=== PATIENT | female | born 1965 | race Hispanic/Latino ===

== ENCOUNTER 2018-02-07 14:52 | Emergency (ER) | payer SELFPAY ==
--- NOTE | 2018-02-07 17:08 | RAD REPORT ---
EXAM DESCRIPTION: RAD - C Spine Ap/Lat - 02/07/2018 4:54 pm CLINICAL HISTORY: Slip and fall, neck pain COMPARISON: None. FINDINGS: Cervical bodies are normal in height and alignment. No fracture or acute bony process seen . No disc space narrowing. Minimal spurring seen anterior inferior margin of C5. No facet joint align ment abnormality. Right lateral tilt of the neck may be muscle spasm or positioning artifact. There is no prevertebral soft tissue thickening or other suspicious soft tissue finding. IMPRESSION: Negative cervical spine examination for acute or significant finding.
--- NOTE | 2018-02-07 17:08 | RAD REPORT ---
EXAM DESCRIPTION: RAD - Lumbar Spine 3 Views - 02/07/2018 4:56 pm CLINICAL HISTORY: Slip and fall, back pain COMPARISON: None. FINDINGS: A three-view lumbar spine examination was performed. Lumbar bodies are normal in height an d alignment. No fracture or acute bony process seen. L4-5 disc space narrowing present. Prominent for age L3-4 and L4-5 facet degenerative change. L5-S1 facet degenerative changes less prominent. No par s defects identified. IMPRESSION: No compression fracture or acute lumbar finding identifiable. L4-5 degenerative disc disease with prominent lower lumbar facet degenerative change.
--- NOTE | 2018-02-07 17:19 | EDPHYS ---
Physician Documentation [facility] Name: Mary Maharaj Age: 52 yrs Sex: Female : 1965 Arrival Date: 02/07/2018 Time: 14:55 Bed 15 Private MD: ED Physician Tanvi Avery HPI: 02/07 16:52 This 52 yrs old Female presents to ER via Ambulatory with complaints of Fall jr8 Injury - BACK,KNEES,SHOULDER. 16:52 Details of fall: The patient fell from an upright position. Onset: The symptoms/episode jr8 began/occurred acutely, today. Associated injuries: The patient sustained neck injury, injury to the low back. Severity of symptoms: At their worst the symptoms were mild, in the emergency department the symptoms are unchanged. The patient has not experienced similar symptoms in the past. The patient has not recently seen a physician. While at work tripped and fell down stairs. Denies hitting head. Complains of neck pain and low back pain. Historical: - Allergies: 15:00 No Known Allergies; sv - PSHx: 15:00 shoulder surg; ; sv - Immunization history:: Adult Immunizations up to date. - Ebola Screening: : No symptoms or risks identified at this time. ROS: 16:52 Eyes: Negative for injury, pain, redness, and discharge, ENT: Negative for injury, jr8 pain, and discharge, Cardiovascular: Negative for chest pain, palpitations, and edema, Respiratory: Negative for shortness of breath, cough, wheezing, and pleuritic chest pain, Abdomen/GI: Negative for abdominal pain, nausea, vomiting, diarrhea, and constipation, MS/Extremity: Negative for injury and deformity, Skin: Negative for injury, rash, and discoloration, Neuro: Negative for headache, weakness, numbness, tingling, and seizure. 16:52 Neck: Positive for pain with movement, pain at rest, tenderness, bony tenderness. 16:52 Back: Positive for pain at rest, pain with movement, of the lumbar area, left low back and right low back. Exam: 16:52 Head/Face: Normocephalic, atraumatic. Eyes: Pupils equal round and reactive to light, jr8 extra-ocular motions intact. Lids and lashes normal. Conjunctiva and sclera are non-icteric and not injected. Cornea within normal limits. Periorbital areas with no swelling, redness, or edema. ENT: Nares patent. No nasal discharge, no septal abnormalities noted. Tympanic membranes are normal and external auditory canals are clear. Oropharynx with no redness, swelling, or masses, exudates, or evidence of obstruction, uvula midline. Mucous membranes moist. Cardiovascular: Regular rate and rhythm with a normal S1 and S2. No gallops, murmurs, or rubs. Normal PMI, no JVD. No pulse deficits. Respiratory: Lungs have equal breath sounds bilaterally, clear to auscultation and percussion. No rales, rhonchi or wheezes noted. No increased work of breathing, no retractions or nasal flaring. Abdomen/GI: Soft, non-tender, with normal bowel sounds. No distension or tympany. No guarding or rebound. No evidence of tenderness throughout. Skin: Warm, dry with normal turgor. Normal color with no rashes, no lesions, and no evidence of cellulitis. MS/ Extremity: Pulses equal, no cyanosis. Neurovascular intact. Full, normal range of motion. Neuro: Awake and alert, GCS 15, oriented to person, place, time, and situation. Cranial nerves II-XII grossly intact. Motor strength 5/5 in all extremities. Sensory grossly intact. Cerebellar exam normal. Normal gait. 16:52 Neck: External neck: tenderness, that is mild, of the left mid cervical area, right mid cervical area, left trapezius, lower cervical area and right trapezius, C-spine: vertebral tenderness, that is mild, appreciated at C5 and C6, Thyroid: appears normal, Trachea: is midline with no obvious abnormalities, ROM/movement: pain, that is mild, with any movement. 16:52 Back: pain, that is mild, of the lumbar area and low back area, ROM is painful, with rotation to the left, with flexion, normal spinal alignment noted, CVA tenderness, is absent, vertebral tenderness, is not appreciated. Vital Signs: 15:00 BP 138 / 63; Pulse 57; Resp 18; Temp 97.6; Pulse Ox 99% ; Weight 71.67 kg; Height 5 ft. sv 1 in. (154.94 cm); Pain 8/10; 15:00 Body Mass Index 29.85 (71.67 kg, 154.94 cm) sv MDM: 15:53 Patient medically screened. jr8 17:17 Data reviewed: vital signs, nurses notes, radiologic studies, plain films, and as a jr8 result, I will discharge patient. Data interpreted: Pulse oximetry: on room air is 99 %. Interpretation: normal. Counseling: I had a detailed discussion with the patient and/or guardian regarding: the historical points, exam findings, and any diagnostic results supporting the discharge/admit diagnosis, radiology results, the need for outpatient follow up, a family practitioner, to return to the emergency department if symptoms worsen or persist or if there are any questions or concerns that arise at home. 02/07 16:28 Order name: XRAY C Spine Ap/lat; Complete Time: 17:17 jr8 02/07 16:28 Order name: XRAY Lumbar Spine (3 Views); Complete Time: 17:17 jr8 Administered Medications: No medications were administered Disposition: 17:23 Co-signature as Attending Physician, Tanvi Avery MD. ma2 Disposition: 02/07/18 17:19 Discharged to Home. Impression: Low back pain, Sprain of ligaments of cervical spine. - Condition is Stable. - Discharge Instructions: Back Pain, Adult, Musculoskeletal Pain, Cervical Sprain, Heat Therapy. - Prescriptions for Ibuprofen 800 mg Oral Tablet - take 1 tablet by ORAL route every 12 hours As needed take with food; 20 tablet. Zanaflex 4 mg Oral Tablet - take 1 tablet by ORAL route every 8 hours As needed; 20 tablet. - Medication Reconciliation Form, Thank You Letter, Antibiotic Education, Prescription Opioid Use form. - Follow up: Private Physician; When: 1 week; Reason: Recheck today's complaints, Continuance of care, Re-evaluation by your physician. - Problem is new. - Symptoms have improved. Signatures: Dispatcher [employer] EDNaomy Arredondo RN RN aj1 Helena Mack RN RN sv Roszak, Josh, PA PA jr8 Tanvi Avery MD MD ma2 Corrections: (The following items were deleted from the chart) 18:00 17:19 02/07/2018 17:19 Discharged to Home. Impression: Low back pain; Sprain of aj1 ligaments of cervical spine. Condition is Stable. Forms are Medication Reconciliation Form, Thank You Letter, Antibiotic Education, Prescription Opioid Use. Follow up: Private Physician; When: 1 week; Reason: Recheck today's complaints, Continuance of care, Re-evaluation by your physician. Problem is new. Symptoms have improved. jr8
--- NOTE | 2018-02-07 17:19 | ER ---
Nurse's Notes [facility] Name: Mary Maharaj Age: 52 yrs Sex: Female : 1965 Arrival Date: 02/07/2018 Time: 14:55 Bed 15 Private MD: Diagnosis: Low back pain;Sprain of ligaments of cervical spine Presentation: 02/07 14:58 Presenting complaint: Patient states: slipped and fell on a slick floor down 5 steps, sv c/o head pain, hebert knee pain, low back pain, hebert shoulder/neck pain started last night. Denies LOC. Care prior to arrival: None. 14:58 Acuity: GRACIELA 4 sv 14:58 Method Of Arrival: Ambulatory sv 14:59 Transition of care: patient was not received from another setting of care. Onset of sv symptoms was February 06, 2018. 15:02 Note APAP taken last night. sv 17:59 Risk Assessment: Do you want to hurt yourself or someone else? Patient reports no aj1 desire to harm self or others. Initial Sepsis Screen: Does the patient meet any 2 criteria? No. Patient's initial sepsis screen is negative. Does the patient have a suspected source of infection? No. Patient's initial sepsis screen is negative. Triage Assessment: 15:00 General: Appears in no apparent distress. uncomfortable, Behavior is calm, cooperative, sv appropriate for age. Pain: Pain currently is 8 out of 10 on a pain scale. Neuro: Level of Consciousness is awake, alert, obeys commands, Oriented to person, place, time, situation, Moves all extremities. Full function Gait is steady. Respiratory: Respiratory effort is even, unlabored, Respiratory pattern is regular, symmetrical. Trauma Activation: Not Applicable Physician: ED Physician; Name: ; Notified At: ; Arrived At: Physician: General Surgeon; Name: ; Notified At: ; Arrived At: Physician: Radiology; Name: ; Notified At: ; Arrived At: Physician: Respiratory; Name: ; Notified At: ; Arrived At: Physician: Lab; Name: ; Notified At: ; Arrived At: Historical: - Allergies: 15:00 No Known Allergies; sv - PSHx: 15:00 shoulder surg; ; sv - Immunization history:: Adult Immunizations up to date. - Ebola Screening: : No symptoms or risks identified at this time. Screenin:37 Abuse screen: Denies threats or abuse. Denies injuries from another. Nutritional aj1 screening: No deficits noted. Tuberculosis screening: No symptoms or risk factors identified. 17:59 Fall Risk None identified. aj1 Assessment: 16:37 General: Appears in no apparent distress. uncomfortable, Behavior is calm, cooperative, aj1 appropriate for age. Pain: Complains of pain in scalp, left trapezius, right trapezius, left scapular area, right scapular area, thoracic area, right knee, left knee and neck Pain currently is 7 out of 10 on a pain scale. Neuro: Level of Consciousness is awake, alert, obeys commands. Cardiovascular: Patient's skin is warm and dry. Respiratory: Airway is patent Respiratory effort is even, unlabored, Respiratory pattern is regular, symmetrical. GI: No signs and/or symptoms were reported involving the gastrointestinal system. : No signs and/or symptoms were reported regarding the genitourinary system. EENT: No signs and/or symptoms were reported regarding the EENT system. Derm: No signs and/or symptoms reported regarding the dermatologic system. Skin is pink, warm \T\ dry. normal. Musculoskeletal: Range of motion: intact in all extremities. 17:58 Reassessment: Patient appears in no apparent distress at this time. No changes from aj1 previously documented assessment. Patient and/or family updated on plan of care and expected duration. Pain level reassessed. Patient is alert, oriented x 3, equal unlabored respirations, skin warm/dry/pink. Vital Signs: 15:00 BP 138 / 63; Pulse 57; Resp 18; Temp 97.6; Pulse Ox 99% ; Weight 71.67 kg; Height 5 ft. sv 1 in. (154.94 cm); Pain 8/10; 15:00 Body Mass Index 29.85 (71.67 kg, 154.94 cm) sv ED Course: 14:55 Patient arrived in ED. sb2 14:59 Triage completed. sv 15:00 Arm band placed on. sv 15:01 Patient placed in waiting room, Patient notified of wait time. sv 15:52 Tristen Swenson PA is PHCP. jr8 15:52 Tanvi Avery MD is Attending Physician. jr8 16:05 Naomy Sumner RN is Primary Nurse. aj1 16:37 Patient has correct armband on for positive identification. aj1 16:37 No provider procedures requiring assistance completed. aj1 16:54 XRAY C Spine Ap/lat In Process Unspecified. EDMS 16:54 XRAY Lumbar Spine (3 Views) In Process Unspecified. EDMS 17:58 Patient did not have IV access during this emergency room visit. aj1 Administered Medications: No medications were administered Outcome: 17:19 Discharge ordered by . sean 17:59 Discharged to home ambulatory. aj1 17:59 Condition: good 17:59 Discharge instructions given to patient, Instructed on discharge instructions, follow up and referral plans. no driving heavy equipment, Demonstrated understanding of instructions, follow-up care, medications, Prescriptions given X 2. 18:00 Patient left the ED. aj1 Signatures: Dispatcher [employer] Naomy Orneals, RN RN aj1 Helena Mack RN RN sv Roszak, Josh, PA PA jr8 Ciara Lozada2
[2018-02-07 18:45] VITALS: BP 138/63; TEMP 97.6; O2SAT 99
== END 2018-02-07 18:00 | disposition home or self-care (01) ==
LOC: ER 14:52
DX: M54.5 Low back pain (principal); S13.4XXA Sprain of ligaments of cervical spine, initial encounter; W10.9XXA Fall (on) (from) unspecified stairs and steps, initial encounter; Y99.0 Civilian activity done for income or pay; M51.36 Other intervertebral disc degeneration, lumbar region
CPT/HCPCS: 72040; 72100; 99283

== ENCOUNTER 2021-01-23 08:14 | Emergency (ER) | payer SELFPAY ==
--- OUTSIDE RECORDS SUMMARY | 2021-01-23 08:17 | XMS REPORT | Continuity of Care Document ---
:1965 Author Organization [facility] t Address [address] [place] [address] [address]. [address] [place] [address] Care Team Providers Name Role Phone PCP, DOES NOT HAVE A Primary Care Physician Unavailable Shaggy Lai Attending Clinician Shaggy DETNON Attending Clinician Unavailable Unknown Attending Clinician Unavailable Smith LEIGH Attending Clinician SMITH Attending Clinician Unavailable Shaggy DENTON Admitting Clinician Unavailable Kanwal PLATA Admitting Clinician Unavailable Payers Payer Name Policy Type Policy Number Effective Date Expiration Date S ource Problems Condition Condition Condition Status Onset Resolution Last Treating Co mments Source Name Details Category Date Date Treatment Clinician Date No known No known Disease Unive rs active active ity of problems problems [facility] Allergies, Adverse Reactions, Alerts Allergy Allergy Status Severity Reaction(s) Onset Inactive Treating Comm ents Source Name Type Date Date Clinician NO KNOWN Drug Active Univers ALLERGIE Class ity of S [facility] Social History Social Habit Start Date Stop Date Quantity Comments Source Exposure to Not sure [facility] SARS-CoV-2 (event) Medica l Branch Alcohol intake 2019-07-27 2019-07-27 0 /d [facility] 00:00:00 00:00:00 [facility] Sex Assigned At [birth year] [facility] 00:00:00 00:00:00 [facility] Smoking Status Start Date Stop Date Source Never smoker [facility] Medications Ordered Filled Start Stop Current Ordering Indication Dosage Frequency Signature Comments Components Source Medication Medication Date Date Medication? Clinician (SIG) Name Name ondansetron 2020-02- No 4mg 4 mg, Slow Univers (ZOFRAN 0-27 10-27 IV Push, ity of (PF)) 18:30: 18:21 ONCE, 1 [place] injection 4 00 :00 dose, On Medi richie mg Fri Branch 12/06/20 at 1330, ERIC ketorolac 2020-02- No 30mg 30 mg, Unive rs (TORADOL) 012-06 Slow IV ity of injection 18:30: 18:21 Push, [place] 30 mg 00 :00 ONCE, 1 Medical dose, On Branch Fri12/06/20 at 1330, Routine
grocery team member approving Restricted medication : ISHAAN DENTON NaCl 0.9% 2020-02- No 1000mL at 999 Uni vers (NS) bolus 012-06 mL/hr, ity of infusion 18:30: 19:57 1,000 mL, Nathan as 1,000 mL 00 :00 IV Medical Infusion, Branch ONCE, 1 dose, On Fri12/06/20 at 1330, ERIC benzonatate 2020-02- No 100mg 100 mg, U nivers (TESSALON 12-06 Oral, ity of PERLES) 18:15: 18:21 ONCE, 1 [place] capsule 100 00 :00 dose, On Medi richie mg Fri Branch 12/06/20 at 1315, Routine albuterol 2020-02- No 6{puff} 6 Puff, U nivers (VENTOLIN) 12-06 Inhalation it y of inhaler 6 18:15: 18:21 [place] 1 [place] Puff [place] :[place] dose, On Medical Wed Branch 12/06/20 at 1315, ERIC meclizine 2020-02- No 25mg 25 mg, Unive rs (TRAVEL-EAS 012-06 Oral, ity of E 18:15: 18:21 ONCE, 1 [place] (MECLIZINE) 00 :00 dose, On Medi richie ) tablet 25 Wed Branch mg 12/06/20 at 1315, ERIC ondansetron 2020-02 Yes [id number] 4mg Take 1 Univers 4 mg tablet 0 tablet by ity of 00:00: mouth [place] 00 every 8 Medical (eight) Branch hours as needed for Nausea and Vomiting (N/V). benzonatate 2020-02 Yes [id number] 100mg Take 1 Univers 100 mg 0-27 capsule by ity of capsule 00:00: mouth 3 [place] 00 (three) Medical times Branch daily as needed for Cough. dexamethaso 2019- No 10mg 10 mg, IV Univers ne 07-26 Push, ity of (DECADRON 08:45: 07:56 ONCE, 1 [place] PHOSPHATE[place] 00 :00 dose, Tue Medi richie injection 07/27/19 at Bran ch 10 mg 0345, STAT iohexol 2019- No 80mL 80 mL, Univers (OMNIPAQUE 07-26 Intravenou it y of 350 06:45: 06:43 s, ONCE, 1 [place] BULK-100 00 :00 dose, Tue Medica l mL) 07/27/19 at Branch injection 0145, 80 mL Routine ibuprofen Yes 800mg Take 800 Uni vers (MOTRIN) 5-18 mg by ity of 800 mg 22:03: mouth [place] tablet 15 every 6 Medical (six) Branch hours as needed. ibuprofen Yes 800mg Take 800 Uni vers (MOTRIN) 5-18 mg by ity of 800 mg 22:03: mouth [place] tablet 15 every 6 Medical (six) Branch hours as needed. ibuprofen 0 Yes 800mg Take 800 Uni vers (MOTRIN) 5-18 mg by ity of 800 mg 17:03: mouth [place] tablet 15 every 6 Medical (six) Branch hours as needed. diclofenac Yes 75mg Take 1 Unive rs (VOLTAREN) 5-18 tablet by ity of 75 mg EC 00:00: mouth 2 [place] tablet 00 (two) Medical times Branch daily with meals. diclofenac 0 Yes 75mg Take 1 Unive rs (VOLTAREN) 5-18 tablet by ity of 75 mg EC 00:00: mouth 2 [place] tablet 00 (two) Medical times Branch daily with meals. diclofenac 2016-0 Yes 75mg Take 1 Unive rs (VOLTAREN) 5-18 tablet by ity of 75 mg EC 00:00: mouth 2 [place] tablet 00 (two) Medical times Branch daily with meals. Vital Signs Vital Name Observation Time Observation Value Comments Source Systolic blood 2020-12-06 19:00:00 131 mm[Hg] Univer sity of pressure [place] [facility] Diastolic blood 2020-12-06 19:00:00 72 mm[Hg] Unive rsity of pressure [facility] Heart rate 2020-12-06 19:00:00 51 /min Universi ty of [facility] Respiratory rate 2020-12-06 19:00:00 18 /min Univ ersity of [facility] Oxygen saturation in 2020-12-06 19:00:00 98 /min University of Arterial blood by [facility] Pulse oximetry Branch Body temperature 2020-12-06 16:20:00 35.67 Zayra Univ ersity of [facility] Body weight 2020-12-06 16:20:00 78.019 kg Universi ty of [facility] BMI 2020-12-06 16:20:00 31.46 kg/m2 Universi ty of [facility] Systolic blood 2019-07-27 07:58:00 135 mm[Hg] Univer sity of pressure [facility] Diastolic blood 2019-07-27 07:58:00 74 mm[Hg] Unive rsity of pressure [facility] Heart rate 2019-07-27 07:58:00 50 /min Universi ty of [facility] Respiratory rate 2019-07-27 07:58:00 20 /min Univ ersity of [facility] Oxygen saturation in 2019-07-27 07:58:00 98 /min University of Arterial blood by [facility] Pulse oximetry Branch Body temperature 2019-07-27 02:43:00 37 Zayra [facility] ersity of [facility] Body weight 2019-07-27 02:43:00 74.798 kg Universi ty of [facility] BMI 2019-07-27 02:43:00 30.16 kg/m2 Universi ty [facility] [place] [facility] Procedures Procedure Date / Time Performing Clinician Source Performed URINALYSIS 2020-12-06 19:05:00 Ishaan Denton Universi ty [facility] [place] [facility] XR CHEST 2 VW 2020-12-06 18:04:00 Ishaan Denton Universi ty [facility] [place] [facility] LIPASE 2020-12-06 17:03:00 Ishaan Denton Universi ty [facility] [place] [facility] TROPONIN I 2020-12-06 17:03:00 Ishaan Denton Universi ty [facility] [place] [facility] COMP. METABOLIC PANEL 2020-12-06 17:03:00 [id number] CBC WITH DIFF 2020-12-06 17:03:00 Ishaan Denton [facility] N-TERMINAL PRO-BNP 2020-12-06 17:03:00 Ishaan Denton [facility] COVID-19 (ID NOW RAPID 2020-12-06 16:56:00 Ishaan Denton U [facility] TESTING) [facility] CONSENT/REFUSAL FOR 2020-12-06 16:21:12 Doctor Unassigned, No Un [facility] DIAGNOSIS AND TREATMENT Name Medical [place] POCT RAPID STREP SCREEN 2019-07-27 07:52:[address] [facility] FOR GROUP A Medical Branch COMP. METABOLIC PANEL 2019-07-27 04:54:[address] [facility] ([id number]) [facility] CBC WITH DIFFERENTIAL 2019-07-27 04:54:00 Romulo Plata [facility] Encounters Start End Encounter Admission Attending Care Care Encounter Source Date/Time Date/Time Type Type Clinicians Facility Department ID 2020-12-06 2020-12-06 Emergency Ibikunle, TRAUMA [id number] Univers 11:20:00 15:04:00 Ishaan [facility] [id number] [place] [id number] [facility] 014 Branch 2020-12-06 2020-12-06 Emergency X IBIKUNLE, [facility] ERT [id number] Univers 11:20:00 15:04:[facility] [place] [facility] 2019-07-29 2019-07-29 Telephone Unknown, UNIVERSIT [id number] Univers 00:00:00 00:00:00 Attending Y [id number] ity of NATIONAL [id number] Nathan as BANK [id number] [facility] BLDG. 144 Branch 2019-07-26 2019-07-27 Emergency Unknown, Attending TRAUMA [id number] Univers 21:50:51 03:04:00 Stephie Mtz LEFT HAND [id number] ity of 4.2.7.2.686 Rickey duncan [id number] [address] 2019-07-26 2019-07-27 Emergency X SMITH [facility] ERT [id number] Univers 21:50:51 03:04:00 [facility] [place] [facility] Results Test Description Test Time Test Comments Results Result Comments Source TROPONIN I 2020-12-06 17:51:29 Test Item Value Reference Range Interpretation Comme nts TROPONIN I (test code = 0.001 ng/mL See_Comment [Au tomated message] The [id number]) system which ge nerated this result tra nsmitted reference range : <=0.034. The reference r chris was not used to int erpret this result as normal/abnormal . OSCAR (test code = OSCAR) Reference (Normal) Range (defined by the 99th percentile reference limit): <= 0.034 ng/mL Note: Cardiac troponin begins to rise 3-4 hours after the onset of ischemia. Repeat in 4-6 hours if the sample was drawn within 3-4 hours of the onset of the symptom and found normal. Diagnosis of myocardial injury is made with acute changes in cTn concentrations with at least one serial sample above the 99th percentile upper reference limit (URL), taken together with the patient's clinical presentation. Biotin has been reported to cause a negative bias, interpret results relative to patient's use of biotin. Lab Interpretation Normal (test code = 50972-4) [id number] 17:51:29 Test Item Value Reference Range Interpretation Comments NT-proBNP (test code 61 pg/mL See_Comment [Autom ated = 5069337442) message] The system which generated this result transmitted reference range : <=125. The reference range was not used to interpret this result as normal/abnormal . OSCAR (test code = OSCAR) Biotin has been reported to cause a negative bias, interpret results relative to patient's use of biotin. Lab Interpretation Normal (test code = 06775-7) [facility] ([id number][facility]2020-12-06 17:36:10 Test Item Value Reference Range Interpretation Comments NA (test code = 137 mmol/L 135-145 3912166351) K (test code = 4.2 mmol/L 3.5-5.0 8216348394) CL (test code = 104 mmol/L 98-108 8057804419) CO2 TOTAL (test code 25 mmol/L 23-31 = 1014546437) AGAP (test code = 2-16 0916515020) BUN (test code = 20 mg/dL 7-23 0842601928) GLUCOSE (test code = 104 mg/dL 70-110 1082205366) CREATININE (test code 0.58 mg/dL 0.50-1.04 = 1301172913) TOTAL BILI (test code 0.6 mg/dL 0.1-1.1 = 8361157322) CALCIUM (test code = 9.4 mg/dL 8.6-10.6 9309501929) T PROTEIN (test code 7.8 g/dL 6.3-8.2 = 7242569505) ALBUMIN (test code = 4.5 g/dL 3.5-5.0 2042581067) ALK PHOS (test code = 106 U/L 34-122 9499429471) ALTv (test code = 20 U/L 5-35 1742-6) AST(SGOT) (test code 28 U/L 13-40 = 9500764040) eGFR (test code = mL/min/1.73m2 2949020580) OSCAR (test code = OSCAR) Association of Glomerular Filtration Rate (GFR) and Staging of Kidney Disease* + + +- +| GFR (mL/min/1.73 m2) ?| With Kidney Damage ?| ?Without Kidney Damage+ ------+ ----+ ------+| ?>90 ?| ?Stage one ?| ? Normal ?+ -+ + -+| ?60-89 ?| ?Stage two ?| ? Decreased GFR ? + + +- +| ?30-59 ?| ?Stage three ?| ? Stage three ? + + +- +| ?15-29 ?| ?Stage four ? | ? Stage four ?+ -+ + -+| ?<15 (or dialysis) ? ?| ?Stage five ? | ? Stage five ?+ -+ + -+ *Each stage assumes the associated GFR level has been in effect for at least three months. ?Stages 1 to 5, with or without kidney disease, indicate chronic kidney disease. Notes: Determination of stages one and two (with eGFR >59mL/min/1.73 m2) requires estimation of kidney damage for at least three months as defined by structural or functional abnormalities of the kidney, manifested by either:Pathological abnormalities or Markers of kidney damage (including abnormalities in the composition of the blood or urine or abnormalities in imaging tests). [facility] 17:31:29 Test Item Value Reference Range Interpretation Comments LIPASE (test code = 2534248181) 51 U/L 0-220 Lab Interpretation (test code = Normal 46426-1) [facility] WITH [id number] 17:20:05 Test Item Value Reference Range Interpretation Comments WBC (test code = See_Comment [Automated 2983-2) message] The sy stem which generated this result transmitted reference range : 4.30 - 11.10 10*3/?L. The reference range was not used to interpret this result as normal/abnormal . RBC (test code = See_Comment [Automated 901-8) message] The sy stem which generated this result transmitted reference range : 3.93 - 5.25 10*6/?L. The reference range was not used to interpret this result as normal/abnormal . HGB (test code = 13.8 g/dL 11.6-15.0 718-7) HCT (test code = 42.2 % 35.7-45.2 4544-3) MCV (test code = 94.2 fL 80.6-95.5 787-2) MCH (test code = 30.8 pg 25.9-32.8 785-6) MCHC (test code = 32.7 g/dL 31.6-35.1 786-4) RDW-SD (test code = 43.8 fL 39.0-49.9 37149-7) RDW-CV (test code = 12.8 % 12.0-15.5 788-0) PLT (test code = See_Comment [Automated 617-3) message] The sy stem which generated this result transmitted reference range : 166 - 358 10*3/ ?L. The reference r chris was not used to interpret this result as normal/abnormal . MPV (test code = 10.6 fL 9.5-12.9 88967-0) NRBC/100 WBC (test See_Comment [Automat ed code = 4980078058) message] The system which generated this result transmitted reference range : 0.0 - 10.0 /100 WBCs. The refer ence range was not u sed to interpret th is result as normal/abnormal . NRBC x10^3 (test code <0.01 See_Comment [Auto mated = 2959630113) message] The s ystem which generated this result transmitted reference range : 10*3/?L. The reference range was not used to interpret this result as normal/abnormal . GRAN MAT (NEUT) % 76.7 % (test code = 770-8) IMM GRAN % (test code 0.30 % = 7805704842) LYMPH % (test code = 17.2 % 736-9) MONO % (test code = 2.6 % 5905-5) EOS % (test code = 2.8 % 713-8) BASO % (test code = 0.4 % 706-2) GRAN MAT x10^3(ANC) 6.96 10*3/uL 1.88-7.09 (test code = 2425974110) IMM GRAN x10^3 (test 0.03 10*3/uL 0.00-0.06 code = 2191414886) LYMPH x10^3 (test code 1.56 10*3/uL 1.32-3.29 = 731-0) MONO x10^3 (test code 0.24 10*3/uL 0.33-0.92 L = 742-7) EOS x10^3 (test code = 0.25 10*3/uL 0.03-0.39 711-2) BASO x10^3 (test code 0.04 10*3/uL 0.01-0.07 = 704-7) Lab Interpretation Abnormal (test code = 61365-9) [facility] RAPID STREP SCREEN FOR GROUP [id number] 07:52:00 Test Item Value Reference Range Interpretation Comments POCT GP A STREP (test code = negative Negative - Negative 25167-8) Lab Interpretation (test code = Normal 93607-0) [facility] WITH [id number] 05:43:00 Test Item Value Reference Range Interpretation Comments WBC (test code = See_Comment H [Automated 1090-2) message] The sy stem which generated this result transmitted reference range : 4.30 - 11.10 10*3/?L. The reference range was not used to interpret this result as normal/abnormal . RBC (test code = See_Comment [Automated 789-8) message] The sy stem which generated this result transmitted reference range : 3.93 - 5.25 10*6/?L. The reference range was not used to interpret this result as normal/abnormal . HGB (test code = 12.5 g/dL 11.6-15 718-7) HCT (test code = 37.5 % 35.7-45.2 4544-3) MCV (test code = 94.5 fL 80.6-95.5 787-2) MCH (test code = 31.5 pg 25.9-32.8 785-6) MCHC (test code = 33.3 g/dL 31.6-35.1 786-4) RDW-SD (test code = 44.9 fL 39-49.9 30472-4) RDW-CV (test code = 12.9 % 12-15.5 788-0) PLT (test code = See_Comment [Automated 777-3) message] The sy stem which generated this result transmitted reference range : 166 - 358 10*3/ ?L. The reference r chris was not used to interpret this result as normal/abnormal . MPV (test code = 10.8 fL 9.5-12.9 03121-5) NRBC/100 WBC (test See_Comment [Automat ed code = 8663309495) message] The system which generated this result transmitted reference range : 0.0 - 10.0 /100 WBCs. The refer ence range was not u sed to interpret th is result as normal/abnormal . NRBC x10^3 (test code <0.01 See_Comment [Auto mated = 5419672652) message] The s ystem which generated this result transmitted reference range : 10*3/?L. The reference range was not used to interpret this result as normal/abnormal . GRAN MAT (NEUT) % 35.7 % (test code = 770-8) IMM GRAN % (test code 0.90 % = 2222638477) LYMPH % (test code = 41.4 % 736-9) MONO % (test code = 4.8 % 5905-5) EOS % (test code = 16.2 % 713-8) BASO % (test code = 1.0 % 706-2) GRAN MAT x10^3(ANC) 4.13 10*3/uL 1.88-7.09 (test code = 0385786141) IMM GRAN x10^3 (test 0.10 10*3/uL 0-0.06 H code = 2521678087) LYMPH x10^3 (test code 4.77 10*3/uL 1.32-3.29 H = 731-0) MONO x10^3 (test code 0.55 10*3/uL 0.33-0.92 = 742-7) EOS x10^3 (test code = 1.87 10*3/uL 0.03-0.39 H 711-2) BASO x10^3 (test code 0.11 10*3/uL 0.01-0.07 H = 704-7) Lab Interpretation Abnormal (test code = 56796-0) [facility]. METABOLIC PANEL ([id number])2019-07-27 05:29:00 Test Item Value Reference Range Interpretation Comments NA (test code = 138 mmol/L 135-145 1010314186) K (test code = 4.2 mmol/L 3.5-5 0083597051) CL (test code = 106 mmol/L 98-108 5689523698) CO2 TOTAL (test code = 26 mmol/L 23-31 5615723113) AGAP (test code = 2-16 4513497034) BUN (test code = 24 mg/dL 7-23 H 4391533316) GLUCOSE (test code = 104 mg/dL 70-110 3679980388) CREATININE (test code = 0.82 mg/dL 0.5-1.04 5810164712) TOTAL BILI (test code = 0.1 mg/dL 0.1-1.6 6272395095) CALCIUM (test code = 9.4 mg/dL 8.6-10.6 6004305011) T PROTEIN (test code = 7.2 g/dL 6.3-8.2 3335311656) ALBUMIN (test code = 4.2 g/dL 3.5-5 3363790865) ALK PHOS (test code = 86 U/L 34-122 5267957106) ALTv (test code = 27 U/L 5-35 1742-6) AST(SGOT) (test code = 27 U/L 13-40 8684208382) eGFR Calculation mL/min/1.73m2 (Non-) (test code = 7359577434) eGFR Calculation mL/min/1.73m2 () (test code = 4775617233) OSCAR (test code = OSCAR) Association of Glomerular Filtration Rate (GFR) and Staging of Kidney Disease* + --+ --+ ------+| GFR (mL/min/1.73 m2) ?| With Kidney Damage ?| ?Without Kidney Damage+ --------+ --------+ +| ?>90 ?| ?Stage one ?| ? Normal ?+ ---+ ---+ -------+| ?60-89 ?| ?Stage two ?| ? Decreased GFR ? + --+ --+ ------+| ?30-59 ?| ?Stage three ?| ? Stage three ? + --+ --+ ------+| ?15-29 ?| ?Stage four ? | ? Stage four ?+ ---+ ---+ -------+| ?<15 (or dialysis) ? ?| ?Stage five ? | ? Stage five ?+ ---+ ---+ -------+ *Each stage assumes the associated GFR level has been in effect for at least three months. ?Stages 1 to 5, with or without kidney disease, indicate chronic kidney disease. Notes: Determination of stages one and two (with eGFR >59mL/min/1.73 m2) requires estimation of kidney damage for at least three months as defined by structural or functional abnormalities of the kidney, manifested by either:Pathological abnormalities or Markers of kidney damage (including abnormalities in the composition of the blood or urine or abnormalities in imaging tests). Lab Interpretation Abnormal (test code = 23934-2) [facility]"
[2021-01-23] MEDS ORDERED: ACETAMINOPHEN 500 MG TAB ONE (09:11)
[2021-01-23] MEDS ORDERED: LEVALBUTEROL 1.25 MG/3 ML NEB ONE (09:26)
--- NOTE | 2021-01-23 10:09 | RAD REPORT ---
EXAM DESCRIPTION: RAD - Chest Single View - 01/23/2021 9:57 am CLINICAL HISTORY: fever, cough COMPARISON: July 2016 TECHNIQUE: AP portable chest image was obtained 01/23/2021 9:57 am . FINDINGS: Lungs are clear. Interstitial pattern matches comparison. Heart and vasculature are normal . No measurable pleural effusion and no pneumothorax. No acute bony abnormality seen. No acute aortic findings suspected. IMPRESSION: No acute cardiopulmonary process.
[2021-01-23 10:16] LABS: SARS-COV-2 RT PCR POSITIVE (NEGATIVE)
[2021-01-23] MEDS ORDERED: LIDOCAINE 1% MPF 5 ML VIAL ONE (10:50)
--- NOTE | 2021-01-23 10:58 | RAD REPORT ---
EXAM DESCRIPTION: CT - Head Brain Wo Cont - 01/23/2021 10:46 am CLINICAL HISTORY: HEADACHE COMPARISON: Head Brain Wo Cont dated 12/17/2016 TECHNIQUE: Axial 5 mm thick images of the head were obtained without IV contrast. All CT scans are performed using dose optimization technique as appropriate and may include automated exposure control or mA/KV adjustment according to patient size. FINDINGS: No intracranial hemorrhage, mass, edema or shift of mid-line structures. No acute infarcti on changes seen. No abnormal extra-axial fluid collections. Ventricles are normal. Mastoid air cells and visualized portions of the paranasal sinuses are clear. No acute bony findings. No identifiable changes from prior examination. IMPRESSION: Negative non-contrast CT head examination.
[2021-01-23] MEDS ORDERED: NA CHLORIDE 0.9% 1,000 ML ONE (11:47)
[2021-01-23 12:56] LABS: Appearance CLEAR (CLEAR); Body Fluid Source CSF; Body Fluid WBC 0 /mm^3; Color of fluid Colorless (COLORLESS)
[2021-01-23 12:57] LABS: Appearance CLEAR (CLEAR); Body Fluid Source CSF; Color of fluid Colorless (COLORLESS); Fluid Total Volume 4 ml
[2021-01-23 12:58] LABS: Body Fluid WBC 1 /mm^3
[2021-01-23] MEDS ORDERED: CASIRIVIMAB/IMDEVIMAB 10 ML VIAL ONE (13:38)
[2021-01-23] MEDS ORDERED: NA CHLORIDE 0.9% 250 ML ONE (14:07)
--- NOTE | 2021-01-23 16:46 | EDPHYS ---
Physician Documentation [facility] Name: Mary Maharaj Age: 55 yrs Sex: Female : 1965 Arrival Date: 01/23/2021 Time: 08:18 Bed 4 Private MD: ED Physician Jamison Ordonez HPI: 01/23 08:45 This 55 yrs old Female presents to ER via Ambulatory with complaints of Fever. [facility] 08:45 The patient reports fever, not measured (subjective). Onset: The symptoms/episode jmm began/occurred gradually, 1 day(s) ago. Modifying factors:. Associated signs and symptoms: Pertinent positives: cough. The patient has not experienced similar symptoms in the past. 5-year-old female with no known chronic medical conditions presents emerged part with complaints of fever beginning approximately a day ago but states that she has had headache for over a week that is different character to previous headaches states she has neck pain as well.. Historical: - Allergies: 08:31 No Known Allergies; [facility] - Home Meds: 08:31 amoxicillin 500 mg Oral cap 1 cap every 12 hours [Active]; [facility] - Immunization history:: Adult Immunizations up to date, Client reports receiving the 2nd dose of the Covid vaccine. - Social history:: Smoking status: Patient denies any tobacco usage or history of. ROS: 08:45 Constitutional: Positive for body aches, fever. jmm 08:45 Respiratory: Positive for cough. 08:45 All other systems are negative. 08:45 Neuro: Positive for headache. [facility] Exam: 08:45 Head/Face: atraumatic. Eyes: EOMI, no conjunctival erythema appreciated jmm 08:45 Chest/axilla: Normal chest wall appearance and motion. Cardiovascular: Regular rate and rhythm. No edema appreciated Respiratory: Normal respirations, no respiratory distress appreciated Abdomen/GI: Non distended, soft Back: Normal ROM Skin: General appearance color normal 08:45 Constitutional: The patient appears in no acute distress, alert, awake. 08:45 Neck: ROM/movement: pain. 08:45 Musculoskeletal/extremity: ROM: intact in all extremities. 08:45 Skin: Appearance: Color: normal in color. 08:45 Neuro: Orientation: is normal, Mentation: is normal, Memory: is normal. 08:45 Psych: Behavior/mood is pleasant, cooperative. Vital Signs: 08:29 BP 124 / 64; Pulse 84; Resp 17; Temp 99.6(T); Pulse Ox 98% ; Weight 68.04 kg; Height 5 6 ft. (152.40 cm); Pain 7/10; 11:00 BP 117 / 71; Pulse 63; Resp 17; Pulse Ox 98% on R/A; ll3 12:30 BP 119 / 64; Pulse 53; Resp 15; Pulse Ox 100% on R/A; ll3 13:45 BP 129 / 69; Pulse 56; Resp 15; Pulse Ox 100% on R/A; ll3 14:30 BP 131 / 68; Pulse 53; Resp 15; Pulse Ox 100% on R/A; ll3 15:50 BP 115 / 52; Pulse 53; Resp 15; Pulse Ox 100% on R/A; ll3 16:38 BP 160 / 54; Pulse 77; Resp 15; Pulse Ox 94% ; jl7 16:59 BP 126 / 64; Pulse 70; Resp 16; Pulse Ox 95% ; vg1 08:29 Body Mass Index 29.29 (68.04 kg, 152.40 cm) [facility] Procedures: 17:13 Lumbar Puncture: Patient placed in left lateral decubitus position. Prepped with haley Betadine. Draped using sterile technique. clear fluid. Puncture site dressed with band aid, Patient tolerated well. MDM: 09:[address] [facility] 16:45 Data reviewed: vital signs, nurses notes. Counseling: I had a detailed discussion with haley the patient and/or guardian regarding: the historical points, exam findings, and any diagnostic results supporting the discharge/admit diagnosis, lab results, radiology results, the need for outpatient follow up, to return to the emergency department if symptoms worsen or persist or if there are any questions or concerns that arise at home. 01/23 08:44 Order name: COVID-19/FLU A+B (Document "Date of Onset" if Symptomatic); Complete Time: bd 10:24 01/23 09:20 Order name: Strep; Complete Time: 10:08 [facility] 01/23 10:04 Order name: Throat Culture [facility] 01/23 10:40 Order name: Csf Culture [facility] 01/23 09:20 Order name: Chest Single View XRAY; Complete Time: 10:11 [facility] 01/23 10:38 Order name: CT Head Brain wo Cont; Complete Time: 11:01 [facility] 01/23 10:40 Order name: Fluid Cell Count,Body; Complete Time: 13:02 [facility] 01/23 10:40 Order name: Spinal Fluid Profile; Complete Time: 16:46 [facility] 01/23 10:40 Order name: Lumbar Puncture Setup; Complete Time: 10:56 [facility] 01/23 10:40 Order name: LP Consents; Complete Time: 10:56 [facility] 01/23 10:40 Order name: LP Setup; Complete Time: 10:56 [facility] 01/23 10:40 Order name: Saline Lock; Complete Time: 10:56 [facility] 01/23 10:43 Order name: Gown patient; Complete Time: 10:47 [facility] Administered Medications: 09:18 Drug: Tylenol 1000 mg Route: PO; ss 10:30 Follow up: Response: No adverse reaction; Pain is unchanged, physician notified jl7 09:33 Drug: Xopenex (levalbuterol) (3) 1.25 mg Route: Inhalation; ss 11:30 Drug: Lidocaine (1 %) 20 ml {Note: administed by Christopher Hendrix} Volume: 20 ml; Route: mk Infiltration; 15:41 Follow up: Response: No adverse reaction jl7 11:49 Drug: NS 0.9% 1000 ml Route: IV; Rate: 1 bolus; Site: right antecubital; mk 14:21 Follow up: Response: No adverse reaction; IV Intake: 1000ml ll3 14:21 Drug: Casirivimab-Imdevimab Dose Pack 120 mg/mL-120 mg/mL (EUA) 1 application Route: ll3 IV; Rate: calculated rate; Site: right antecubital; 15:21 Follow up: IV Status: Completed infusion; IV Intake: 260ml jl7 Disposition: 17:35 Co-signature as Attending Physician, Jamison Ordonez MD I agree with the assessment and rn plan of care. Attestation: The patient's history, exam findings, diagnostics, and a summary of any interventions or procedures was reviewed in detail with Christopher LANCASTER. Disposition Summary: 01/23/21 16:46 Discharge Ordered Location: Home jm Condition: Stable jmm Diagnosis - Coronavirus infection, unspecified jmm - Headache jmm Followup: jmm - With: Private Physician - When: 2 - 3 days - Reason: Recheck today's complaints, Continuance of care, Re-evaluation by your physician Discharge Instructions: - Discharge Summary Sheet juan luis - General Headache Without Cause jmm - COVID-19 juan luis Forms: - Medication Reconciliation Form jm - Thank You Letter juan luism - Antibiotic Education juan luism - Prescription Opioid Use juan luis Signatures: Dispatcher [employer] EDChristopher Dunn PA PA [facility] Jaimson Ordonez MD MD rn Smirch, Shelby RN RN ss Nuris Loza RN RN ll3 Nelda Monroe RN RN jh6 Selma Garcia, RN RN Marichuy Levy RN jl7
--- NOTE | 2021-01-23 16:46 | ER ---
Nurse's Notes [facility] Name: Mary Maharaj Age: 55 yrs Sex: Female : 1965 Arrival Date: 01/23/2021 Time: 08:18 Bed 4 Private MD: Diagnosis: Coronavirus infection, unspecified;Headache Presentation: 01/23 08:29 Chief complaint: Patient states: fls started yesterday,. fever last night that she took jh6 Tylenol \T\ 0200. Coronavirus screen: Vaccine status: Patient reports receiving the 2nd dose of the covid vaccine. chills, congestion, fatigue, fever, headache, muscle pain, runny nose. Ebola Screen: Patient denies travel to an Ebola-affected area in the 21 days before illness onset. Initial Sepsis Screen: Does the patient meet any 2 criteria? No. Patient's initial sepsis screen is negative. Does the patient have a suspected source of infection? No. Patient's initial sepsis screen is negative. Risk Assessment: Do you want to hurt yourself or someone else? Patient reports no desire to harm self or others. Onset of symptoms was January 22, 2021. 08:29 Method Of Arrival: Ambulatory [facility] 08:29 Acuity: GRACIELA 4 6 Triage Assessment: 08:32 General: Appears uncomfortable, ill, Behavior is calm, cooperative. Pain: Pain [facility] currently is 6 out of 10 on a pain scale. Quality of pain is described as aching, Pain began 1 day ago. Is continuous, Noted to be. Historical: - Allergies: 08:31 No Known Allergies; 6 - Home Meds: 08:31 amoxicillin 500 mg Oral cap 1 cap every 12 hours [Active]; 6 - Immunization history:: Adult Immunizations up to date, Client reports receiving the 2nd dose of the Covid vaccine. - Social history:: Smoking status: Patient denies any tobacco usage or history of. Screenin:38 Abuse screen: Denies threats or abuse. Denies injuries from another. Nutritional jl7 screening: No deficits noted. Tuberculosis screening: No symptoms or risk factors identified. Fall Risk IV access (20 points). Total Briggs Fall Scale indicates No Risk (0-24 pts). Assessment: 10:45 Reassessment: Patient appears in no apparent distress at this time. No changes from ll3 previously documented assessment. Patient and/or family updated on plan of care and expected duration. Pain level reassessed. Patient is alert, oriented x 3, equal unlabored respirations, skin warm/dry/pink. 11:45 Reassessment: Patient appears in no apparent distress at this time. No changes from ll3 previously documented assessment. Patient and/or family updated on plan of care and expected duration. Pain level reassessed. Patient is alert, oriented x 3, equal unlabored respirations, skin warm/dry/pink. 13:24 Reassessment: Patient appears in no apparent distress at this time. No changes from ll3 previously documented assessment. Patient and/or family updated on plan of care and expected duration. Pain level reassessed. Patient is alert, oriented x 3, equal unlabored respirations, skin warm/dry/pink. 14:30 Reassessment: Patient appears in no apparent distress at this time. No changes from ll3 previously documented assessment. Patient and/or family updated on plan of care and expected duration. Pain level reassessed. Patient is alert, oriented x 3, equal unlabored respirations, skin warm/dry/pink. 15:50 Reassessment: Patient appears in no apparent distress at this time. No changes from ll3 previously documented assessment. Patient and/or family updated on plan of care and expected duration. Pain level reassessed. Patient is alert, oriented x 3, equal unlabored respirations, skin warm/dry/pink. 16:59 Reassessment: Patient appears in no apparent distress at this time. Patient is alert, vg1 oriented x 3, equal unlabored respirations, skin warm/dry/pink. Patient denies pain at this time. Vital Signs: 08:29 BP 124 / 64; Pulse 84; Resp 17; Temp 99.6(T); Pulse Ox 98% ; Weight 68.04 kg; Height 5 jh6 ft. (152.40 cm); Pain 7/10; 11:00 BP 117 / 71; Pulse 63; Resp 17; Pulse Ox 98% on R/A; ll3 12:30 BP 119 / 64; Pulse 53; Resp 15; Pulse Ox 100% on R/A; ll3 13:45 BP 129 / 69; Pulse 56; Resp 15; Pulse Ox 100% on R/A; ll3 14:30 BP 131 / 68; Pulse 53; Resp 15; Pulse Ox 100% on R/A; ll3 15:50 BP 115 / 52; Pulse 53; Resp 15; Pulse Ox 100% on R/A; ll3 16:38 BP 160 / 54; Pulse 77; Resp 15; Pulse Ox 94% ; jl7 16:59 BP 126 / 64; Pulse 70; Resp 16; Pulse Ox 95% ; vg1 08:29 Body Mass Index 29.29 (68.04 kg, 152.40 cm) [facility] ED Course: 08:18 Patient arrived in ED. mr 08:31 Triage completed. 6 08:33 Arm band placed on left wrist. 6 08:52 COVID swab sent to lab. [facility] 09:08 Christopher Uriostegui PA is PHCP. [facility] 09:08 Jamison Ordonez MD is Attending Physician. [facility] 09:17 Sharona Skaggs, RN is Primary Nurse. ss 09:33 Strep Sent. ss 09:57 Chest Single View XRAY In Process Unspecified. EDMS 10:46 CT Head Brain wo Cont In Process Unspecified. EDMS 11:36 Primary Nurse role handed off by Sharona Skaggs, RN 3 11:36 Nuris Loza, NOBLE is Primary Nurse. 3 16:38 Patient has correct armband on for positive identification. Placed in gown. Bed in low jl7 position. Call light in reach. Side rails up X 1. Pulse ox on. NIBP on. 17:00 No provider procedures requiring assistance completed. IV discontinued, intact, vg1 bleeding controlled, No redness/swelling at site. Pressure dressing applied. Administered Medications: 09:18 Drug: Tylenol 1000 mg Route: PO; ss 10:30 Follow up: Response: No adverse reaction; Pain is unchanged, physician notified [facility] 09:33 Drug: Xopenex (levalbuterol) (3) 1.25 mg Route: Inhalation; ss 11:30 Drug: Lidocaine (1 %) 20 ml {Note: administed by Christopher LANCASTER .} Volume: 20 ml; Route: mk Infiltration; 15:41 Follow up: Response: No adverse reaction 7 11:49 Drug: NS 0.9% 1000 ml Route: IV; Rate: 1 bolus; Site: right antecubital; 14:21 Follow up: Response: No adverse reaction; IV Intake: 1000ml ll3 14:21 Drug: Casirivimab-Imdevimab Dose Pack 120 mg/mL-120 mg/mL (EUA) 1 application Route: ll3 IV; Rate: calculated rate; Site: right antecubital; 15:21 Follow up: IV Status: Completed infusion; IV Intake: 260ml jl7 Intake: 14:21 IV: 1000ml; Total: 1000ml. ll3 15:21 IV: 260ml; Total: 1260ml. jl7 Outcome: 16:46 Discharge ordered by . haley 17:00 Discharged to home ambulatory. vg1 17:00 Condition: good 17:00 Discharge instructions given to patient, Instructed on discharge instructions, follow up and referral plans. Demonstrated understanding of instructions, follow-up care. 17:00 Patient left the ED. vg1 Signatures: Dispatcher [employer] EDMS Christopher Uriostegui PA PA jmm Misa Camacho mr GilesSharona, RN RN ss Marichuy Maier RN RN jl7 Katherine Martin RN RN vg1 Nuris Loza RN RN ll3 Nelda Monroe, RN RN jh6 Selma Garcia, RN RN mk
[2021-01-23 17:05] VITALS: TEMP 99.6
[2021-01-23 17:15] VITALS: BP 126/64; O2SAT 95
[2021-01-25 07:28] LABS: CSF Glucose 57
== END 2021-01-23 17:00 | disposition home or self-care (01) ==
LOC: ER 08:14
PROC: 009U3ZX Drainage of Spinal Canal, Percutaneous Approach, Diagnostic (ICD-10-PCS; principal; 2021-01-23)
DX: U07.1 COVID-19 (principal)
CPT/HCPCS: 0240U; 36415; 62270; 70450; 71045; 82945; 84157; 87070; 87081; 89050; 96365; 99284; J7030; J7050; M0243

== ENCOUNTER 2021-10-01 21:11 | Emergency (ER) | payer SELFPAY ==
--- OUTSIDE RECORDS SUMMARY | 2021-10-01 21:14 | XMS REPORT | Continuity of Care Document ---
:1965 Author Organization [facility] Address [address] [place] [address] [address] [place] [address] Care Team Providers Name Role Phone PCP, PATIENT DOES NOT HAVE A Primary Care Physician UnavailIshaan Morgan Attending Clinician ISHAAN DENTON Attending Clinician Unavailable Unknown, Attending Attending Clinician Unavailable Rip Gambino Attending Clinician RIP MOORE Attending Clinician Unavailable ISHAAN DENTON Admitting Clinician Unavailable ROMULO PLATA Admitting Clinician Unavailable Payers Payer Name Policy Type Policy Number Effective Date Expiration Date S ource Problems Condition Condition Condition Status Onset Resolution Last Treating Co mments Source Name Details Category Date Date Treatment Clinician Date No known No known Disease Unive rs active active ity of problems problems [facility] Allergies, Adverse Reactions, Alerts Allergy Allergy Status Severity Reaction(s) Onset Inactive Treating Comm ents Source Name Type Date Date Clinician NO KNOWN Drug Active Univers ALLERGIE Class ity of S [facility] Social History Social Habit Start Date Stop Date Quantity Comments Source Exposure to Not sure [facility] SARS-CoV-2 (event) Medica l Branch Alcohol intake 2019-07-27 2019-07-27 0 /d [facility] 00:00:00 00:00:00 [facility] Sex Ass[birth year] At [birth year] [facility] 00:00:00 00:00:00 Medical [place] Smoking Status Start Date Stop Date Source Never smoker [facility] Medications Ordered Filled Start Stop Current Ordering Indication Dosage Frequency Signature Comments Components Source Medication Medication Date Date Medication? Clinician (SIG) Name Name ondansetron 2020-02- No 4mg 4 mg, Slow Univers (ZOFRAN 012-06 IV Push, ity of (PF)) 18:30: 18:21 ONCE, 1 [place] injection 4 00 :00 dose, On Medi richie mg Wed Branch 12/06/20 at 1330, ERIC ketorolac 2020-02- No 30mg 30 mg, Unive rs (TORADOL) 012-06 Slow IV ity of injection 18:30: 18:21 Push, [place] 30 mg 00 :00 ONCE, 1 Medical dose, On Branch 12/06/20 at 1330, Routine
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 Restricted medication : ISHAAN DENTON NaCl 0.9% 2020-02 No 1000mL at 999 Uni vers (NS) bolus 0- mL/hr, ity of infusion 18:30: 19:57 1,000 mL, Nathan as 1,000 mL 00 :00 IV Medical Infusion, Branch ONCE, 1 dose, On Fri12/06/20 at 1330, ERIC benzonatate 2020-02- No 100mg 100 mg, U nivers (TESSALON 012-06 Oral, ity of PERLES) 18:15: 18:21 ONCE, 1 [place] capsule 100 00 :00 dose, On Medi richie mg [facility] Branch 12/06/20 at 1315, Routine albuterol 2020-02- [...] 12/06/20 at 1315, ERIC ondansetron 2020-02 Yes [id number] 4mg Take 1 Univers 4 mg tablet 0-27 tablet by ity of 00:00: mouth [place] 00 every 8 Medical (eight) Branch hours as needed for Nausea and Vomiting (N/V). benzonatate 2020-02 Yes [id number] 100mg Take 1 Univers 100 mg 0-27 capsule by ity of capsule 00:00: mouth 3 [place] 00 (three) Medical times Branch daily as needed for Cough. dexamethaso 2019-2019- No 10mg 10 mg, IV Univers ne 07-26 Push, ity of (DECADRON 08:45: 07:56 ONCE, 1 [place] PHOS[place]ATE[place] 00 :00 dose, Tue Medi richie injection 07/27/19 at Bran ch 10 mg 0345, STAT iohexol 2019-2019- No 80mL 80 mL, Univers (OMNIPAQUE 07-26 Intravenou it y of 350 06:45: 06:43 s, ONCE, 1 [place] BULK-100 00 :00 dose, Tue Medica l mL) 07/27/19 at Branch injection 0145, 80 mL Routine ibuprofen 2015-0 Yes 800mg Take 800 Uni vers (MOTRIN) 5-18 mg by ity of 800 mg 22:03: mouth [place] tablet 15 every 6 Medical (six) Branch hours as needed. ibuprofen 2016-0 Yes 800mg Take 800 Uni vers (MOTRIN) 5-18 mg by ity of 800 mg 22:03: mouth [place] tablet 15 every 6 Medical (six) Branch hours as needed. ibuprofen 2016-0 Yes 800mg Take 800 Uni vers (MOTRIN) 5-18 mg by ity of 800 mg 17:03: mouth [place] tablet 15 every 6 Medical (six) Branch hours as needed. diclofenac 2016-0 Yes 75mg Take 1 Unive [...] 19:00:00 131 mm[Hg] Univer sity of pressure [facility] Branch Diastolic blood 2020-12-06 19:00:00 72 mm[Hg] Unive rsity of pressure [facility] Heart rate 2020-12-06 19:00:00 51 /min Universi ty of [facility] Respiratory rate 2020-12-06 19:00:00 18 /min Univ ersity of [facility] Oxygen saturation in 2020-12-06 19:00:00 98 /min University of Arterial blood by [facility] Pulse oximetry Branch Body temperature 2020-12-06 16:20:[address] [facility] ersity of [facility] Body weight 2020-12-06 16:20:00 78.019 kg Universi ty of [facility] BMI 2020-12-06 16:20:00 31.46 kg/m2 Universi ty of [facility] Systolic blood 2019-07-27 07:58:00 135 mm[Hg] Univer sity of pressure [facility] Diastolic blood 2019-07-27 07:58:00 74 mm[Hg] Unive rsity of pressure [facility] Heart rate 2019-07-27 07:58:00 50 /min Universi ty of [facility] Branch Respiratory rate 2019-07-27 07:58:00 20 /min Univ [facility] Oxygen saturation in 2019-07-27 07:58:00 98 /min University of Arterial blood by [facility] Pulse oximetry Branch Body temperature 2019-07-27 02:43:[address] [facility] ersity of [facility] Body weight 2019-07-27 02:43:00 74.798 kg Universi ty of [place] [facility] [place] BMI 2019-07-27 02:43:00 30.16 kg/m2 Universi ty of [facility] Branch Procedures Procedure Date / Time Performing Clinician Source Performed URINALYSIS 2020-12-06 19:05:00 Ishaan Denton Universi ty of [facility] XR CHEST 2 VW 2020-12-06 18:04:00 Ishaan Denton Universi ty of [facility] LIPASE 2020-12-06 17:03:00 Ishaan Denton Universi ty [facility] TROPONIN I 2020-12-06 17:03:00 Ishaan Denton [facility] COMP. METABOLIC PANEL 2020-12-06 17:03:00 Ishaan Denton Un [facility] ([id number]) Medical [place] CBC WITH DIFF 2020-12-06 17:03:00 Ishaan Denton [facility] N-TERMINAL PRO-BNP 2020-12-06 17:03:00 Ishaan Denton [facility] COVID-19 (ID NOW RAPID 2020-12-06 16:56:00 Ishaan Denton U [facility] TESTING) [facility] CONSENT/REFUSAL FOR 2020-12-06 16:21:12 Doctor Unassigned, No Un [facility] DIAGNOSIS AND TREATMENT Name [facility] POCT RAPID STREP SCREEN 2019-07-27 07:52:00 Romulo Plata [facility] FOR GROUP A Medical [place] COMP. METABOLIC PANEL 2019-07-27 04:54:00 Romulo Plata [facility] ([id number]) [facility] CBC WITH DIFFERENTIAL 2019-07-27 04:54:[address] [facility] Encounters Start End Encounter Admission Attending Care Care Encounter Source Date/Time Date/Time Type Type Clinicians Facility Department ID 2020-12-06 2020-12-06 Emergency [place]le, TRAUMA [id number] Univers 11:20:00 15:04:00 Ishaan [facility] [id number] [id number] [address] Branch 2020-12-06 2020-12-06 Emergency X IBIKUNLE, [facility] ERT [id number] Univers 11:20:00 15:04:00 General acute hospital 2019-07-29 2019-07-29 Telephone Unknown, UNIVERSIT [id number] Univers 00:00:00 00:00:00 Attending Y [id number] ity of NATIONAL 4.2.7.2.686 Nathan as BANK [phone] [facility] BLDG. 144 Branch 2019-07-26 2019-07-27 Emergency Unknown, Attending TRAUMA [id number] Univers 21:50:51 03:04:00 Rip Moore HERSHEY [id number] [place] [id number] [facility] 014 Branch 2019-07-26 2019-07-27 Emergency X OSCAR [email or web address] ERT [id number] Univers 21:50:51 03:04:00 [facility] ity [facility] Results Test Description Test Time Test Comments Results Result Comments Source TROPONIN I 2020-12-06 17:51:29 Test Item Value Reference Range Interpretation Comme nts TROPONIN I (test code = 0.001 ng/mL See_Comment [Au tomated message] The 0885530475) system which ge nerated this result tra [...] biotin. Lab Interpretation Normal (test code = 79794-4) [id number] 17:51:29 Test Item Value Reference Range Interpretation Comments NT-proBNP (test code 61 pg/mL See_Comment [Autom ated = 9605042072) message] The system which generated this result transmitted reference range : <=125. The reference range was not used to interpret this result as normal/abnormal . OSCAR (test code = OSCAR) Biotin has been reported to cause a negative bias, interpret results relative to patient's use of biotin. Lab Interpretation Normal (test code = 27299-6) [facility]. METABOLIC PANEL ([id number])2020-12-06 17:36:10 Test Item Value Reference Range Interpretation Comments NA (test code = 137 mmol/L 135-145 5648796561) K (test code = 4.2 mmol/L 3.5-5.0 0117345407) CL (test code = 104 mmol/L 98-108 2184061808) CO2 TOTAL (test code 25 mmol/L 23-31 = 4790380309) AGAP (test code = 2-16 8880935480) BUN (test code = 20 mg/dL 7-23 0279300664) GLUCOSE (test code = 104 mg/dL 70-110 5161315139) CREATININE (test code 0.58 mg/dL 0.50-1.04 = 3352221950) TOTAL BILI (test code 0.6 mg/dL 0.1-1.1 = 9754281736) CALCIUM (test code = 9.4 mg/dL 8.6-10.6 5960657590) T PROTEIN (test code 7.8 g/dL 6.3-8.2 = 7269227218) ALBUMIN (test code = 4.5 g/dL 3.5-5.0 9764060628) ALK PHOS (test code = 106 U/L 34-122 9595780137) ALTv (test code = 20 U/L 5-35 1742-6) AST(SGOT) (test code 28 U/L 13-40 = 3247095602) eGFR (test code = mL/min/1.73m2 6168618586) OSCAR (test code = OSCAR) Association of [...] or urine or abnormalities in imaging tests). [facility] 17:31:29 Test Item Value Reference Range Interpretation Comments LIPASE (test code = 4422558561) 51 U/L 0-220 Lab Interpretation (test code = Normal 26847-0) [facility] WITH [id number] 17:20:05 Test Item Value Reference Range Interpretation Comments WBC (test code = See_Comment [Automated 2481-2) message] The sy stem which generated this result transmitted reference range : 4.30 - 11.10 10*3/?L. The reference range was not used to interpret this result as normal/abnormal . RBC (test code = See_Comment [Automated 310-8) message] The sy stem which generated this [...] RDW-SD (test code = 43.8 fL 39.0-49.9 41662-4) RDW-CV (test code = 12.8 % 12.0-15.5 788-0) PLT (test code = See_Comment [Automated 777-3) message] The sy stem which generated this result transmitted reference range : 166 - 358 10*3/ ?L. The reference r chris was not used to interpret this result as normal/abnormal . MPV (test code = 10.6 fL 9.5-12.9 79434-5) NRBC/100 WBC (test See_Comment [Automat ed code = 9917284342) message] The system which generated this result transmitted reference range : 0.0 - 10.0 /100 WBCs. The refer ence range was not u sed to interpret th is result as normal/abnormal . NRBC x10^3 (test code <0.01 See_Comment [Auto mated = 6521482137) message] The s ystem which generated this result transmitted reference range : 10*3/?L. The reference range was not used to interpret this result as normal/abnormal . GRAN MAT (NEUT) % 76.7 % (test code = 770-8) IMM GRAN % (test code 0.30 % = 8425912034) LYMPH % (test code = 17.2 % 736-9) MONO % (test code = 2.6 % 5905-5) EOS % (test code = 2.8 % 713-8) BASO % (test code = 0.4 % 706-2) GRAN MAT x10^3(ANC) 6.96 10*3/uL 1.88-7.09 (test code = 9586191656) IMM GRAN x10^3 (test 0.03 10*3/uL 0.00-0.06 code = 0325403992) LYMPH x10^3 (test code 1.56 10*3/uL 1.32-3.29 = 731-0) MONO x10^3 (test code 0.24 10*3/uL 0.33-0.92 L = 742-7) EOS x10^3 (test code = 0.25 10*3/uL 0.03-0.39 711-2) BASO x10^3 (test code 0.04 10*3/uL 0.01-0.07 = 704-7) Lab Interpretation Abnormal (test code = 73877-4) [facility] RAPID STREP SCREEN FOR GROUP [id number] 07:52:00 Test Item Value Reference Range Interpretation Comments POCT GP A STREP (test code = negative Negative - Negative 60966-1) Lab Interpretation (test code = Normal 40354-3) [facility] WITH [id number] 05:43:00 Test Item Value Reference Range Interpretation Comments WBC (test code = See_Comment H [Automated 1890-2) message] The sy stem which generated this [...] RDW-SD (test code = 44.9 fL 39-49.9 56409-8) RDW-CV (test code = 12.9 % 12-15.5 788-0) PLT (test code = See_Comment [Automated 777-3) message] The sy stem which generated this result transmitted reference range : 166 - 358 10*3/ ?L. The reference r chris was not used to interpret this result as normal/abnormal . MPV (test code = 10.8 fL 9.5-12.9 06935-3) NRBC/100 WBC (test See_Comment [Automat ed code = 7971018321) message] The system which generated this result transmitted reference range : 0.0 - 10.0 /100 WBCs. The refer ence range was not u sed to interpret th is result as normal/abnormal . NRBC x10^3 (test code <0.01 See_Comment [Auto mated = 7154678758) message] The s ystem which generated this result transmitted reference range : 10*3/?L. The reference range was not used to interpret this result as normal/abnormal . GRAN MAT (NEUT) % 35.7 % (test code = 770-8) IMM GRAN % (test code 0.90 % = 8702710306) LYMPH % (test code = 41.4 % 736-9) MONO % (test code = 4.8 % 5905-5) EOS % (test code = 16.2 % 713-8) BASO % (test code = 1.0 % 706-2) GRAN MAT x10^3(ANC) 4.13 10*3/uL 1.88-7.09 (test code = 9401841356) IMM GRAN x10^3 (test 0.10 10*3/uL 0-0.06 H code = 3539612454) LYMPH x10^3 (test code 4.77 10*3/uL 1.32-3.29 H = 731-0) MONO x10^3 (test code 0.55 10*3/uL 0.33-0.92 = 742-7) EOS x10^3 (test code = 1.87 10*3/uL 0.03-0.39 H 711-2) BASO x10^3 (test code 0.11 10*3/uL 0.01-0.07 H = 704-7) Lab Interpretation Abnormal (test code = 07780-0) [facility] ([id number])2019-07-27 05:29:00 Test Item Value Reference Range Interpretation Comments NA (test code = 138 mmol/L 135-145 2625743211) K (test code = 4.2 mmol/L 3.5-5 6886200260) CL (test code = 106 mmol/L 98-108 2301465207) CO2 TOTAL (test code = 26 mmol/L 23-31 7357362747) AGAP (test code = 2-16 9379079013) BUN (test code = 24 mg/dL 7-23 H 6487057497) GLUCOSE (test code = 104 mg/dL 70-110 9430101124) CREATININE (test code = 0.82 mg/dL 0.5-1.04 1671176738) TOTAL BILI (test code = 0.1 mg/dL 0.1-1.5 0145637938) CALCIUM (test code = 9.4 mg/dL 8.6-10.6 7878940204) T PROTEIN (test code = 7.2 g/dL 6.3-8.2 9669514915) ALBUMIN (test code = 4.2 g/dL 3.5-5 0785975717) ALK PHOS (test code = 86 U/L 34-122 2746996117) ALTv (test code = 27 U/L 5-35 1742-6) AST(SGOT) (test code = 27 U/L 13-40 9018134189) eGFR Calculation mL/min/1.73m2 (Non-) (test code = 0573123514) eGFR Calculation mL/min/1.73m2 () (test code = 3285564345) OSCAR (test code = OSCAR) Association of [...] tests). Lab Interpretation Abnormal (test code = 83788-3) [facility]"
[2021-10-01 23:52] LABS: Hematocrit 40.5 % (36.0-45.0); Lymphocytes % 43.7 % (15.3-44.8); MCV 91.6 fL (80-100); MPV 8.5 fL (7.6-11.3); RBC Red Blood Cell Count 4.42 M/uL (3.86-4.86)
[2021-10-02 00:08] LABS: BUN Blood Urea Nitrogen 22 mg/dL (7-18); Bicarbonate 25 mmol/L (21-32); Glomerular Filtration Rate 105 ml/min (=/>90); Glucose Level 105 mg/dL (74-106); Magnesium 2.2 mg/dL (1.8-2.4); NT PRO-BNP 43 pg/mL (<125); Sodium Level 139 mmol/L (136-145)
[2021-10-02 00:26] LABS: Troponin High Sensitivity < 3.0 pg/mL (<58.9)
--- NOTE | 2021-10-02 02:05 | ER ---
Nurse's Notes [facility] Name: Mary Maharaj Age: 56 yrs Sex: Female : 1965 Arrival Date: 10/01/2021 Time: 21:17 Bed 18 Private MD: Diagnosis: Streptococcal pharyngitis;Pneumonia due to other specified infectious organisms Presentation: 10/01 21:52 Chief complaint: Patient states: Pt reports felling fatigue, generalized weakness, dry kb3 cough that is worse at night, and feeling like she is not breathing well x3 weeks. PCP gave her 7 days of prednisone, albuterol inhaler and Tessalon perrles with no relief. Coronavirus screen: Vaccine status: Patient reports receiving the 2nd dose of the covid vaccine. Client denies travel out of the [place] in the last 14 days. Ebola Screen: Patient negative for fever greater than or equal to 101.5 degrees Fahrenheit, and additional compatible Ebola Virus Disease symptoms Patient denies exposure to infectious person. Patient denies travel to an Ebola-affected area in the 21 days before illness onset. No symptoms or risks identified at this time. Initial Sepsis Screen: Does the patient meet any 2 criteria? No. Patient's initial sepsis screen is negative. Does the patient have a suspected source of infection? No. Patient's initial sepsis screen is negative. Risk Assessment: Do you want to hurt yourself or someone else? Patient reports no desire to harm self or others. Onset of symptoms was September 10, 2021. 21:52 Method Of Arrival: Ambulatory 3 21:52 Acuity: GRACIELA 3 kb3 Triage Assessment: 22:01 General: Appears in no apparent distress. Behavior is calm, cooperative. Pain: Denies kb3 pain. Respiratory: Reports shortness of breath cough that is pain with cough Onset: The symptoms/episode began/occurred 3 weeks ago, the patient has moderate shortness of breath. Historical: - Allergies: 22: No Known Allergies; kb3 - Home Meds: 22:01 None [Active]; kb3 - PMHx: 22:01 None; kb3 - Immunization history:: Adult Immunizations up to date, Client reports receiving the 2nd dose of the Covid vaccine, Last tetanus immunization: up to date. - Social history:: Smoking status: Patient reports the use of cigarette tobacco products, smokes one-half pack cigarettes per day. Screenin/23 00:51 Abuse screen: Denies threats or abuse. Nutritional screening: No deficits noted. ll3 Tuberculosis screening: No symptoms or risk factors identified. Fall Risk No fall in past 12 months (0 pts). No secondary diagnosis (0 pts). IV access (20 points). Ambulatory Aid- None/Bed Rest/Nurse Assist (0 pts). Gait- Normal/Bed Rest/Wheelchair (0 pts) Mental Status- Oriented to own ability (0 pts). Total Briggs Fall Scale indicates No Risk (0-24 pts). Assessment: 00:48 General: Appears in no apparent distress. uncomfortable, Behavior is calm, cooperative. ll3 Pain: Complains of pain in left aspect of posterior pharynx and right aspect of posterior pharynx. Cardiovascular: Rhythm is sinus bradycardia. Respiratory: Reports shortness of breath Airway is patent Respiratory effort is even, unlabored, Respiratory pattern is regular, symmetrical, Respiratory: Reports cough that is since 3 weeks. EENT: Reports pain when swallowing. Derm: Skin is pink, warm \T\ dry. 01:52 Reassessment: No changes from previously documented assessment. Patient and/or family ll3 updated on plan of care and expected duration. Pain level reassessed. Patient is alert, oriented x 3, equal unlabored respirations, skin warm/dry/pink. Vital Signs: 10/01 21:52 BP 144 / 71; Pulse 49; Resp 20; Temp 96.7; Pulse Ox 97% ; Weight 78.02 kg; Height 5 ft. kb3 3 in. (160.02 cm); Pain 0/10; 10/02 00:48 BP 144 / 79; Pulse 49; Resp 18; Pulse Ox 99% on R/A; ll3 01:52 BP 124 / 58; Pulse 49; Resp 17; Pulse Ox 97% on R/A; ll3 10/01 21:52 Body Mass Index 30.47 (78.02 kg, 160.02 cm) kb3 ED Course: 10/01 21:17 Patient arrived in ED. jj6 22:00 Triage completed. kb3 22:01 Arm band placed on right wrist. kb3 22:26 Adebayo Moncada PA is PHCP. cp 22:26 Adebayo Garcia MD is Attending Physician. cp 23:35 Chest Pa And Lat (2 Views) XRAY In Process Unspecified. EDMS 23:40 Inserted saline lock: 20 gauge in left antecubital area, using aseptic technique. Blood lp1 collected. 23:42 Jovita Turcios, RN is Primary Nurse. lp1 10/02 00:32 Strep Sent. ll3 00:51 Patient has correct armband on for positive identification. Bed in low position. Call ll3 light in reach. Side rails up X 1. Client placed on continuous cardiac and pulse oximetry monitoring. NIBP monitoring applied. 00:51 No provider procedures requiring assistance completed. ll3 02:38 IV discontinued, intact, bleeding controlled, No redness/swelling at site. Pressure ll3 dressing applied. Administered Medications: 02:15 Drug: Rocephin (cefTRIAXone) 1 grams Route: IV; Rate: calculated rate; Site: left ll3 antecubital; 02:39 Follow up: Response: No adverse reaction; IV Status: Completed infusion; IV Intake: 75rtav2 02:15 Drug: Zithromax (azithromycin) 500 mg Route: PO; ll3 02:39 Follow up: Response: No adverse reaction ll3 02:19 Drug: Albuterol 2.5 mg Route: Inhalation; ll3 02:39 Follow up: Response: No adverse reaction ll3 Medication: 02:38 VIS not applicable for this client. ll3 Intake: 02:39 IV: 10ml; Total: 10ml. ll3 Outcome: 02:05 Discharge ordered by MD. cp 02:38 Discharged to home ambulatory, with significant other. ll3 02:38 Condition: stable 02:38 Discharge instructions given to patient, significant other, Instructed on discharge instructions, follow up and referral plans. medication usage, Demonstrated understanding of instructions, follow-up care, medications, Prescriptions given X 5 02:39 Patient left the ED. ll3 Signatures: Dispatcher [employer] EDMS Jovita Turcios, RN RN lp1 Adebayo Moncada PA PA cp Nelda Moctezuma Lynsea, RN RN ll3 Mary Jennings, RN RN kb3 Corrections: (The following items were deleted from the chart) 10/01 22:01 22:01 Home Meds: amoxicillin 500 mg Oral cap 1 cap every 12 hours; kb3 kb3
--- NOTE | 2021-10-02 02:06 | EDPHYS ---
Physician Documentation [facility] Name: Mary Maharaj Age: 56 yrs Sex: Female : 1965 Arrival Date: 10/01/2021 Time: 21:17 Bed 18 Private MD: PONCHO Physician Adebayo Garcia HPI: 10/01 23:20 This 56 yrs old Female presents to ER via Ambulatory with complaints of cp Breathing Difficulty, Difficulty Swallowing. 23:20 The patient presents with sore throat. The patient describes throat pain as constant. cp Associated signs and symptoms: Pertinent positives: cough, shortness of breath Pertinent negatives diarrhea, dysphagia, fever, vomiting. Patient reports cough times 3 weeks. Prescribed oral steroids, inhaler and tessalon perles w/o relief. Historical: - Allergies: 22:01 No Known Allergies; kb3 - Home Meds: 22:01 None [Active]; kb3 - PMHx: 22:01 None; kb3 - Immunization history:: Adult Immunizations up to date, Client reports receiving the 2nd dose of the Covid vaccine, Last tetanus immunization: up to date. - Social history:: Smoking status: Patient reports the use of cigarette tobacco products, smokes one-half pack cigarettes per day. ROS: 23:25 Constitutional: Positive for fatigue, Negative for fever, poor PO intake. cp 23:25 Eyes: Negative for injury, pain, redness, and discharge. cp 23:25 ENT: Positive for sore throat, Negative for drainage from ear(s), ear pain, difficulty swallowing, difficulty handling secretions. 23:25 Cardiovascular: Negative for chest pain, edema, palpitations. 23:25 Respiratory: Positive for cough, shortness of breath, Negative for wheezing. 23:25 Abdomen/GI: Negative for abdominal pain, nausea, vomiting, and diarrhea. 23:25 Neuro: Negative for altered mental status, headache, weakness. 23:25 All other systems are negative. Exam: 23:30 Constitutional: The patient appears in no acute distress, alert, awake, cp non-diaphoretic, non-toxic, well developed, well nourished. 23:30 Head/Face: Normocephalic, atraumatic. cp 23:30 Eyes: Periorbital structures: appear normal, Conjunctiva: normal, no exudate, no injection, Sclera: no appreciated abnormality, Lids and lashes: appear normal, bilaterally. 23:30 ENT: External ear(s): are unremarkable, Nose: is normal, Mouth: Lips: moist, Oral mucosa: pink and intact, moist, Posterior pharynx: Airway: no evidence of obstruction, patent, Uvula: midline, erythema, that is mild, exudate, is not appreciated. 23:30 Neck: ROM/movement: is normal, is supple, without pain, no range of motions limitations, no meningismus. 23:30 Chest/axilla: Inspection: normal, Palpation: is normal, no crepitus, no tenderness. 23:30 Cardiovascular: Rate: bradycardic, Rhythm: regular, Edema: is not appreciated, JVD: is not appreciated. 23:30 Respiratory: the patient does not display signs of respiratory distress, Respirations: normal, no use of accessory muscles, no retractions, labored breathing, is not present, Breath sounds: decreased breath sounds, are not appreciated, stridor, is not appreciated, + upper airway congestion. wheezing: is not appreciated. 23:30 Abdomen/GI: Exam negative for discomfort, distension, guarding, Inspection: abdomen appears normal. 23:30 Back: pain, is absent, ROM is normal. 23:30 Neuro: Orientation: to person, place \\T\\ time. Mentation: is normal, Motor: moves all fours, strength is normal. 10/02 00:32 ECG was reviewed by the Attending Physician. cp Vital Signs: 10/01 21:52 BP 144 / 71; Pulse 49; Resp 20; Temp 96.7; Pulse Ox 97% ; Weight 78.02 kg; Height 5 ft. kb3 3 in. (160.02 cm); Pain 0/10; 10/02 00:48 BP 144 / 79; Pulse 49; Resp 18; Pulse Ox 99% on R/A; ll3 01:52 BP 124 / 58; Pulse 49; Resp 17; Pulse Ox 97% on R/A; ll3 10/01 21:52 Body Mass Index 30.47 (78.02 kg, 160.02 cm) kb3 MDM: 10/01 23:20 Patient medically screened. cp 10/02 00:00 Differential diagnosis: bronchitis, group A strep tonsillitis, influenza, cp mononucleosis, peritonsillar abscess pharyngitis, tonsillitis, upper respiratory infection, uvulitis. 02:05 Data reviewed: vital signs, nurses notes, lab test result(s), EKG, radiologic studies, cp plain films. 02:05 Test interpretation: by ED physician or midlevel provider: ECG, plain radiologic cp studies. Counseling: I had a detailed discussion with the patient and/or guardian regarding: the historical points, exam findings, and any diagnostic results supporting the discharge/admit diagnosis, lab results, radiology results, to return to the emergency department if symptoms worsen or persist or if there are any questions or concerns that arise at home. 10/01 22:15 Order name: COVID-19 SARS RT PCR (Document "Date of Onset" if Symptomatic); Complete kb Time: 00:10/01 23:16 Order name: Basic Metabolic Panel; Complete Time: 00:33 cp 10/02 01:28 Interpretation: Normal except: CL 109; BUN 22. cp 10/01 23:16 Order name: CBC with Diff; Complete Time: 00:08 cp 10/02 01:27 Interpretation: Normal except: FELI% 37.6; EOSINOPHIL % 13.9; EOSA 1.3. cp 10/01 23:16 Order name: Magnesium; Complete Time: 00: cp 10/01 23:16 Order name: NT PRO-BNP; Complete Time: 00: cp 10/01 23:16 Order name: PT-INR; Complete Time: 01:27 cp 10/01 22:15 Order name: Chest Pa And Lat (2 Views) XRAY kb 10/01 23:16 Order name: Troponin HS; Complete Time: 00:33 cp 10/02 00:01 Order name: [place] Screen Profile; Complete Time: 00:33 cp 10/02 00:01 Order name: Strep; Complete Time: 01:27 cp 10/02 01:27 Interpretation: Abnormal: GP A STREP SC GROUP A STREP SCREEN-- POSITIVE. 10/02 00:34 Order name: LAB Add On cp 10/02 00:59 Order name: D-Dimer; Complete Time: 01:27 EDMS 10/02 01:27 Interpretation: D-DIMER 346; Reviewed. 10/01 23:16 Order name: EKG; Complete Time: 23:17 cp 10/01 23:16 Order name: Cardiac monitoring; Complete Time: 00:32 cp 10/01 23:16 Order name: EKG - Nurse/Tech; Complete Time: 00:20 cp 10/01 23:16 Order name: IV Saline Lock; Complete Time: 00:20 cp 10/01 23:16 Order name: Labs collected and sent; Complete Time: 00:20 cp 10/01 23:16 Order name: O2 Per Protocol; Complete Time: 00:20 cp 10/01 23:16 Order name: O2 Sat Monitoring; Complete Time: 00:20 cp EC:32 Rate is 47 beats/min. Rhythm is regular. OK interval is normal. QRS interval is normal. cp QT interval is normal. T waves are Inverted in lead aVR. Interpreted by me. Reviewed by me. Administered Medications: 02:15 Drug: Rocephin (cefTRIAXone) 1 grams Route: IV; Rate: calculated rate; Site: left ll3 antecubital; 02:39 Follow up: Response: No adverse reaction; IV Status: Completed infusion; IV Intake: [id number] 02:15 Drug: Zithromax (azithromycin) 500 mg Route: PO; ll3 02:39 Follow up: Response: No adverse reaction ll3 02:19 Drug: Albuterol 2.5 mg Route: Inhalation; ll3 02:39 Follow up: Response: No adverse reaction ll3 Disposition Summary: 10/02/21 02:05 Discharge Ordered Location: Home cp Problem: new cp Symptoms: have improved cp Condition: Stable cp Diagnosis - Streptococcal pharyngitis cp - Pneumonia due to other specified infectious organisms cp Followup: cp - With: Private Physician - When: 2 - 3 days - Reason: Recheck today's complaints Discharge Instructions: - Discharge Summary Sheet cp - Community-Acquired Pneumonia, Adult cp - Strep Throat, Adult cp - How to Use a Nebulizer, Adult cp Forms: - Medication Reconciliation Form cp - Thank You Letter cp - Antibiotic Education cp - Prescription Opioid Use cp Prescriptions: - NEBULIZER - inhale 1 ampule by INHALATION route every 6 hours please add 2 sets of adult cp masks and tubing; 1 Device; Refills: 0, Product Selection Permitted - Bromfed DM 2-30-10 mg/5 mL Oral syrup - take 10 milliliter by ORAL route every 6 hours; 180 milliliter; Refills: 0, cp Product Selection Permitted - Augmentin 875-125 mg Oral Tablet - take 1 tablet by ORAL route every 12 hours for 10 days; 20 tablet; Refills: 0, cp Product Selection Permitted - Zithromax Z-Conrad 250 mg Oral Tablet - take 1 tablet by ORAL route as directed for 5 days Day 1 - take two (2) tablets cp one time. Day 2, 3, 4 , 5 take one (1) tablet once daily.; 6 tablet; Refills: 0, Product Selection Permitted - Albuterol Sulfate 2.5 mg /3 mL (0.083 %) Inhalation Solution for Nebulization - inhale 1 unit by NEBULIZATION route every 8 hours As needed; 1 box; Refills: 0, cp Product Selection Permitted Signatures: Dispatcher [employer] EDMS Adebayo Moncada PA PA cp Loubet, Lynsea RN RN ll3 Mary Jennings RN RN kb3 Corrections: (The following items were deleted from the chart) 10/01 22:01 22:01 Home Meds: amoxicillin 500 mg Oral cap 1 cap every 12 hours; kb3 kb3 10/02 00:59 00:34 D-DIMER+COAG.LAB.BRZ ordered. EDMS EDMS 01:28 00:08 Normal except: FELI% 37.6; EOSINOPHIL % 13.9. cp cp
[2021-10-02] MEDS ORDERED: CEFTRIAXONE 1000 MG/VIAL ONE (02:15)
[2021-10-02] MEDS ORDERED: AZITHROMYCIN 250 MG TAB ONE (02:15)
[2021-10-02] MEDS ORDERED: ALBUTEROL 2.5 MG/3 ML NEB SOL ONE (02:25)
[2021-10-02 05:29] VITALS: TEMP 96.7
[2021-10-02 05:34] VITALS: BP 124/58; O2SAT 97
--- NOTE | 2021-10-02 12:22 | RAD REPORT ---
EXAM DESCRIPTION: RAD - Chest Pa And Lat (2 Views) - 10/01/2021 11:33 pm CLINICAL HISTORY: 56 years Female Cough COMPARISON: None TECHNIQUE: 2 view study of the chest was performed. FINDINGS: Cardiac silhouette is enlarged. Central vessels are not increased. Peribronchial thickenin g hilar regions bilaterally. Mild infrahilar airspace opacities bilaterally. No effusions bilaterally. No pneumothorax. IMPRESSION: Enlarged heart with no evidence for congestive heart failure. Atelectatic change versus infiltrate infrahilar regions bilaterally. Electronically signed by: Gina Ayers MD 10/01/2021 11:48 PM CDT Due to temporary technical issues with the PACS/Fluency reporting system, reports are being signed by the in house radiologists without review as a courtesy to insure prompt reporting. The interpreting radiologist is fully responsible for the content of the report.
--- NOTE | 2021-10-02 13:49 | EKG ---
Test Date: 2021-10-02 Test Time: 00:23:08 Product/Industry Consultant: VALERIE MEASUREMENT RESULTS: Intervals: Rate: 47 [place]: 156 QRSD: 80 QT: 440 QTc: 389 [place]: P: [place]: 156 QRS: 41 T: 54 INTERPRETIVE STATEMENTS: Sinus bradycardia Nonspecific T wave abnormality Abnormal ECG Compared to ECG 07/26/2016 06:38:32 T-wave abnormality now present Sinus arrhythmia no longer present Electronically Signed On 10-02-21 13:47:56 CDT by Tunde Herrera
== END 2021-10-02 02:39 | disposition home or self-care (01) ==
LOC: ER 21:11
DX: J02.0 Streptococcal pharyngitis (principal); J16.8 Pneumonia due to other specified infectious organisms; Z20.822 Contact with and (suspected) exposure to COVID-19
CPT/HCPCS: 36415; 71046; 80048; 83735; 83880; 84484; 85025; 85379; 85610; 86308; 87081; 93005; 96365; 99285; U0003

== ENCOUNTER 2022-03-20 19:54 | Emergency (ER) | payer SELFPAY ==
[2022-03-20] MEDS ORDERED: ALBUTEROL 2.5 MG/3 ML NEB SOL ONE (20:26)
[2022-03-20] MEDS ORDERED: METHYLPREDNISOLONE 125 MG INJ ONE (20:26)
[2022-03-20] MEDS ORDERED: IPRATROPIUM BROM 0.5MG/2.5ML ONE (20:26)
--- NOTE | 2022-03-20 20:42 | RAD REPORT ---
EXAM DESCRIPTION: RAD - Chest Pa And Lat (2 Views) - 03/20/2022 8:34 pm CLINICAL HISTORY: Cough Chest pain. COMPARISON: Chest Pa And Lat (2 Views) dated 10/01/2021; Chest Single View dated 01/23/2021; Chest Si ngle View dated 07/25/2016; Chest Single View dated 07/02/2016 FINDINGS: The interstitial lung markings are mildly prominent, which may represent a viral infection . The heart is normal in size. No displaced fractures. Small hiatal hernia.
--- OUTSIDE RECORDS SUMMARY | 2022-03-20 21:10 | XMS REPORT | Continuity of Care Document ---
:1965 Author Organization [facility] t Address [address] [place] [address] Care Team Providers Name Role Phone PCP, [...] Quantity Comments Source Exposure to Not sure [facility] SARS-CoV-2 (event) Medica l Branch Alcohol intake 2019-07-27 2019-07-27 0 /d [facility] 00:00:00 00:00:00 [facility] Sex Assigned At [birth year] [facility] 00:00:00 00:00:00 Medical Branch Smoking Status Start Date Stop Date Source Never smoker [facility] Medications Ordered Filled Start Stop Current Ordering Indication Dosage Frequency Signature Comments Components Source Medication Medication Date Date Medication? Clinician (SIG) Name Name Dose 2-0 No Unknown 4-05 00:00: 00 Dose 2022-0 No Unknown 4-05 00:00: 00 Dose 2022-0 No Unknown 4-05 00:00: 00 Dose 2022-0 No Unknown 4-05 00:00: 00 Dose 2022-0 No Unknown 4-05 00:00: 00 Dose 2022-0 No Unknown 4-05 00:00: 00 Dose 2022-0 No Unknown 4-05 00:00: 00 Dose 2022-0 No Unknown 4-05 00:00: 00 Dose 2022-0 No Unknown 4-05 00:00: 00 Dose 2022-0 No Unknown 4-05 00:00: 00 ProAir HFA 2-0 No 12mcg/a 90 2-10 ctuatio mcg/actuati 00:00: n on aerosol 00 inhaler Advair 2-0 No 1mcg/do Diskus 250 2-10 se mcg-50 00:00: mcg/dose 00 powder for inhalation benzonatate 2-0 No 1mg 150 mg 2-10 capsule 00:00: 00 benzonatate 2-0 No 1mg 100 mg 2-10 capsule 00:00: 00 Bromfed DM 2-0 No 10mg/5 2 mg-30 2-10 mL mg-10 mg/5 00:00: mL oral 00 syrup ProAir HFA 2-0 No 12mcg/a 90 2-10 ctuatio mcg/actuati 00:00: n on aerosol 00 inhaler Advair 2-0 No 1mcg/do Diskus 250 2-10 se mcg-50 00:00: mcg/dose 00 powder for inhalation benzonatate 2-0 No 1mg 150 mg 2-10 capsule 00:00: 00 benzonatate 2-0 No 1mg 100 mg 2-10 capsule 00:00: 00 Bromfed DM 2022-0 No 10mg/5 2 mg-30 2-10 mL mg-10 mg/5 00:00: mL oral 00 syrup meclizine 1-1 No 1mg 12.5 mg 1-17 tablet 00:00: 00 amoxicillin 1-1 No 1mg 875 mg 1-17 tablet 00:00: 00 meclizine 2020-02 No 1mg 12.5 mg 1-17 tablet 00:00: 00 amoxicillin 2020-02 No 1mg 875 mg -17 tablet 00:00: 00 meclizine 2020-02 No 1mg 12.5 mg 02 tablet 00:00: 00 Zyrtec 10 2020-02 No 1mg mg tablet 02-11 00:00: 00 Zofran 4 mg 2020-02 No 1mg tablet 02-11 00:00: 00 meclizine 2020-02 No 1mg 12.5 mg 02 tablet 00:00: 00 Zyrtec 10 2020-02 No 1mg mg tablet 02-11 00:00: 00 Zofran 4 mg 2020-02 No 1mg tablet 02-11 00:00: 00 ondansetron 2020-02 No 4mg 4 mg, Slow Univers (ZOFRAN 012-06 IV Push, ity of (PF)) 18:30: 18:21 ONCE, 1 [place] injection 4 00 :00 dose, On Medi richie mg Fri12/06/20 at 1330, ERIC ketorolac 2020-02 No 30mg 30 mg, Unive rs (TORADOL) 012-06 Slow IV ity of injection 18:30: 18:21 Push, [place] 30 mg 00 :00 ONCE, 1 Medical dose, On Branch Fri12/06/20 at 1330, 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 Restricted medication : ISHAAN DENTON F NaCl 0.9% 2020-02 No 1000mL at 999 Uni vers (NS) bolus 012-06 mL/hr, ity of infusion 18:30: 19:57 1,000 mL, Nathan as 1,000 mL 00 :00 IV Medical Infusion, Branch ONCE, 1 dose, On Fri12/06/20 at 1330, ERIC benzonatate 2020-02 No 100mg 100 mg, U nivers (TESSALON 012-06 Oral, ity of PERLES) 18:15: 18:21 ONCE, 1 [place] capsule 100 00 :00 dose, On Medi richie mg Fri12/06/20 at 1315, Routine albuterol 2021-1 2021- No 6{puff} 6 Puff, U nivers (VENTOLIN) 0-27 10-27 Inhalation it y of inhaler 6 18:15: 18:21 [place] P[place] :[place] dose, On Medical Wed Branch 12/06/20 at 1315, [facility] meclizine 2020-02- No 25mg 25 mg, Unive rs (TRAVEL-EAS 0-27 10-27 Oral, ity of E 18:15: 18:21 ONCE, 1 [place] (MECLIZINE) 00 :00 dose, On Medi richie ) tablet 25 Wed Branch mg 12/06/20 at 1315, [facility] ondansetron 2020-02 Yes [id number] 4mg Take 1 Univers 4 mg tablet 0-27 tablet by ity of 00:00: mouth [place] 00 every 8 Medical (eight) Branch hours as needed for Nausea and Vomiting (N/V). benzonatate 2020-02 Yes [id number] 100mg Take 1 [facility] 100 mg 0-27 capsule by ity of capsule 00:00: mouth 3 [place] 00 (three) Medical times Branch daily as needed for Cough. Ciprodex 2020-02 No 4% 0.3 %-0.1 % 0-23 ear 00:00: drops,suspe 00 nsion Bromfed DM 2020-02 No 10mg/5 2 mg-30 0-23 mL mg-10 mg/5 00:00: mL oral 00 syrup Ciprodex 2020-02 No 4% 0.3 %-0.1 % 0-23 ear 00:00: drops,suspe 00 nsion Bromfed DM 2020-02 No 10mg/5 2 mg-30 0-23 mL mg-10 mg/5 00:00: mL oral 00 syrup ProAir HFA 2020-02 No 12mcg/a 90 0-01 ctuatio mcg/actuati 00:00: n on aerosol 00 inhaler Advair 2020-02 No 1mcg/do Diskus 250 0-01 se mcg-50 00:00: mcg/dose 00 powder for inhalation Singulair 2020-02 No 1mg 10 mg 0-01 tablet 00:00: 00 ProAir HFA 2020-02 No 12mcg/a 90 0-01 ctuatio mcg/actuati 00:00: n on aerosol 00 inhaler Advair 2020-1 No 1mcg/do Diskus 250 0-01 se mcg-50 00:00: mcg/dose 00 powder for inhalation Singulair 2020-1 No 1mg 10 mg 0-01 tablet 00:00: 00 amoxicillin 1-0 No 1mg 875 5-19 mg-potassiu 00:00: m 00 clavulanate 125 mg tablet prednisone 1-0 No mg 20 mg 5-19 tablet 00:00: 00 amoxicillin 2021-0 No 1mg 875 5-19 mg-potassiu 00:00: m 00 clavulanate 125 mg tablet prednisone 1-0 No mg 20 mg 5-19 tablet 00:00: 00 ProAir HFA 2020-0 No 12mcg/a 90 5-08 ctuatio mcg/actuati 00:00: n on aerosol 00 inhaler Advair 2020-0 No 1mcg/do Diskus 250 5-08 se mcg-50 00:00: mcg/dose 00 powder for inhalation Singulair 2020-0 No 1mg 10 mg 5-08 tablet 00:00: 00 ProAir HFA 1-0 No 12mcg/a 90 5-08 ctuatio mcg/actuati 00:00: n on aerosol 00 inhaler Advair 2020-0 No 1mcg/do Diskus 250 5-08 se mcg-50 00:00: mcg/dose 00 powder for inhalation Singulair 1-0 No 1mg 10 mg 5-08 tablet 00:00: 00 ProAir HFA 1-0 No 12mcg/a 90 2-10 ctuatio mcg/actuati 00:00: n on aerosol 00 inhaler ProAir HFA 2020-0 No 12mcg/a 90 2-10 ctuatio mcg/actuati 00:00: n on aerosol 00 inhaler Advair 2020-0 No 1mcg/do Diskus 250 2-10 se mcg-50 00:00: mcg/dose 00 powder for inhalation Singulair 1-0 No 1mg 10 mg 2-10 tablet 00:00: 00 Advair 1-0 No 1mcg/do Diskus 250 2-10 se mcg-50 00:00: mcg/dose 00 powder for inhalation Singulair 2020-0 No 1mg 10 mg 2-10 tablet 00:00: 00 Advair 2019- No 1mcg/do Diskus 250 2-29 se mcg-50 00:00: mcg/dose 00 powder for inhalation prednisone 2019-1 No 1mg 50 mg 2-29 tablet 00:00: 00 Advair 2019- No 1mcg/do Diskus 250 2-29 se mcg-50 00:00: mcg/dose 00 powder for inhalation prednisone 2019- No 1mg 50 mg 2-29 tablet 00:00: 00 ProAir HFA 2019- No 12mcg/a 90 1-19 ctuatio mcg/actuati 00:00: n on aerosol 00 inhaler Advair 2019- No 1mcg/do Diskus 250 1-19 se mcg-50 00:00: mcg/dose 00 powder for inhalation loratadine 2019- No 1mg 10 mg 1-19 tablet 00:00: 00 ProAir HFA 2019-1 No 12mcg/a 90 1-19 ctuatio mcg/actuati 00:00: n on aerosol 00 inhaler Advair 2019-02 No 1mcg/do Diskus 250 1-19 se mcg-50 00:00: mcg/dose 00 powder for inhalation loratadine 2019-1 No 1mg 10 mg 1-19 tablet 00:00: 00 ProAir HFA 2020-0 No 12mcg/a 90 9-25 ctuatio mcg/actuati 00:00: n on aerosol 00 inhaler loratadine 2019-0 No 1mg 10 mg 9-25 tablet 00:00: 00 ProAir HFA 2020-0 No 12mcg/a 90 9-25 ctuatio mcg/actuati 00:00: n on aerosol 00 inhaler loratadine 2020-0 No 1mg 10 mg 9-25 tablet 00:00: 00 ProAir HFA 2020-0 No 12mcg/a 90 8-12 ctuatio mcg/actuati 00:00: n on aerosol 00 inhaler loratadine 2020-0 No 1mg 10 mg 8-12 tablet 00:00: 00 ProAir HFA 2020-0 No 12mcg/a 90 8-12 ctuatio mcg/actuati 00:00: n on aerosol 00 inhaler loratadine 2019-0 No 1mg 10 mg 8-12 tablet 00:00: 00 azithromyci 2020-0 No mg n 250 mg 7-28 tablet 00:00: 00 prednisone 2020-0 No mg 20 mg 7-28 tablet 00:00: 00 benzonatate 2020-0 No 1mg 200 mg 7-28 capsule 00:00: 00 Bromfed DM 2020-0 No 5mg/5 2 mg-30 7-28 mL mg-10 mg/5 00:00: mL oral 00 syrup azithromyci 2020-0 No mg n 250 mg 7-28 tablet 00:00: 00 prednisone 2020-0 No mg 20 mg 7-28 tablet 00:00: 00 benzonatate 2020-0 No 1mg 200 mg 7-28 capsule 00:00: 00 Bromfed DM 2020-0 No 5mg/5 2 mg-30 7-28 mL mg-10 mg/5 00:00: mL oral 00 syrup ProAir HFA 2020-0 No 12mcg/a 90 7-10 ctuatio mcg/actuati 00:00: n on aerosol 00 inhaler ProAir HFA 2020-0 No 12mcg/a 90 7-10 ctuatio mcg/actuati 00:00: n on aerosol 00 inhaler dexamethaso 2019-0 2019- No 10mg 10 mg, IV [facility] [...] blood 2020-12-06 19:00:00 131 mm[Hg] Univer sity [facility] Diastolic blood 2020-12-06 19:00:00 72 mm[Hg] Unive rsity [facility] Heart rate 2020-12-06 19:00:00 51 /min [facility] Respiratory rate 2020-12-06 19:00:00 18 /min [facility] Oxygen saturation in 2020-12-06 19:00:00 98 /min [facility] Arterial blood by [facility] Pulse oximetry Branch Body temperature 2020-12-06 16:20:00 35.67 Zayra [facility] Body weight 2020-12-06 16:20:00 78.019 kg [facility] BMI 2020-12-06 16:20:00 31.46 kg/m2 [facility] Systolic blood 2019-07-27 07:58:00 135 mm[Hg] Univer sity [facility] Diastolic blood 2019-07-27 07:58:00 74 mm[Hg] Unive rsity [facility] Heart rate 2019-07-27 07:58:00 50 /min [facility] Respiratory rate 2019-07-27 07:58:00 20 /min [facility] Oxygen saturation in 2019-07-27 07:58:00 98 /min [facility] Arterial blood by [facility] Pulse oximetry Branch Body temperature 2019-07-27 02:43:00 37 Zayra [facility] Body weight 2019-07-27 02:43:00 74.798 kg [facility] BMI 2019-07-27 02:43:00 30.16 kg/m2 [facility] BP Systolic 2021-09-04 17:24:00 120 mm[Hg] BP Diastolic 2021-09-04 17:24:00 77 mm[Hg] Weight Measured 2021-09-04 17:24:00 180.80 pounds Height Measured 2021-09-04 17:24:00 61.00 inches Body Temperature 2021-09-04 17:24:00 98.30 degrees Heart Rate 2021-09-04 17:24:00 55.00 /min Respiratory Rate 2021-09-04 17:24:00 18.00 /min BP Systolic 2020-12-27 08:25:00 BP Diastolic 2020-12-27 08:25:00 Weight Measured 2020-12-27 08:25:00 172.20 pounds Height Measured 2020-12-27 08:25:00 61.00 inches Body Temperature 2020-12-27 08:25:00 98.20 degrees Heart Rate 2020-12-27 08:25:00 58.00 /min Respiratory Rate 2020-12-27 08:25:00 BP Systolic 2020-12-12 08:55:00 122 mm[Hg] BP Diastolic 2020-12-12 08:55:00 78 mm[Hg] Weight Measured 2020-12-12 08:55:00 169.20 pounds Height Measured 2020-12-12 08:55:00 61.00 inches Body Temperature 2020-12-12 08:55:00 98.20 degrees Heart Rate 2020-12-12 08:55:00 62.00 /min Respiratory Rate 2020-12-12 08:55:00 17.00 /min Respiratory Rate 2020-12-02 10:17:00 17.00 /min BP Systolic 2020-12-02 10:17:00 136 mm[Hg] BP Diastolic 2020-12-02 10:17:00 80 mm[Hg] Weight Measured 2020-12-02 10:17:00 171.60 pounds Height Measured 2020-12-02 10:17:00 61.00 inches Body Temperature 2020-12-02 10:17:00 98.40 degrees Heart Rate 2020-12-02 10:17:00 59.00 /min BP Systolic 2020-11-10 10:53:00 107 mm[Hg] BP Diastolic 2020-11-10 10:53:00 68 mm[Hg] Weight Measured 2020-11-10 10:53:00 173.80 pounds Height Measured 2020-11-10 10:53:00 61.00 inches Body Temperature 2020-11-10 10:53:00 98.10 degrees Heart Rate 2020-11-10 10:53:00 50.00 /min Respiratory Rate 2020-11-10 10:53:00 20.00 /min BP Systolic 2020-03-22 10:12:00 133 mm[Hg] BP Diastolic 2020-03-22 10:12:00 81 mm[Hg] Weight Measured 2020-03-22 10:12:00 178.20 pounds Height Measured 2020-03-22 10:12:00 61.00 inches Body Temperature 2020-03-22 10:12:00 98.00 degrees Heart Rate 2020-03-22 10:12:00 55.00 /min Respiratory Rate 2020-03-22 10:12:00 17.00 /min BP Systolic 2019-12-30 10:31:00 125 mm[Hg] BP Diastolic 2019-12-30 10:31:00 65 mm[Hg] Weight Measured 2019-12-30 10:31:00 175.60 pounds Height Measured 2019-12-30 10:31:00 61.00 inches Body Temperature 2019-12-30 10:31:00 98.50 degrees Heart Rate 2019-12-30 10:31:00 57.00 /min Respiratory Rate 2019-12-30 10:31:00 BP Systolic 2019-08-20 10:42:00 134 mm[Hg] BP Diastolic 2019-08-20 10:42:00 74 mm[Hg] Weight Measured 2019-08-20 10:42:00 177.80 pounds Height Measured 2019-08-20 10:42:00 61.00 inches Body Temperature 2019-08-20 10:42:00 Heart Rate 2019-08-20 10:42:00 98.00 /min Respiratory Rate 2019-08-20 10:42:00 16.00 /min Procedures Procedure Date / Time Performing Clinician Source Performed URINALYSIS 2020-12-06 19:05:00 [facility] XR CHEST 2 VW 2020-12-06 18:04:00 [facility] LIPASE 2020-12-06 17:03:00 [facility] TROPONIN I 2020-12-06 17:03:00 [facility] COMP. METABOLIC PANEL 2020-12-06 17:03:00 [facility] ([id number]) [facility] CBC WITH DIFF 2020-12-06 17:03:00 [facility] N-TERMINAL PRO-BNP 2020-12-06 17:03:00 Ishaan Denton [facility] COVID-19 (ID NOW RAPID 2020-12-06 16:56:00 Ishaan Denton [facility] TESTING) [facility] CONSENT/REFUSAL FOR 2020-12-06 16:21:12 Doctor [facility] DIAG[facility]IS AND TREATMENT Name Medical Branch POCT RAPID STREP SCREEN 2019-07-27 07:52:00 Romulo Plata [facility] FOR GROUP A Medical Branch COMP. METABOLIC PANEL 2019-07-27 04:54:00 Romulo Plata [facility] ([id number]) [facility] CBC WITH DIFFERENTIAL 2019-07-27 04:54:00 Romulo Plata [facility] Plan of Care Planned Activity Planned Date Details Comments Source Goal Plan of Care Note [code = 72026-7] Goal Plan of Care Note [code = 53427-8] Goal Plan of Care Note [code = 20958-9] Goal Plan of Care Note [code = 50745-7] Goal Plan of Care Note [code = 17790-3] Goal Plan of Care Note [code = 73530-4] Goal Plan of Care Note [code = 03717-8] Goal Plan of Care Note [code = 19226-1] Goal Plan of Care Note [code = 35256-2] Goal Plan of Care Note [code = 74843-6] Goal Plan of Care Note [code = 75552-3] Goal Plan of Care Note [code = 95846-6] Goal Plan of Care Note [code = 40660-8] Goal Plan of Care Note [code = 48007-8] Goal Plan of Care Note [code = 69319-3] Goal Plan of Care Note [code = 55049-7] Goal Plan of Care Note [code = 42094-3] Goal Plan of Care Note [code = 59429-2] Goal Plan of Care Note [code = 33904-7] Goal Plan of Care Note [code = 66796-0] Goal Plan of Care Note [code = 00741-9] Goal Plan of Care Note [code = 14582-4] Goal Plan of Care Note [code = 77610-6] Goal Plan of Care Note [code = 00885-1] Goal Plan of Care Note [code = 29893-2] Goal Plan of Care Note [code = 98925-4] Goal Plan of Care Note [code = 69100-5] Goal Plan of Care Note [code = 38364-6] Goal Plan of Care Note [code = 30039-0] Goal Plan of Care Note [code = 33433-9] Goal Plan of Care Note [code = 75110-6] Goal Plan of Care Note [code = 95217-6] Goal Plan of Care Note [code = 14542-7] Goal Plan of Care Note [code = 52865-1] Goal Plan of Care Note [code = 93813-7] Goal Plan of Care Note [code = 50174-2] Goal Plan of Care Note [code = 58405-4] Goal Plan of Care Note [code = 20614-1] Goal Plan of Care Note [code = 55501-1] Goal Plan of Care Note [code = 86364-7] Goal Plan of Care Note [code = 73206-7] Goal Plan of Care Note [code = 08509-6] Goal Plan of Care Note [code = 50988-7] Goal Plan of Care Note [code = 52402-5] Goal Plan of Care Note [code = 77624-7] Goal Plan of Care Note [code = 87394-7] Goal Plan of Care Note [code = 11753-0] Goal Plan of Care Note [code = 87070-0] Goal Plan of Care Note [code = 16753-0] Goal Plan of Care Note [code = 63667-7] Goal Plan of Care Note [code = 57668-6] Goal Plan of Care Note [code = 70086-6] Encounters Start End Encounter Admission Attending Care Care Encounter Source Date/Time Date/Time Type Type Clinicians Facility Department ID 2022-01-07 2022-01-07 Outpatient [facility] [id number] [place] 11:24:30 11:24:30 1128 F Sher 2021-09-20 2021-09-20 Outpatient [id number] 00:00:00 00:00:00 Visit [id number] 2021-09-04 2021-09-04 Outpatient [id number] 00:00:00 00:00:00 Visit [id number] 2020-12-06 2020-12-06 Emergency Ibikunle, TRAUMA [id number] [facility] 11:20:00 15:04:00 [facility] [id number] ity [id number] Rickey duncan [id number] [address] 2020-12-06 2020-12-06 Emergency X IBIKUNLE, SCMB ERT [id number] Univers 11:20:00 15:04:00 ISHAAN ity of [facility] 2019-07-29 2019-07-29 Telephone Unknown, UNIVERSIT [id number] Univers 00:00:00 00:00:00 Attending Y [id number] ity of NATIONAL 4.2.7.2.686 Nathan as BANK [phone] [facility] BLDG. 144 Branch 2019-07-26 2019-07-27 Emergency Unknown, Attending TRAUMA 1.2.8 [id number] Univers 21:50:51 03:04:00 Rip Moore [place] [id number] [place]y [place] [id number] [facility] 014 Branch 2019-07-26 2019-07-27 Emergency X [facility] ERT [id number] Univers 21:50:51 03:04:00 [facility] Results Test Description Test Time Test Comments Results Result Comments Source CBC W/AUTO DIFF 2020-12-13 00:00:00 Test Item Value Reference Range Interpretation Comme nts WBC (test code = 1001) 9.4 K/UL RBC (test code = 1002) 4.50 M/UL HEMOGLOBIN (test code = 1003) 13.8 G/DL HEMATOCRIT (test code = 1004) 40.5 % MCV (test code = 1005) 90.0 fL MCH (test code = 1006) 30.7 PG MCHC (test code = 1007) 34.1 G/DL RDW (test code = 1038) 12.4 % NEUTROPHILS (test code = 1008) 67.5 % LYMPHOCYTES (test code = 1010) 23.9 % MONOCYTES (test code = 1011) 3.2 % EOSINOPHILS (test code = 1012) 4.3 % BASOPHILS (test code = 1013) 0.7 % IMMATURE GRANULOCYTES (test code = 1036) 0.4 % NUCLEATED RBCS (test code = 1065) 0.0 /100WBC'S PLATELET COUNT (test code = 1015) 328 K/UL ABSOLUTE NEUTROPHILS (test code = 1066) 6.36 K/UL ABSOLUTE LYMPHOCYTES (test code = 1067) 2.26 K/UL ABSOLUTE MONOCYTES (test code = 1068) 0.30 K/UL ABSOLUTE EOSINOPHILS (test code = 1040) 0.41 K/UL ABSOLUTE BASOPHILS (test code = 1069) 0.07 K/UL ABS IMMATURE GRANULOCYTES (test code = 1020) 0.04 K/UL ABS NUCLEATED RBCS (test code = 49089) 0.00 K/UL CBC W/AUTO [id number] 00:00:00 Test Item Value Reference Range Interpretation Comments WBC (test code = 1001) 9.4 K/UL RBC (test code = 1002) 4.50 M/UL HEMOGLOBIN (test code = 1003) 13.8 G/DL HEMATOCRIT (test code = 1004) 40.5 % MCV (test code = 1005) 90.0 fL MCH (test code = 1006) 30.7 PG MCHC (test code = 1007) 34.1 G/DL RDW (test code = 1038) 12.4 % NEUTROPHILS (test code = 1008) 67.5 % LYMPHOCYTES (test code = 1010) 23.9 % MONOCYTES (test code = 1011) 3.2 % EOSINOPHILS (test code = 1012) 4.3 % BASOPHILS (test code = 1013) 0.7 % IMMATURE GRANULOCYTES (test 0.4 % code = 1036) NUCLEATED RBCS (test code = 0.0 /100WBC'S 1065) PLATELET COUNT (test code = 328 K/UL 1015) ABSOLUTE NEUTROPHILS (test code 6.36 K/UL = 1066) ABSOLUTE LYMPHOCYTES (test code 2.26 K/UL = 1067) ABSOLUTE MONOCYTES (test code = 0.30 K/UL 1068) ABSOLUTE EOSINOPHILS (test code 0.41 K/UL = 1040) ABSOLUTE BASOPHILS (test code = 0.07 K/UL 1069) ABS IMMATURE GRANULOCYTES (test 0.04 K/UL code = 1020) ABS NUCLEATED RBCS (test code = 0.00 K/UL 67511) CBC W/AUTO [id number] 00:00:00 Test Item Value Reference Range Interpretation Comments WBC (test code = 1001) 9.4 K/UL RBC (test code = 1002) 4.50 M/UL HEMOGLOBIN (test code = 1003) 13.8 G/DL HEMATOCRIT (test code = 1004) 40.5 % MCV (test code = 1005) 90.0 fL MCH (test code = 1006) 30.7 PG MCHC (test code = 1007) 34.1 G/DL RDW (test code = 1038) 12.4 % NEUTROPHILS (test code = 1008) 67.5 % LYMPHOCYTES (test code = 1010) 23.9 % MONOCYTES (test code = 1011) 3.2 % EOSINOPHILS (test code = 1012) 4.3 % BASOPHILS (test code = 1013) 0.7 % IMMATURE GRANULOCYTES (test 0.4 % code = 1036) NUCLEATED RBCS (test code = 0.0 /100WBC'S 1065) PLATELET COUNT (test code = 328 K/UL 1015) ABSOLUTE NEUTROPHILS (test code 6.36 K/UL = 1066) ABSOLUTE LYMPHOCYTES (test code 2.26 K/UL = 1067) ABSOLUTE MONOCYTES (test code = 0.30 K/UL 1068) ABSOLUTE EOSINOPHILS (test code 0.41 K/UL = 1040) ABSOLUTE BASOPHILS (test code = 0.07 K/UL 1069) ABS IMMATURE GRANULOCYTES (test 0.04 K/UL code = 1020) ABS NUCLEATED RBCS (test code = 0.00 K/UL 23610) COMPREHENSIVE METABOLIC [id number] 00:00:00 Test Item Value Reference Range Interpretation Comments GLUCOSE (test code = 2217) 121 MG/DL BUN (test code = 2208) 24 MG/DL CREATININE (test code = 2214) 0.62 MG/DL eGFR AMER. (test code 116 ML/MIN/1.73 = 56567) eGFR NON- AMER. (test 100 ML/MIN/1.73 code = 94251) CALC BUN/CREAT (test code = 39 RATIO 2235) SODIUM (test code = 2231) 142 MEQ/L POTASSIUM (test code = 2228) 4.3 MEQ/L CHLORIDE (test code = 2215) 104 MEQ/L CARBON DIOXIDE (test code = 26 MEQ/L 2206) CALCIUM (test code = 2209) 10.0 MG/DL PROTEIN, TOTAL (test code = 7.8 G/DL 2228) ALBUMIN (test code = 2201) 4.6 G/DL CALC GLOBULIN (test code = 3.2 G/DL 2240) CALC A/G RATIO (test code = 1.4 RATIO 2234) BILIRUBIN, TOTAL (test code = 0.5 MG/DL 220) ALKALINE PHOSPHATASE (test 117 U/L code = 2204) AST (test code = 2218) 19 U/L ALT (test code = 2219) 18 U/L COMPREHENSIVE METABOLIC [id number] 00:00:00 Test Item Value Reference Range Interpretation Comments GLUCOSE (test code = 2217) 121 MG/DL BUN (test code = 2208) 24 MG/DL CREATININE (test code = 2214) 0.62 MG/DL eGFR AMER. (test code 116 ML/MIN/1.73 = 74273) eGFR NON- AMER. (test 100 ML/MIN/1.73 code = 97676) CALC BUN/CREAT (test code = 39 RATIO 2235) SODIUM (test code = 2231) 142 MEQ/L POTASSIUM (test code = 2228) 4.3 MEQ/L CHLORIDE (test code = 2215) 104 MEQ/L CARBON DIOXIDE (test code = 26 MEQ/L 2205) CALCIUM (test code = 2209) 10.0 MG/DL PROTEIN, TOTAL (test code = 7.8 G/DL 2228) ALBUMIN (test code = 2201) 4.6 G/DL CALC GLOBULIN (test code = 3.2 G/DL 2239) CALC A/G RATIO (test code = 1.4 RATIO 2233) BILIRUBIN, TOTAL (test code = 0.5 MG/DL 2206) ALKALINE PHOSPHATASE (test 117 U/L code = 2204) AST (test code = 2218) 19 U/L ALT (test code = 2219) 18 U/L [id number] 00:00:00 Test Item Value Reference Range Interpretation Comments TSH, THIRD GENERATION (test code 1.160 UIU/ML = 2821) [id number] 00:00:00 Test Item Value Reference Range Interpretation Comments TSH, THIRD GENERATION (test code 1.160 UIU/ML = 2821) [id number] 00:00:00 Test Item Value Reference Range Interpretation Comments TSH, THIRD GENERATION (test code 1.160 UIU/ML = 2821) CBC W/AUTO [id number] 00:00:00 Test Item Value Reference Range Interpretation Comments WBC (test code = 1001) 9.4 K/UL RBC (test code = 1002) 4.50 M/UL HEMOGLOBIN (test code = 1003) 13.8 G/DL HEMATOCRIT (test code = 1004) 40.5 % MCV (test code = 1005) 90.0 fL MCH (test code = 1006) 30.7 PG MCHC (test code = 1007) 34.1 G/DL RDW (test code = 1038) 12.4 % NEUTROPHILS (test code = 1008) 67.5 % LYMPHOCYTES (test code = 1010) 23.9 % MONOCYTES (test code = 1011) 3.2 % EOSINOPHILS (test code = 1012) 4.3 % BASOPHILS (test code = 1013) 0.7 % IMMATURE GRANULOCYTES (test 0.4 % code = 1036) NUCLEATED RBCS (test code = 0.0 /100WBC'S 1065) PLATELET COUNT (test code = 328 K/UL 1015) ABSOLUTE NEUTROPHILS (test code 6.36 K/UL = 1066) ABSOLUTE LYMPHOCYTES (test code 2.26 K/UL = 1067) ABSOLUTE MONOCYTES (test code = 0.30 K/UL 1068) ABSOLUTE EOSINOPHILS (test code 0.41 K/UL = 1040) ABSOLUTE BASOPHILS (test code = 0.07 K/UL 1069) ABS IMMATURE GRANULOCYTES (test 0.04 K/UL code = 1020) ABS NUCLEATED RBCS (test code = 0.00 K/UL 58133) CBC W/AUTO [id number] 00:00:00 Test Item Value Reference Range Interpretation Comments WBC (test code = 1001) 9.4 K/UL RBC (test code = 1002) 4.50 M/UL HEMOGLOBIN (test code = 1003) 13.8 G/DL HEMATOCRIT (test code = 1004) 40.5 % MCV (test code = 1005) 90.0 fL MCH (test code = 1006) 30.7 PG MCHC (test code = 1007) 34.1 G/DL RDW (test code = 1038) 12.4 % NEUTROPHILS (test code = 1008) 67.5 % LYMPHOCYTES (test code = 1010) 23.9 % MONOCYTES (test code = 1011) 3.2 % EOSINOPHILS (test code = 1012) 4.3 % BASOPHILS (test code = 1013) 0.7 % IMMATURE GRANULOCYTES (test 0.4 % code = 1036) NUCLEATED RBCS (test code = 0.0 /100WBC'S 1065) PLATELET COUNT (test code = 328 K/UL 1015) ABSOLUTE NEUTROPHILS (test code 6.36 K/UL = 1066) ABSOLUTE LYMPHOCYTES (test code 2.26 K/UL = 1067) ABSOLUTE MONOCYTES (test code = 0.30 K/UL 1068) ABSOLUTE EOSINOPHILS (test code 0.41 K/UL = 1040) ABSOLUTE BASOPHILS (test code = 0.07 K/UL 1069) ABS IMMATURE GRANULOCYTES (test 0.04 K/UL code = 1020) ABS NUCLEATED RBCS (test code = 0.00 K/UL 85340) CBC W/AUTO [id number] 00:00:00 Test Item Value Reference Range Interpretation Comments WBC (test code = 1001) 9.4 K/UL RBC (test code = 1002) 4.50 M/UL HEMOGLOBIN (test code = 1003) 13.8 G/DL HEMATOCRIT (test code = 1004) 40.5 % MCV (test code = 1005) 90.0 fL MCH (test code = 1006) 30.7 PG MCHC (test code = 1007) 34.1 G/DL RDW (test code = 1038) 12.4 % NEUTROPHILS (test code = 1008) 67.5 % LYMPHOCYTES (test code = 1010) 23.9 % MONOCYTES (test code = 1011) 3.2 % EOSINOPHILS (test code = 1012) 4.3 % BASOPHILS (test code = 1013) 0.7 % IMMATURE GRANULOCYTES (test 0.4 % code = 1036) NUCLEATED RBCS (test code = 0.0 /100WBC'S 1065) PLATELET COUNT (test code = 328 K/UL 1015) ABSOLUTE NEUTROPHILS (test code 6.36 K/UL = 1066) ABSOLUTE LYMPHOCYTES (test code 2.26 K/UL = 1067) ABSOLUTE MONOCYTES (test code = 0.30 K/UL 1068) ABSOLUTE EOSINOPHILS (test code 0.41 K/UL = 1040) ABSOLUTE BASOPHILS (test code = 0.07 K/UL 1069) ABS IMMATURE GRANULOCYTES (test 0.04 K/UL code = 1020) ABS NUCLEATED RBCS (test code = 0.00 K/UL 17262) COMPREHENSIVE METABOLIC [id number] 00:00:00 Test Item Value Reference Range Interpretation Comments GLUCOSE (test code = 2217) 121 MG/DL BUN (test code = 2208) 24 MG/DL CREATININE (test code = 2214) 0.62 MG/DL eGFR AMER. (test code 116 ML/MIN/1.73 = 95452) eGFR NON- AMER. (test 100 ML/MIN/1.73 code = 84956) CALC BUN/CREAT (test code = 39 RATIO 2235) SODIUM (test code = 2231) 142 MEQ/L POTASSIUM (test code = 2228) 4.3 MEQ/L CHLORIDE (test code = 2215) 104 MEQ/L CARBON DIOXIDE (test code = 26 MEQ/L 2206) CALCIUM (test code = 2209) 10.0 MG/DL PROTEIN, TOTAL (test code = 7.8 G/DL 2228) ALBUMIN (test code = 2201) 4.6 G/DL CALC GLOBULIN (test code = 3.2 G/DL 2240) CALC A/G RATIO (test code = 1.4 RATIO 2234) BILIRUBIN, TOTAL (test code = 0.5 MG/DL 2206) ALKALINE PHOSPHATASE (test 117 U/L code = 2204) AST (test code = 2218) 19 U/L ALT (test code = 2219) 18 U/L COMPREHENSIVE METABOLIC [id number] 00:00:00 Test Item Value Reference Range Interpretation Comments GLUCOSE (test code = 2217) 121 MG/DL BUN (test code = 2208) 24 MG/DL CREATININE (test code = 2214) 0.62 MG/DL eGFR AMER. (test code 116 ML/MIN/1.73 = 78851) eGFR NON- AMER. (test 100 ML/MIN/1.73 code = 68246) CALC BUN/CREAT (test code = 39 RATIO 2235) SODIUM (test code = 2231) 142 MEQ/L POTASSIUM (test code = 2228) 4.3 MEQ/L CHLORIDE (test code = 2215) 104 MEQ/L CARBON DIOXIDE (test code = 26 MEQ/L 2205) CALCIUM (test code = 2209) 10.0 MG/DL PROTEIN, TOTAL (test code = 7.8 G/DL 2228) ALBUMIN (test code = 2201) 4.6 G/DL CALC GLOBULIN (test code = 3.2 G/DL 2240) CALC A/G RATIO (test code = 1.4 RATIO 2234) BILIRUBIN, TOTAL (test code = 0.5 MG/DL 2206) ALKALINE PHOSPHATASE (test 117 U/L code = 2204) AST (test code = 2218) 19 U/L ALT (test code = 2219) 18 U/L [id number] 00:00:00 Test Item Value Reference Range Interpretation Comments TSH, THIRD GENERATION (test code 1.160 UIU/ML = 2821) [id number] 00:00:00 Test Item Value Reference Range Interpretation Comments TSH, THIRD GENERATION (test code 1.160 UIU/ML = 2821) [id number] 00:00:00 Test Item Value Reference Range Interpretation Comments TSH, THIRD GENERATION (test code 1.160 UIU/ML = 2821) TROPONIN [id number] 17:51:29 Test Item Value Reference Interpretation Comments Range TROPONIN I (test 0.001 ng/mL See_Comment [Automated code = [id number]) message] The system which generated this result transmitted reference range : <=0.034. The reference range was not used to interpret this result as normal/abnormal . OSCAR (test code = Reference (Normal) OSCAR) Range (defined by the 99th percentile reference [...] biotin. Lab Interpretation Normal (test code = 87261-6) [id number] 17:51:29 Test Item Value Reference Range Interpretation Comments NT-proBNP (test code 61 pg/mL See_Comment [Autom ated = 0363947910) message] The system which generated this result transmitted reference range : <=125. The reference range was not used to interpret this result as normal/abnormal . OSCAR (test code = OSCAR) Biotin has been reported to cause a negative bias, interpret results relative to patient's use of biotin. Lab Interpretation Normal (test code = 01206-8) [facility] (73914[facility]2020-12-06 17:36:10 Test Item Value Reference Range Interpretation Comments NA (test code = 137 mmol/L 135-145 1952671653) K (test code = 4.2 mmol/L 3.5-5.0 7785796614) CL (test code = 104 mmol/L 98-108 0596215635) CO2 TOTAL (test code 25 mmol/L 23-31 = 3877770980) AGAP (test code = 2-16 8425230139) BUN (test code = 20 mg/dL 7-23 4637057985) GLUCOSE (test code = 104 mg/dL 70-110 1812600265) CREATININE (test code 0.58 mg/dL 0.50-1.04 = 7036482560) TOTAL BILI (test code 0.6 mg/dL 0.1-1.1 = 3734460608) CALCIUM (test code = 9.4 mg/dL 8.6-10.6 6732764825) T PROTEIN (test code 7.8 g/dL 6.3-8.2 = 5810076694) ALBUMIN (test code = 4.5 g/dL 3.5-5.0 0771802843) ALK PHOS (test code = 106 U/L 34-122 1460457972) ALTv (test code = 20 U/L 5-35 1742-6) AST(SGOT) (test code 28 U/L 13-40 = 7984378600) eGFR (test code = mL/min/1.73m2 3841964992) OSCAR (test code = OSCAR) Association of [...] or urine or abnormalities in imaging tests). [id number] 17:31:29 Test Item Value Reference Range Interpretation Comments LIPASE (test code = 0471286780) 51 U/L 0-220 Lab Interpretation (test code = Normal 93551-2) [facility] WITH [id number] 17:20:05 Test Item Value Reference Range Interpretation Comments WBC (test code = See_Comment [Automated 7190-2) message] The sy stem which generated this result transmitted reference range : 4.30 - 11.10 10*3/?L. The reference range was not used to interpret this result as normal/abnormal . RBC (test code = See_Comment [Automated 379-8) message] The sy stem which generated this [...] RDW-SD (test code = 43.8 fL 39.0-49.9 01086-2) RDW-CV (test code = 12.8 % 12.0-15.5 788-0) PLT (test code = See_Comment [Automated 827-3) message] The sy stem which generated this result transmitted reference range : 166 - 358 10*3/ ?L. The reference r chris was not used to interpret this result as normal/abnormal . MPV (test code = 10.6 fL 9.5-12.9 96151-5) NRBC/100 WBC (test See_Comment [Automat ed code = 2243916893) message] The system which generated this result transmitted reference range : 0.0 - 10.0 /100 WBCs. The refer ence range was not u sed to interpret th is result as normal/abnormal . NRBC x10^3 (test code <0.01 See_Comment [Auto mated = 6445117030) message] The s ystem which generated this result transmitted reference range : 10*3/?L. The reference range was not used to interpret this result as normal/abnormal . GRAN MAT (NEUT) % 76.7 % (test code = 770-8) IMM GRAN % (test code 0.30 % = 2087612324) LYMPH % (test code = 17.2 % 736-9) MONO % (test code = 2.6 % 5905-5) EOS % (test code = 2.8 % 713-8) BASO % (test code = 0.4 % 706-2) GRAN MAT x10^3(ANC) 6.96 10*3/uL 1.88-7.09 (test code = 0600748320) IMM GRAN x10^3 (test 0.03 10*3/uL 0.00-0.06 code = 8861792866) LYMPH x10^3 (test code 1.56 10*3/uL 1.32-3.29 = 731-0) MONO x10^3 (test code 0.24 10*3/uL 0.33-0.92 L = 742-7) EOS x10^3 (test code = 0.25 10*3/uL 0.03-0.39 711-2) BASO x10^3 (test code 0.04 10*3/uL 0.01-0.07 = 704-7) Lab Interpretation Abnormal (test code = 25645-4) [facility] (HIGH RISK) 2020-02-09 00:00:00 Test Item Value Reference Range Interpretation Comments SARS-CoV-2 INTERPRETATION (test NEGATIVE code = 97917) SOURCE (test code = 74222) NOT SPECIFIED SARS-CoV-2 (COVID-19) by RT-PCR (HIGH RISK)2020-02-09 00:00:00 Test Item Value Reference Range Interpretation Comments SARS-CoV-2 INTERPRETATION (test NEGATIVE code = 29556) SOURCE (test code = 66110) NOT SPECIFIED SARS-CoV-2 (COVID-19) by RT-PCR (HIGH RISK)2020-02-09 00:00:00 Test Item Value Reference Range Interpretation Comments SARS-CoV-2 INTERPRETATION (test NEGATIVE code = 93044) SOURCE (test code = 55162) NOT SPECIFIED SARS-CoV-2 (COVID-19) by RT-PCR (HIGH RISK)2020-02-09 00:00:00 Test Item Value Reference Range Interpretation Comments SARS-CoV-2 INTERPRETATION (test NEGATIVE code = 65626) SOURCE (test code = 11975) NOT SPECIFIED SARS-CoV-2 (COVID-19) by RT-PCR (HIGH RISK)2019-09-24 00:00:00 Test Item Value Reference Range Interpretation Comments SARS-CoV-2 INTERPRETATION (test NEGATIVE code = 06262) SOURCE (test code = 22928) NOT SPECIFIED SARS-CoV-2 (COVID-19) by RT-PCR (HIGH RISK)2019-09-24 00:00:00 Test Item Value Reference Range Interpretation Comments SARS-CoV-2 INTERPRETATION (test NEGATIVE code = 28849) SOURCE (test code = 62872) NOT SPECIFIED SARS-CoV-2 (COVID-19) by RT-PCR (HIGH RISK)2019-09-24 00:00:00 Test Item Value Reference Range Interpretation Comments SARS-CoV-2 INTERPRETATION (test NEGATIVE code = 91344) SOURCE (test code = 61231) NOT SPECIFIED SARS-CoV-2 (COVID-19) by RT-PCR (HIGH RISK)2019-09-24 00:00:00 Test Item Value Reference Range Interpretation Comments SARS-CoV-2 INTERPRETATION (test NEGATIVE code = 81203) SOURCE (test code = 14811) NOT SPECIFIED SARS-CoV-2 (COVID-19) by RT-PCR (HIGH RISK)2019-09-08 00:00:00 Test Item Value Reference Range Interpretation Comments SARS-CoV-2 INTERPRETATION (test NEGATIVE code = 88003) SOURCE (test code = 48537) NOT SPECIFIED SARS-CoV-2 (COVID-19) by RT-PCR (HIGH RISK)2019-09-08 00:00:00 Test Item Value Reference Range Interpretation Comments SARS-CoV-2 INTERPRETATION (test NEGATIVE code = 81906) SOURCE (test code = 26355) NOT SPECIFIED SARS-CoV-2 (COVID-19) by RT-PCR (HIGH RISK)2019-09-08 00:00:00 Test Item Value Reference Range Interpretation Comments SARS-CoV-2 INTERPRETATION (test NEGATIVE code = 21449) SOURCE (test code = 00750) NOT SPECIFIED SARS-CoV-2 (COVID-19) by RT-PCR (HIGH RISK)2019-09-08 00:00:00 Test Item Value Reference Range Interpretation Comments SARS-CoV-2 INTERPRETATION (test NEGATIVE code = 21960) SOURCE (test code = 95822) NOT SPECIFIED CBC W/AUTO [id number] 00:00:00 Test Item Value Reference Range Interpretation Comments WBC (test code = 1001) 8.2 K/UL RBC (test code = 1002) 4.31 M/UL HEMOGLOBIN (test code = 1003) 13.5 G/DL HEMATOCRIT (test code = 1004) 38.8 % MCV (test code = 1005) 90.0 fL MCH (test code = 1006) 31.3 PG MCHC (test code = 1007) 34.8 G/DL RDW (test code = 1038) 12.4 % NEUTROPHILS (test code = 1008) 48.6 % LYMPHOCYTES (test code = 1010) 33.4 % MONOCYTES (test code = 1011) 3.2 % EOSINOPHILS (test code = 1012) 13.8 % BASOPHILS (test code = 1013) 1.0 % PLATELET COUNT (test code = 1015) 275 K/UL CBC W/AUTO [id number] 00:00:00 Test Item Value Reference Range Interpretation Comments WBC (test code = 1001) 8.2 K/UL RBC (test code = 1002) 4.31 M/UL HEMOGLOBIN (test code = 1003) 13.5 G/DL HEMATOCRIT (test code = 1004) 38.8 % MCV (test code = 1005) 90.0 fL MCH (test code = 1006) 31.3 PG MCHC (test code = 1007) 34.8 G/DL RDW (test code = 1038) 12.4 % NEUTROPHILS (test code = 1008) 48.6 % LYMPHOCYTES (test code = 1010) 33.4 % MONOCYTES (test code = 1011) 3.2 % EOSINOPHILS (test code = 1012) 13.8 % BASOPHILS (test code = 1013) 1.0 % PLATELET COUNT (test code = 1015) 275 K/UL CBC W/AUTO [id number] 00:00:00 Test Item Value Reference Range Interpretation Comments WBC (test code = 1001) 8.2 K/UL RBC (test code = 1002) 4.31 M/UL HEMOGLOBIN (test code = 1003) 13.5 G/DL HEMATOCRIT (test code = 1004) 38.8 % MCV (test code = 1005) 90.0 fL MCH (test code = 1006) 31.3 PG MCHC (test code = 1007) 34.8 G/DL RDW (test code = 1038) 12.4 % NEUTROPHILS (test code = 1008) 48.6 % LYMPHOCYTES (test code = 1010) 33.4 % MONOCYTES (test code = 1011) 3.2 % EOSINOPHILS (test code = 1012) 13.8 % BASOPHILS (test code = 1013) 1.0 % PLATELET COUNT (test code = 1015) 275 K/UL COMPREHENSIVE METABOLIC [id number] 00:00:00 Test Item Value Reference Range Interpretation Comments GLUCOSE (test code = 2217) 115 MG/DL BUN (test code = 2208) 18 MG/DL CREATININE (test code = 2214) 0.74 MG/DL eGFR AMER. (test code 105 ML/MIN/1.73 = 94140) eGFR NON- AMER. (test 91 ML/MIN/1.73 code = 05718) CALC BUN/CREAT (test code = 24 RATIO 2235) SODIUM (test code = 2231) 139 MEQ/L POTASSIUM (test code = 2228) 4.4 MEQ/L CHLORIDE (test code = 2215) 103 MEQ/L CARBON DIOXIDE (test code = 25 MEQ/L 2205) CALCIUM (test code = 2209) 9.8 MG/DL PROTEIN, TOTAL (test code = 7.1 G/DL 2228) ALBUMIN (test code = 2201) 4.4 G/DL CALC GLOBULIN (test code = 2.7 G/DL 2240) CALC A/G RATIO (test code = 1.6 RATIO 2234) BILIRUBIN, TOTAL (test code = 0.3 MG/DL 2207) ALKALINE PHOSPHATASE (test 100 U/L code = 2204) AST (test code = 2218) 21 U/L ALT (test code = 2219) 25 U/L COMPREHENSIVE METABOLIC [id number] 00:00:00 Test Item Value Reference Range Interpretation Comments GLUCOSE (test code = 2217) 115 MG/DL BUN (test code = 2208) 18 MG/DL CREATININE (test code = 2214) 0.74 MG/DL eGFR AMER. (test code 105 ML/MIN/1.73 = 06140) eGFR NON- AMER. (test 91 ML/MIN/1.73 code = 14609) CALC BUN/CREAT (test code = 24 RATIO 2235) SODIUM (test code = 2231) 139 MEQ/L POTASSIUM (test code = 2228) 4.4 MEQ/L CHLORIDE (test code = 2215) 103 MEQ/L CARBON DIOXIDE (test code = 25 MEQ/L 6) CALCIUM (test code = 2209) 9.8 MG/DL PROTEIN, TOTAL (test code = 7.1 G/DL 2228) ALBUMIN (test code = 2201) 4.4 G/DL CALC GLOBULIN (test code = 2.7 G/DL 2240) CALC A/G RATIO (test code = 1.6 RATIO 2234) BILIRUBIN, TOTAL (test code = 0.3 MG/DL 2207) ALKALINE PHOSPHATASE (test 100 U/L code = 2204) AST (test code = 2218) 21 U/L ALT (test code = 2219) 25 U/L [id number] 00:00:00 Test Item Value Reference Range Interpretation Comments TSH, THIRD GENERATION (test code 1.880 UIU/ML = 2821) [id number] 00:00:00 Test Item Value Reference Range Interpretation Comments TSH, THIRD GENERATION (test code 1.880 UIU/ML = 2821) [id number] 00:00:00 Test Item Value Reference Range Interpretation Comments TSH, THIRD GENERATION (test code 1.880 UIU/ML = 2821) VITAMIN D, 25 [id number] 00:00:00 Test Item Value Reference Range Interpretation Comments VITAMIN D, 25 OH (test code = 4958) 22 NG/ML VITAMIN D, 25 [id number] 00:00:00 Test Item Value Reference Range Interpretation Comments VITAMIN D, 25 OH (test code = 4958) 22 NG/ML VITAMIN B 12 AND FOLIC [id number] 00:00:00 Test Item Value Reference Range Interpretation Comments VITAMIN B-12 (test code = 2840) 584 PG/ML FOLIC ACID (test code = 2695) 14.0 UG/L VITAMIN B 12 AND FOLIC [id number] 00:00:00 Test Item Value Reference Range Interpretation Comments VITAMIN B-12 (test code = 2840) 584 PG/ML FOLIC ACID (test code = 2695) 14.0 UG/L CBC W/AUTO [id number] 00:00:00 Test Item Value Reference Range Interpretation Comments WBC (test code = 1001) 8.2 K/UL RBC (test code = 1002) 4.31 M/UL HEMOGLOBIN (test code = 1003) 13.5 G/DL HEMATOCRIT (test code = 1004) 38.8 % MCV (test code = 1005) 90.0 fL MCH (test code = 1006) 31.3 PG MCHC (test code = 1007) 34.8 G/DL RDW (test code = 1038) 12.4 % NEUTROPHILS (test code = 1008) 48.6 % LYMPHOCYTES (test code = 1010) 33.4 % MONOCYTES (test code = 1011) 3.2 % EOSINOPHILS (test code = 1012) 13.8 % BASOPHILS (test code = 1013) 1.0 % PLATELET COUNT (test code = 1015) 275 K/UL CBC W/AUTO [id number] 00:00:00 Test Item Value Reference Range Interpretation Comments WBC (test code = 1001) 8.2 K/UL RBC (test code = 1002) 4.31 M/UL HEMOGLOBIN (test code = 1003) 13.5 G/DL HEMATOCRIT (test code = 1004) 38.8 % MCV (test code = 1005) 90.0 fL MCH (test code = 1006) 31.3 PG MCHC (test code = 1007) 34.8 G/DL RDW (test code = 1038) 12.4 % NEUTROPHILS (test code = 1008) 48.6 % LYMPHOCYTES (test code = 1010) 33.4 % MONOCYTES (test code = 1011) 3.2 % EOSINOPHILS (test code = 1012) 13.8 % BASOPHILS (test code = 1013) 1.0 % PLATELET COUNT (test code = 1015) 275 K/UL CBC W/AUTO [id number] 00:00:00 Test Item Value Reference Range Interpretation Comments WBC (test code = 1001) 8.2 K/UL RBC (test code = 1002) 4.31 M/UL HEMOGLOBIN (test code = 1003) 13.5 G/DL HEMATOCRIT (test code = 1004) 38.8 % MCV (test code = 1005) 90.0 fL MCH (test code = 1006) 31.3 PG MCHC (test code = 1007) 34.8 G/DL RDW (test code = 1038) 12.4 % NEUTROPHILS (test code = 1008) 48.6 % LYMPHOCYTES (test code = 1010) 33.4 % MONOCYTES (test code = 1011) 3.2 % EOSINOPHILS (test code = 1012) 13.8 % BASOPHILS (test code = 1013) 1.0 % PLATELET COUNT (test code = 1015) 275 K/UL COMPREHENSIVE METABOLIC [id number] 00:00:00 Test Item Value Reference Range Interpretation Comments GLUCOSE (test code = 2217) 115 MG/DL BUN (test code = 2208) 18 MG/DL CREATININE (test code = 2214) 0.74 MG/DL eGFR AMER. (test code 105 ML/MIN/1.73 = 13928) eGFR NON- AMER. (test 91 ML/MIN/1.73 code = 25825) CALC BUN/CREAT (test code = 24 RATIO 2235) SODIUM (test code = 2231) 139 MEQ/L POTASSIUM (test code = 2228) 4.4 MEQ/L CHLORIDE (test code = 2215) 103 MEQ/L CARBON DIOXIDE (test code = 25 MEQ/L 2205) CALCIUM (test code = 2209) 9.8 MG/DL PROTEIN, TOTAL (test code = 7.1 G/DL 2228) ALBUMIN (test code = 2201) 4.4 G/DL CALC GLOBULIN (test code = 2.7 G/DL 2239) CALC A/G RATIO (test code = 1.6 RATIO 2234) BILIRUBIN, TOTAL (test code = 0.3 MG/DL 2206) ALKALINE PHOSPHATASE (test 100 U/L code = 2204) AST (test code = 2218) 21 U/L ALT (test code = 2219) 25 U/L COMPREHENSIVE METABOLIC [id number] 00:00:00 Test Item Value Reference Range Interpretation Comments GLUCOSE (test code = 2217) 115 MG/DL BUN (test code = 2208) 18 MG/DL CREATININE (test code = 2214) 0.74 MG/DL eGFR AMER. (test code 105 ML/MIN/1.73 = 19771) eGFR NON- AMER. (test 91 ML/MIN/1.73 code = 50353) CALC BUN/CREAT (test code = 24 RATIO 2235) SODIUM (test code = 2231) 139 MEQ/L POTASSIUM (test code = 2228) 4.4 MEQ/L CHLORIDE (test code = 2215) 103 MEQ/L CARBON DIOXIDE (test code = 25 MEQ/L 2205) CALCIUM (test code = 2209) 9.8 MG/DL PROTEIN, TOTAL (test code = 7.1 G/DL 2228) ALBUMIN (test code = 2201) 4.4 G/DL CALC GLOBULIN (test code = 2.7 G/DL 2240) CALC A/G RATIO (test code = 1.6 RATIO 4) BILIRUBIN, TOTAL (test code = 0.3 MG/DL 2206) ALKALINE PHOSPHATASE (test 100 U/L code = 2204) AST (test code = 2218) 21 U/L ALT (test code = 2219) 25 U/L [id number] 00:00:00 Test Item Value Reference Range Interpretation Comments TSH, THIRD GENERATION (test code 1.880 UIU/ML = 2821) [id number] 00:00:00 Test Item Value Reference Range Interpretation Comments TSH, THIRD GENERATION (test code 1.880 UIU/ML = 2821) [id number] 00:00:00 Test Item Value Reference Range Interpretation Comments TSH, THIRD GENERATION (test code 1.880 UIU/ML = 2821) VITAMIN D, 25 [id number] 00:00:00 Test Item Value Reference Range Interpretation Comments VITAMIN D, 25 OH (test code = 4958) 22 NG/ML VITAMIN D, 25 [id number] 00:00:00 Test Item Value Reference Range Interpretation Comments VITAMIN D, 25 OH (test code = 4958) 22 NG/ML VITAMIN B 12 AND FOLIC [id number] 00:00:00 Test Item Value Reference Range Interpretation Comments VITAMIN B-12 (test code = 2840) 584 PG/ML FOLIC ACID (test code = 2695) 14.0 UG/L VITAMIN B 12 AND FOLIC [id number] 00:00:00 Test Item Value Reference Range Interpretation Comments VITAMIN B-12 (test code = 2840) 584 PG/ML FOLIC ACID (test code = 2695) 14.0 UG/L SARS-CoV-2 (COVID-19) by RT-PCR (HIGH RISK)2019-08-15 00:00:00 Test Item Value Reference Range Interpretation Comments SARS-CoV-2 INTERPRETATION (test NEGATIVE code = 74540) SOURCE (test code = 42629) NOT SPECIFIED SARS-CoV-2 (COVID-19) by RT-PCR (HIGH RISK)2019-08-15 00:00:00 Test Item Value Reference Range Interpretation Comments SARS-CoV-2 INTERPRETATION (test NEGATIVE code = 33052) SOURCE (test code = 67084) NOT SPECIFIED SARS-CoV-2 (COVID-19) by RT-PCR (HIGH RISK)2019-08-15 00:00:00 Test Item Value Reference Range Interpretation Comments SARS-CoV-2 INTERPRETATION (test NEGATIVE code = 34983) SOURCE (test code = 68076) NOT SPECIFIED SARS-CoV-2 (COVID-19) by RT-PCR (HIGH RISK)2019-08-15 00:00:00 Test Item Value Reference Range Interpretation Comments SARS-CoV-2 INTERPRETATION (test NEGATIVE code = 74953) SOURCE (test code = 05312) NOT SPECIFIED POCT RAPID STREP SCREEN FOR GROUP [id number] 07:52:00 Test Item Value Reference Range Interpretation Comments POCT GP A STREP (test code = negative Negative - Negative 09304-2) Lab Interpretation (test code = Normal 44969-9) [facility] WITH [id number] 05:43:00 Test Item Value Reference Range Interpretation Comments WBC (test code = See_Comment H [Automated 6690-2) message] The sy stem which generated this [...] RDW-SD (test code = 44.9 fL 39-49.9 30223-5) RDW-CV (test code = 12.9 % 12-15.5 788-0) PLT (test code = See_Comment [Automated 777-3) message] The sy stem which generated this result transmitted reference range : 166 - 358 10*3/ ?L. The reference r chris was not used to interpret this result as normal/abnormal . MPV (test code = 10.8 fL 9.5-12.9 37027-1) NRBC/100 WBC (test See_Comment [Automat ed code = 6488332317) message] The system which generated this result transmitted reference range : 0.0 - 10.0 /100 WBCs. The refer ence range was not u sed to interpret th is result as normal/abnormal . NRBC x10^3 (test code <0.01 See_Comment [Auto mated = 4429269104) message] The s ystem which generated this result transmitted reference range : 10*3/?L. The reference range was not used to interpret this result as normal/abnormal . GRAN MAT (NEUT) % 35.7 % (test code = 770-8) IMM GRAN % (test code 0.90 % = 8339009595) LYMPH % (test code = 41.4 % 736-9) MONO % (test code = 4.8 % 5905-5) EOS % (test code = 16.2 % 713-8) BASO % (test code = 1.0 % 706-2) GRAN MAT x10^3(ANC) 4.13 10*3/uL 1.88-7.09 (test code = 9928305530) IMM GRAN x10^3 (test 0.10 10*3/uL 0-0.06 H code = 4314937520) LYMPH x10^3 (test code 4.77 10*3/uL 1.32-3.29 H = 731-0) MONO x10^3 (test code 0.55 10*3/uL 0.33-0.92 = 742-7) EOS x10^3 (test code = 1.87 10*3/uL 0.03-0.39 H 711-2) BASO x10^3 (test code 0.11 10*3/uL 0.01-0.07 H = 704-7) Lab Interpretation Abnormal (test code = 30265-2) [id number] 05:29:00 Test Item Value Reference Range Interpretation Comments NA (test code = 138 mmol/L 135-145 3723436487) K (test code = 4.2 mmol/L 3.5-5 1307290347) CL (test code = 106 mmol/L 98-108 0303825646) CO2 TOTAL (test code = 26 mmol/L 23-31 6147913830) AGAP (test code = 2-16 0905929848) BUN (test code = 24 mg/dL 7-23 H 6798307781) GLUCOSE (test code = 104 mg/dL 70-110 8790358018) CREATININE (test code = 0.82 mg/dL 0.5-1.04 3592792709) TOTAL BILI (test code = 0.1 mg/dL 0.1-1.5 5871119957) CALCIUM (test code = 9.4 mg/dL 8.6-10.6 7212523467) T PROTEIN (test code = 7.2 g/dL 6.3-8.2 1412464172) ALBUMIN (test code = 4.2 g/dL 3.5-5 4120942052) ALK PHOS (test code = 86 U/L 34-122 9369813450) ALTv (test code = 27 U/L 5-35 1742-6) AST(SGOT) (test code = 27 U/L 13-40 0926092130) eGFR Calculation mL/min/1.73m2 (Non-) (test code = 0920370973) eGFR Calculation mL/min/1.73m2 () (test code = 3776994787) OSCAR (test code = OSCAR) Association of [...] tests). Lab Interpretation Abnormal (test code = 69459-1) [facility]"
[2022-03-20 21:17] LABS: SARS-COV-2 RT PCR NEGATIVE (NEGATIVE)
--- NOTE | 2022-03-20 21:48 | EDPHYS ---
Physician Documentation [facility] – [place], [place] Name: Mary Maharaj Age: 57 yrs Sex: Female : 1965 Arrival Date: 03/20/2022 Time: 20:00 Bed 19 Private MD: ED Physician Adebayo Garcia HPI: 03/20 23:29 This 57 yrs old Female presents to ER via Ambulatory with complaints of Cough, kb Congestion, Sore Throat. 23:29 The patient or guardian reports cough, difficulty breathing. The patient has not kb recently seen a physician. 23:29 Onset: The symptoms/episode began/occurred 3 day(s) ago. Severity of symptoms: At their kb worst the symptoms were mild, moderate, in the emergency department the symptoms are unchanged. Modifying factors: The symptoms are alleviated by nothing, the symptoms are aggravated by nothing. Associated signs and symptoms: Pertinent positives: rhinorrhea, Pertinent negatives: chest pain, diarrhea, ear ache, fever, nausea, sore throat, vomiting. The patient has not experienced similar symptoms in the past. Historical: - Allergies: 20:14 No Known Allergies; kr3 - PMHx: 20:14 Asthma; kr3 - PSHx: 20:14 None; kr3 - Immunization history:: Adult Immunizations not up to date. - Social history:: Smoking status: Smoking status: Patient reports the use of cigarette tobacco products, denies chronic smoking, but will smoke occasionally. ROS: 23:28 Constitutional: Negative for fever, chills, and weight loss. kb 23:28 ENT: Positive for rhinorrhea, sinus congestion. 23:28 Respiratory: Positive for cough, shortness of breath. 23:28 All other systems are negative. 23:28 Constitutional: Positive for fatigue. kb Exam: 23:29 Constitutional: This is a well developed, well nourished patient who is awake, alert, kb and in no acute distress. Head/Face: Normocephalic, atraumatic. ENT: Moist Mucous membranes Cardiovascular: Regular rate and rhythm with a normal S1 and S2. No gallops, murmurs, or rubs. No pulse deficits. Abdomen/GI: Soft, non-tender. No distention Skin: Warm, dry with normal turgor. Normal color. MS/ Extremity: Pulses equal, no cyanosis. Neurovascular intact. Full, normal range of motion. Neuro: Awake and alert, GCS 15, oriented to person, place, time, and situation. Moves all extremities. Normal gait. Psych: Awake, alert, with orientation to person, place and time. Behavior, mood, and affect are within normal limits. 23:29 Respiratory: the patient does not display signs of respiratory distress, Respirations: normal, Breath sounds: wheezing: expiratory that is mild, is heard diffusely. Vital Signs: 20:09 BP 144 / 77; Pulse 65; Resp 18; Temp 98.2; Pulse Ox 96% on R/A; Weight 78.02 kg; Height kr3 5 ft. 1 in. (154.94 cm); Pain 3/10; 20:09 Body Mass Index 32.50 (78.02 kg, 154.94 cm) kr3 MDM: 20:01 Patient medically screened. kb 23:28 Differential Diagnosis: Bronchitis Influenza Upper Respiratory Infection Asthma kb Exacerbation Pneumonia. Data reviewed: vital signs, nurses notes. Counseling: I had a detailed discussion with the patient and/or guardian regarding: the historical points, exam findings, and any diagnostic results supporting the discharge/admit diagnosis, lab results, radiology results, the need for outpatient follow up, a family practitioner, to return to the emergency department if symptoms worsen or persist or if there are any questions or concerns that arise at home. Response to treatment: the patient's symptoms have resolved after treatment. 03/20 20:11 Order name: COVID-19/FLU A+B; Complete Time: 21:24 kb 03/20 20:11 Order name: Chest Pa And Lat (2 Views) XRAY; Complete Time: 20:43 kb Administered Medications: 20:29 Drug: DuoNeb (albuterol 2.5 mg, ipratropium 0.5 mg) (3:1) (2.5 mg - 0.5 mg) 3 ml Route: aa9 Nebulizer; 20:29 Drug: SOLU-Medrol (methylPREDNISolone sodium succinate) 125 mg Route: IM; Site: right aa9 deltoid; Disposition Summary: 03/20/22 21:47 Discharge Ordered Location: [place] kb Condition: Stable kb Diagnosis - Unspecified asthma with (acute) exacerbation kb Followup: kb - With: Emergency Department - When: As needed - Reason: Worsening of condition Followup: kb - With: Private Physician - When: 2 - 3 days - Reason: Recheck today's complaints, Continuance of care, Re-evaluation by your physician Discharge Instructions: - Discharge Summary Sheet kb - Asthma, Adult, [id number] kb Forms: - Medication Reconciliation Form kb - Thank You Letter kb - Antibiotic Education kb - Prescription Opioid Use kb Prescriptions: - Prednisone 20 mg Oral Tablet - take 1 tablet by ORAL route once daily for 5 days; 5 tablet; Refills: 0, kb Product Selection Permitted Signatures: Dispatcher [employer] EDCA Leslie Villalobos, [employer] Melani Mcgrath, RN RN aa9 Clementina Portillo RN RN kr3
--- NOTE | 2022-03-20 21:48 | ER ---
Nurse's Notes [facility] [place] Name: Mary Maharaj Age: 57 yrs Sex: Female : 1965 Arrival Date: 03/20/2022 Time: 20:00 Bed 19 Private MD: Diagnosis: Unspecified asthma with (acute) exacerbation Presentation: 03/20 20:09 Chief complaint: Patient states: 3 days of cough, fatigue and SOB coughing up white kr3 flem. Coronavirus screen: Vaccine status:. Ebola Screen: Patient denies travel to an Ebola-affected area in the 21 days before illness onset. Initial Sepsis Screen: Does the patient meet any 2 criteria? No. Patient's initial sepsis screen is negative. Does the patient have a suspected source of infection? No. Patient's initial sepsis screen is negative. Risk Assessment: Do you want to hurt yourself or someone else? Patient reports no desire to harm self or others. Onset of symptoms was March 18, 2022. 20:09 Method Of Arrival: Ambulatory kr3 20:09 Acuity: GRACIELA 3 kr3 Triage Assessment: 20:16 General: Appears in no apparent distress. uncomfortable, Behavior is calm, cooperative, kr3 appropriate for age. Historical: - Allergies: 20:14 No Known Allergies; kr3 - PMHx: 20:14 Asthma; kr3 - PSHx: 20:14 None; kr3 - Immunization history:: Adult Immunizations not up to date. - Social history:: Smoking status: Smoking status: Patient reports the use of cigarette tobacco products, denies chronic smoking, but will smoke occasionally. Assessment: 20:32 General: Appears in no apparent distress. uncomfortable, Behavior is cooperative, aa9 anxious. General: pt states, "Lately I have been using my asthma inhaler more often, I feel like I can't breath throughout the day. I don't really have chest pain its more like shortness of breath.". Pain: Denies pain. Neuro: Level of Consciousness is awake, alert, obeys commands, Oriented to person, place, time, situation. Cardiovascular: Patient's skin is warm and dry. Respiratory: Reports shortness of breath on exertion cough that is non-productive, Airway is patent Respiratory effort is even, unlabored. Derm: Skin is intact, is healthy with good turgor. Vital Signs: 20:09 BP 144 / 77; Pulse 65; Resp 18; Temp 98.2; Pulse Ox 96% on R/A; Weight 78.02 kg; Height kr3 5 ft. 1 in. (154.94 cm); Pain 3/10; 20:09 Body Mass Index 32.50 (78.02 kg, 154.94 cm) kr3 ED Course: 20:00 Patient arrived in ED. jj6 20:01 Leslie Villalobos FNP-C [facility]. kb 20:01 Adebayo Garcia MD is Attending Physician. kb 20:14 Triage completed. kr3 20:16 Arm band placed on right wrist. Patient placed in an exam room, on a stretcher. kr3 20:35 Chest Pa And Lat (2 Views) XRAY In Process Unspecified. EDMS 20:41 Melani Roca, RN is Primary Nurse. aa9 Administered Medications: 20:29 Drug: DuoNeb (albuterol 2.5 mg, ipratropium 0.5 mg) (3:1) (2.5 mg - 0.5 mg) 3 ml Route: aa9 Nebulizer; 20:29 Drug: SOLU-Medrol (methylPREDNISolone sodium succinate) 125 mg Route: IM; Site: right aa9 deltoid; Outcome: 21:47 Discharge ordered by . kb 22:18 Patient left the ED. aa9 Signatures: Dispatcher [employer] EDNH Leslie Villalobos FNP-C FNP-Ckb Jeffries, Jennifer jj6 Melani Roca, RN NOBLE aa9 Clementina Portillo RN RN kr3
[2022-03-20 22:25] VITALS: BP 144/77; TEMP 98.2; O2SAT 96
== END 2022-03-20 22:18 | disposition home or self-care (01) ==
LOC: ER 19:54
DX: J45.901 Unspecified asthma with (acute) exacerbation (principal); F17.210 Nicotine dependence, cigarettes, uncomplicated; Z20.822 Contact with and (suspected) exposure to COVID-19
CPT/HCPCS: 0240U; 71046; J2930; J7613; J7644

== ENCOUNTER 2023-09-26 14:43 | Observation (INO) | payer SELFPAY ==
[2023-09-26 15:19] LABS: Absolute Basophils 0.1 K/uL (0-0.5); Absolute Eosinophils 1.4 K/uL (0-0.5); Absolute Lymphocytes (CBC) 4.1 K/uL (0.7-4.9); Absolute Monocytes 0.5 K/uL (0.1-1.3); Absolute Neutrophil 3.9 K/uL (1.8-8.0); Basophils % 0.9 % (0-1.3); Eosinophils % 13.8 % (0-4.4); Hemoglobin 13.2 g/dL (12.0-15.0); Lymphocytes % 41.1 % (15.3-44.8); MCH 31.7 pg (27.0-35.0); MCV 93.3 fL (80-100); MPV 8.5 fL (7.6-11.3); Neutrophils % 39.2 % (41.7-73.7); Nucleated Red Blood Cells % 0.1 % (0-0); Platelets 285 thou/uL (152-406); RBC Red Blood Cell Count 4.17 M/uL (3.86-4.86); Red Cell Distribution Width 13.7 % (12.1-15.2)
[2023-09-26 15:23] LABS: PT Prothrombin Time 11.9 SECONDS (9.4-12.5); PTT, Activated Partial Thromb 34.8 SECONDS (24.3-36.9); Protime INR 1.06
--- NOTE | 2023-09-26 15:24 | RAD REPORT ---
EXAM DESCRIPTION: CT - Ct Stroke Brain Wo Cont - 09/26/2023 3:03 pm CLINICAL HISTORY: STROKE ALERT COMPARISON: Head Brain Wo Cont dated 01/23/2021; Head Brain Wo Cont dated 12/17/2016; Head angio date d 09/26/2023; Neck Angio dated 09/26/2023 TECHNIQUE: Noncontrast head CT images were obtained without IV contrast. Multiplanar reformats were generated and reviewed. All CT scans are performed using dose optimization technique as appropriate and may include automated exposure control or mA/KV adjustment according to patient size. FINDINGS: No intracranial hemorrhage, mass, or edema. Midline structures are unremarkable. Normal ventricular caliber for age. Kee-white matter differentiation is preserved, without evidence of acute infarct. No abnormal extra- axial fluid collections. Mastoid air cells and visualized portions of the paranasal sinuses are clear. No acute bony findings. IMPRESSION: No evidence of an acute intracranial process. The findings were communicated to Jamison Ordonez on 09/26/2023 at 15:13 hours.
--- NOTE | 2023-09-26 15:38 | RAD REPORT ---
EXAM DESCRIPTION: CT - Neck Angio - 09/26/2023 3:03 pm CLINICAL HISTORY: facial droop COMPARISON: Head C Spine Mpr Wo Con dated 07/01/2016; Ct Stroke Brain Wo Cont dated 09/26/2023; Head a ngio dated 09/26/2023 TECHNIQUE: Axial CT angiography images of the neck was performed with multiplanar and maximum intens ity projection reconstructions. Images performed following intravenous administration of 100mL Isovue 370. All CT scans are performed using dose optimization technique as appropriate and may include automated exposure control or mA/KV adjustment according to patient size. Quantification of carotid stenosis, if any, is performed according to NASCET criteria. FINDINGS: A left aortic arch is identified with normal three vessel configuration of the great vesse ls. No significant flow abnormality is seen of the common carotid bilaterally. Mild atherosclerotic calc ific plaque formation at the left carotid bulb. No significant stenosis is identified involving the cervical segments of both internal carotid arteri es. Normal flow is seen within both vertebral arteries. IMPRESSION: No significant flow abnormality of the neck vessels is identified. CAROTID STENOSIS REFERENCE USING NASCET CRITERIA: % ICA stenosis = (1 - narrowest ICA diameter/diameter of distal cervical ICA) x 100. Mild - <50% stenosis. Moderate - 50-69% stenosis. Severe - 70-94% stenosis. Near occlusion - 95-99% stenosis. Occluded - 100% stenosis.
--- NOTE | 2023-09-26 15:41 | RAD REPORT ---
EXAM DESCRIPTION: CT - Head angio - 09/26/2023 3:03 pm CLINICAL HISTORY: code stroke Left facial droop COMPARISON: Ct Stroke Brain Wo Cont dated 09/26/2023; Head Brain Wo Cont dated 01/23/2021 TECHNIQUE: Axial CT angiography images of the head was performed with multiplanar and maximum intens ity projection reconstructions. Images performed following intravenous administration of 100mL Isovue 370. All CT scans are performed using dose optimization technique as appropriate and may include automated exposure control or mA/KV adjustment according to patient size. FINDINGS: No evidence of large vessel occlusion. No evidence of aneurysm or dissection flap is detec kike. No flow-limiting stenosis or vascular malformation identified. Antegrade flow is seen in the vertebral arteries. The vertebral arteries are codominant. The visualized dural venous sinuses are grossly patent. IMPRESSION: No evidence of large vessel occlusion or flow-limiting stenosis.
--- NOTE | 2023-09-26 15:50 | EDPHYS ---
Physician Documentation [facility] [place] Name: Mary Maharaj Age: 58 yrs Sex: Female : 1965 Arrival Date: 09/26/2023 Time: 14:43 Bed 15 Private MD: ED Physician Jamison Ordonez HPI: 09/25 14:53 This 58 yrs old Female presents to ER via Unassigned with complaints of Facial rn Droop, Headache. 14:53 The patient presents to the emergency department with a speech or higher order brain rn function problem, difficult walking, Facial droop. Patient reports began last night, not sure exactly when prior to bed felt head pressure, difficulty walking, right lower facial droop.. 14:57 Onset: The symptoms/episode began/occurred last night. Associated signs and symptoms: rn Pertinent positives: headache, Pertinent negatives: fever, seizure, syncope. Severity of symptoms: At their worst the symptoms were moderate in the emergency department the symptoms are unchanged. Current symptoms:. Historical: - Allergies: 15:11 No Known Allergies; hb - Home Meds: 15:11 None [Active]; hb - PMHx: 15:11 Asthma; hb - Immunization history:: Adult Immunizations up to date. - Infectious Disease History:: Denies. - Family history:: not pertinent. - Social history:: Smoking status: Patient denies any tobacco usage or history of. - Hospitalizations: : No recent hospitalization is reported. ROS: 14:57 Constitutional: Negative for fever, chills, and weight loss, Eyes: Negative for injury, rn pain, redness, and discharge, Neck: Negative for injury, pain, and swelling, Cardiovascular: Negative for chest pain, palpitations, and edema, Respiratory: Negative for shortness of breath, cough, wheezing, and pleuritic chest pain, Abdomen/GI: Negative for abdominal pain, nausea, vomiting, diarrhea, and constipation, Back: Negative for injury and pain, MS/Extremity: Negative for injury and deformity, Skin: Negative for injury, rash, and discoloration, Neuro: Positive for dizziness, trouble walking, right lower facial droop Exam: 14:57 Constitutional: This is a well developed, well nourished patient who is awake, alert, rn anxious and tearful Head/Face: Normocephalic, atraumatic. Cardiovascular: Regular rate and rhythm. No pulse deficits. Respiratory: No increased work of breathing, no retractions or nasal flaring. MS/ Extremity: Pulses equal, no cyanosis. Neuro: Awake and alert, GCS 15, oriented to person, place, time, and situation. Right lower facial droop present. Motor strength 5/5 in all extremities. Sensory grossly intact. 16:00 ECG was reviewed by the Attending Physician. rn Vital Signs: 15:08 BP 146 / 83; Pulse 54; Resp 16; Temp 97.3(TE); Pulse Ox 99% on R/A; Weight 76 kg (M); hb Height 5 ft. 1 in. ; Pain 0/10; 15:08 Body Mass Index 31.66 (76.00 kg, 154.94 cm) hb 15:08 Pain Scale: Adult hb MDM: 14:48 Patient medically screened. rn 15:14 ED course: CT head no acute findings per Dr. Chacko. rn 15:47 Data reviewed: vital signs, nurses notes, lab test result(s), EKG, radiologic studies, rn CT scan, and as a result, I will admit patient. Consideration of Admission/Observation Patient was admitted/placed on observation. Escalation of care including admission/observation considered. Counseling: I had a detailed discussion with the patient and/or guardian regarding the historical points, exam findings, and any diagnostic results supporting the discharge/admit diagnosis, lab results, radiology results, the need for further work-up and treatment in the hospital. Response to treatment: There is no appreciated change of the patient's symptoms at this time. ED course: CT head negative. CT angio head and neck without LVO. Patient does have upper and lower facial involvement but also left-sided arm and leg weakness as well. Will admit for stroke rule out.. 15:47 ED course: Patient is outside of TNK window, last known normal was last night.. rn 09/25 14:49 Order name: Basic Metabolic Panel; Complete Time: 17:18 rn 09/25 14:49 Order name: CBC with Diff; Complete Time: 15:42 rn 09/25 14:49 Order name: High Sensitivity Troponin; Complete Time: 17:18 rn 09/25 14:49 Order name: Protime (+inr); Complete Time: 15:42 rn 09/25 14:49 Order name: Ptt, Activated rn 09/25 15:15 Order name: CREATININE WHOLE BLOOD; Complete Time: 15:42 EDMS 09/25 14:49 Order name: CT Neck Angio; Complete Time: 15:42 rn 09/25 14:49 Order name: CT Stroke Brain w/o Contrast; Complete Time: 15:42 rn 09/25 14:49 Order name: Stroke CXR 1 View rn 09/25 14:55 Order name: Head angio; Complete Time: 15:42 EDMS 09/25 15:46 Order name: Brain Wo Cont MRI; Complete Time: 17:18 la1 09/25 14:49 Order name: Accucheck; Complete Time: 15:48 rn 09/25 14:49 Order name: Cardiac monitoring; Complete Time: 15:17 rn 09/25 14:49 Order name: EKG - Nurse/Tech; Complete Time: 15:48 rn 09/25 14:49 Order name: IV Saline Lock; Complete Time: 15:17 rn 09/25 14:49 Order name: Labs collected and sent; Complete Time: 15:17 rn 09/25 14:49 Order name: NPO; Complete Time: 15:18 rn 09/25 14:49 Order name: O2 Per Protocol; Complete Time: 15:17 rn 09/25 14:49 Order name: O2 Sat Monitoring; Complete Time: 15:18 rn 09/25 14:49 Order name: Stroke Swallow Screen; Complete Time: 15:18 rn EC:00 Rate is 55 beats/min. Rhythm is regular. QRS [place] is Normal. [place] interval is normal. QRS rn interval is normal. QT interval is normal. No Q waves. T waves are Normal. No ST changes noted. Clinical impression: Sinus bradycardia. Interpreted by me. Reviewed by me. Administered Medications: 15:45 Drug: foLIC Acid IVPB 1 mg IVPB once Route: IVPB; Site: right antecubital; rs5 15:50 Drug: Aspirin PO Chewable Tablet 324 mg PO once; 81 mg tablets x 4 Route: PO; rs5 Disposition Summary: 09/26/23 15:49 Hospitalization Ordered Notes: Hospitalization Status: Observation rn Provider: Pablito Ordonez rn Location: Telemetry/MedSurg (observation) rn Condition: Stable rn Problem: new rn Symptoms: are unchanged rn Bed/Room Type: Standard rn Room Assignment: 405(09/26/23 18:22) em1 Diagnosis - Weakness rn - Facial weakness rn - Ataxia, unspecified rn Forms: - Medication Reconciliation Form rn - SBAR form rn - Leadership Thank You Letter rn Signatures: Dispatcher [employer] EDMS Jamison Ordonez MD MD rn Martinez, Eric em1 Dawood Hatfield, BUFFER COPPER-C BUFFER COPPER-Cla1 Corinna Calderon, RN RN Reymundo Valderrama, RN RN rs5 Corrections: (The following items were deleted from the chart) 14:50 14:50 BASIC METABOLIC PANEL+C.LAB.BRZ ordered. EDMS EDMS 14:50 14:50 CBC+H.LAB.BRZ ordered. EDMS EDMS 14:50 14:50 Troponin High Sensitivity+C.LAB.BRZ ordered. EDMS EDMS 14:50 14:50 PROTIME (+INR)+COAG.LAB.BRZ ordered. EDMS EDMS 14:50 14:50 PTT, ACTIVATED+COAG.LAB.BRZ ordered. EDMS EDMS 14:50 14:50 Chest Single View+RAD.RAD.BRZ ordered. EDMS EDMS 18:22 15:49 rn em1
--- NOTE | 2023-09-26 15:50 | ER ---
Nurse's Notes [facility] Name: Mary Maharaj Age: 58 yrs Sex: Female : 1965 Arrival Date: 09/26/2023 Time: 14:43 Bed 15 Private MD: Diagnosis: Weakness;Facial weakness;Ataxia, unspecified Presentation: 09/25 14:45 Chief complaint: Unsteady gait, left sided facial droop, and blurred vision since last hb night, uncertain exact LKW. Coronavirus screen: At this time, the client does not indicate any symptoms associated with coronavirus-19. Ebola Screen: No symptoms or risks identified at this time. An acute neurological deficit is present. The charge nurse has been notified. Initial Sepsis Screen: Does the patient meet any 2 criteria? No. Patient's initial sepsis screen is negative. Does the patient have a suspected source of infection? No. Patient's initial sepsis screen is negative. Risk Assessment: Do you want to hurt yourself or someone else? Patient reports no desire to harm self or others. Onset of symptoms was September 25, 2023. 14:45 Method Of Arrival: Ambulatory hb 14:45 Acuity: GRACIELA 2 hb 15:08 Pre-hospital glucose is not applicable to this patient. hb Stroke Activation: Symptom onset > 6 hours Physician: ED Attending; Name: ; Notified At: ; Arrived At: Physician: Mid-Level Provider; Name: ; Notified At: ; Arrived At: Physician: [not used]; Name: ; Notified At: ; Arrived At: Physician: [not used]; Name: ; Notified At: ; Arrived At: Physician: [not used]; Name: ; Notified At: ; Arrived At: Historical: - Allergies: 15:11 No Known Allergies; hb - Home Meds: 15:11 None [Active]; hb - PMHx: 15:11 Asthma; hb - Immunization history:: Adult Immunizations up to date. - Infectious Disease History:: Denies. - Family history:: not pertinent. - Social history:: Smoking status: Patient denies any tobacco usage or history of. - Hospitalizations: : No recent hospitalization is reported. Assessment: 14:48 Reassessment: Dr. Ordonez to triage to examine patient. hb 14:50 Reassessment: CODE STROKE CALLED, PT TO CT VIA WHEELCHAIR WITH VIRAL RN. hb 15:13 Reassessment: Pt returned from CT. hb Vital Signs: 15:08 BP 146 / 83; Pulse 54; Resp 16; Temp 97.3(TE); Pulse Ox 99% on R/A; Weight 76 kg (M); hb Height 5 ft. 1 in. ; Pain 0/10; 15:08 Body Mass Index 31.66 (76.00 kg, 154.94 cm) hb 15:08 Pain Scale: Adult hb ED Course: 14:44 Patient arrived in ED. im 14:48 Jamison Ordonez MD is Attending Physician. rn 15:05 CT Neck Angio In Process Unspecified. EDMS 15:05 CT Stroke Brain w/o Contrast In Process Unspecified. EDMS 15:05 Head angio In Process Unspecified. EDMS 15:06 Inserted saline lock: 18 gauge in right antecubital area, using aseptic technique. hb Blood collected. Flushed with 10 mL NS. 15:06 Initial lab(s) drawn, by me, sent to lab. hb 15:11 Triage completed. hb 15:12 Arm band placed on. hb 15:18 Basic Metabolic Panel Sent. hb 15:18 CBC with Diff Sent. hb 15:18 High Sensitivity Troponin Sent. hb 15:18 Protime (+inr) Sent. hb 15:18 Ptt, Activated Sent. hb 15:24 Reymundo Valderrama, RN is Primary Nurse. rs5 15:48 Pablito Ordonez MD is Hospitalizing Provider. rn 16:20 Brain Wo Cont MRI In Process Unspecified. EDMS 18:13 Stroke CXR 1 View In Process Unspecified. EDMS Administered Medications: 15:45 Drug: foLIC Acid IVPB 1 mg IVPB once Route: IVPB; Site: right antecubital; rs5 15:50 Drug: Aspirin PO Chewable Tablet 324 mg PO once; 81 mg tablets x 4 Route: PO; rs5 Outcome: 15:49 Decision to Hospitalize by Provider. rn 19:24 Patient left the ED. pc2 Signatures: Dispatcher [employer] EDMS Jamison Ordonez MD MD rn Baxter, Heather RN RN hb Reymundo Valderrama, RN RN rs5 Nereida Ashley Pam, RN RN pc2
[2023-09-26 16:44] LABS: Anion Gap 7.1 mEq/L (5.0-15.0); Potassium 4.1 mEq/L (3.5-5.1); Troponin High Sensitivity 4.8 pg/mL (<58.9)
[2023-09-26] MEDS ORDERED: FOLIC ACID 5 MG/ML VIAL ONE (17:11)
[2023-09-26] MEDS ORDERED: ASPIRIN 81 MG CHEWABLE TABLET ONE (17:11)
--- NOTE | 2023-09-26 17:15 | RAD REPORT ---
EXAM DESCRIPTION: MRI - Brain Wo Cont - 09/26/2023 4:18 pm CLINICAL HISTORY: facial droop/box COMPARISON: Head CT and CT angiogram of the brain of the same day. TECHNIQUE: Multiplanar multisequence MRI of the brain performed without IV contrast. FINDINGS: No evidence of acute infarct or other diffusion signal abnormality. No evidence of acute intracranial hemorrhage or abnormal extra-axial fluid collections. Ventricular caliber within normal for age. Midline structures are unremarkable. No significant white matter signal abnormalities. No mass effect or midline shift. Major vascular flow voids are preserved. Mastoid air cells are well aerated. Left maxillary sinus mucous retention cyst. IMPRESSION: No acute intracranial process. No evidence of ventriculomegaly or mass effect.
--- NOTE | 2023-09-26 18:30 | P.HP ---
Certification for Inpatient Patient admitted to: Observation With expected LOS: <2 Midnights Patient will require the following post-hospital care: None Practitioner: I am a practitioner with admitting privileges, knowledge of patient current condition, hospital course, and medical plan of care. Services: Services provided to patient in accordance with Admission requirements found in Title 42 Section 412.3 of the Code of Federal Regulations Patient History Date of Service: 09/26/23 Reason for admission: Left sided weakness History of Present Illness: 58-year-old female with no significant past medical history presents emergency department chief complaint of left-sided facial weakness. She reports her symptoms started last night but became worse when she woke up in the morning. She also reports having a headache. Patient was outside window for TNK on evaluation CT head without contrast was negative acute findings CTA head and neck were negative for large vessel occlusion MRI of the brain without contrast was also able to be obtained and was negative for acute findings/CVA. Patient noted to have involvement of her upper and lower face on the left side but also with some questionable left upper extremity weakness when compared to right as well as ataxia of the left foot patient be admitted under observation for left- sided weakness/ataxia. Allergies No Known Allergies Allergy (Unverified 07/25/16 15:55) Home Medications: NK [No Home Meds] 07/25/16 - Past Medical/Surgical History Diabetic: No -: asthma -: right shoulder sx -: Psychosocial/ Personal History: Lives at home with family - Family History Father -: Hypertension Mother -: Lung disease (copd) - Social History Smoking Status: Never smoker Alcohol use: No CD- Drugs: No Caffeine use: No Place of Residence: Home Review of Systems 10-point ROS is otherwise unremarkable Neurological: Other (left facial weakness) Physical Examination - Physical Exam General: Alert, In no apparent distress HEENT: Atraumatic, PERRLA, Mucous membr. moist/pink, EOMI, Sclerae nonicteric Neck: Supple, 2+ carotid pulse no bruit, No LAD, Without JVD or thyroid abnormality Respiratory: Clear to auscultation bilaterally, Normal air movement Cardiovascular: Regular rate/rhythm, Normal S1 S2 Gastrointestinal: Normal bowel sounds, No tenderness Musculoskeletal: No tenderness Integumentary: No rashes Neurological: Normal speech, Normal tone, Normal affect, Other (NIH 4, left facial weakness upper and lower, left lower ext. 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 CT head without contrast negative for acute findings CTA head and neck negative for LVO MRI without contrast negative for CVA/acute findings With upper face involvement suspect Gtz's palsy although there was some questionable upper/lower extremity changes patient states her arms and legs feel normal although she seems slightly ataxic and left lower extremity Continue treatment for both CVA/Gtz's palsy including steroids, antivirals, aspirin, statin NIH 4 DVT PPX: Lovenox Code status: full Discharge Plan: Home Plan to discharge in: 24 Hours - Advance Directives Does patient have a Living Will: No Does patient have a Durable POA for Healthcare: No - Code Status/Comfort Care Code Status Assessed: Yes (Full code) Critical Care: No Time Spent Managing Pts Care (In Minutes): 55
--- NOTE | 2023-09-26 19:15 | RAD REPORT ---
EXAM DESCRIPTION: RADChest Single View09/26/2023 6:11 pm CLINICAL HISTORY: facial droop COMPARISON: Chest Pa And Lat (2 Views) dated 03/20/2022; Chest Pa And Lat (2 Views) dated 10/01/2021; C hest Single View dated 01/23/2021; Chest Single View dated 07/25/2016 TECHNIQUE: Portable AP view of the chest. FINDINGS: The lungs are clear. No pneumothorax or effusion. The cardiomediastinal contours are unre markable. IMPRESSION: No acute cardiopulmonary process.
[2023-09-26] MEDS ORDERED: ONDANSETRON 4 MG/2 ML VIAL IV PRN (20:04)
[2023-09-26] MEDS: NA CHLORIDE 0.9% 1,000 ML IV SCH (20:30)
[2023-09-26] MEDS: ATORVASTATIN 40 MG TAB PO SCH (20:35)
[2023-09-26] MEDS: ACYCLOVIR 400 MG TABLET PO SCH (20:35)
[2023-09-26] MEDS: ALBUTEROL 2.5 MG/3 ML NEB SOL NEB PRN (22:29)
[2023-09-26 23:08] VITALS: BMI 29.0
[2023-09-26 23:18] VITALS: O2SAT 100
[2023-09-27] MEDS: ACETAMINOPHEN 500 MG TAB PO PRN (07:28)
[2023-09-27 08:24] LABS: Absolute Basophils 0.1 K/uL (0-0.5); Absolute Eosinophils 1.3 K/uL (0-0.5); Absolute Lymphocytes (CBC) 2.6 K/uL (0.7-4.9); Absolute Monocytes 0.4 K/uL (0.1-1.3); Absolute Neutrophil 2.8 K/uL (1.8-8.0); Basophils % 0.9 % (0-1.3); Eosinophils % 18.5 % (0-4.4); Hematocrit 38.9 % (36.0-45.0); Hemoglobin 13.4 g/dL (12.0-15.0); Lymphocytes % 36.2 % (15.3-44.8); MCH 32.3 pg (27.0-35.0); MCHC 34.5 g/dL (32.0-36.0); MCV 93.6 fL (80-100); MPV 8.7 fL (7.6-11.3); Monocytes % 5.2 % (3.3-12.3); Neutrophils % 39.2 % (41.7-73.7); Nucleated Red Blood Cells % 0.1 % (0-0); Platelets 298 thou/uL (152-406); RBC Red Blood Cell Count 4.16 M/uL (3.86-4.86); Red Cell Distribution Width 13.7 % (12.1-15.2)
[2023-09-27] MEDS: ASPIRIN EC 81 MG TAB PO SCH (08:37)
[2023-09-27] MEDS: predniSONE 20 MG TAB PO SCH (08:38)
[2023-09-27 08:50] LABS: Anion Gap 4.9 mEq/L (5.0-15.0); Potassium 3.9 mEq/L (3.5-5.1); Thyroid Stimulating Hormone 2.49 uIU/mL (0.358-3.740)
[2023-09-27 12:09] VITALS: BP 118/59; TEMP 97.4
--- NOTE | 2023-09-27 15:00 | P.DS ---
Admission Date: 09/26/23 Discharge Date: 09/27/23 Disposition: ROUTINE DISCHARGE Discharge Condition: GOOD Reason for Admission: Left sided weakness Brief History of Present Illness: 58-year-old female with no significant past medical history presents emergency department chief complaint of left-sided facial weakness. She reports her symptoms started last night but became worse when she woke up in the morning. She also reports having a headache. Patient was outside window for TNK on evaluation CT head without contrast was negative acute findings CTA head and neck were negative for large vessel occlusion MRI of the brain without contrast was also able to be obtained and was negative for acute findings/CVA. Patient noted to have involvement of her upper and lower face on the left side but also with some questionable left upper extremity weakness when compared to right as well as ataxia of the left foot patient be admitted under observation for left- sided weakness/ataxia. Hospital Course: Assessment: Left-sided facial weakness suspected [place] palsy Ataxia Vital Signs/Physical Exam: Temp Pulse Resp BP Pulse Ox 97.4 F 52 12 118/59 L 96 09/27/23 12:00 09/27/23 12:00 09/27/23 12:00 09/27/23 12:00 09/27/23 12:00 General: Alert, In no apparent distress, Oriented x3 HEENT: Atraumatic, PERRLA, EOMI Neck: Supple, JVD not distended Respiratory: Clear to auscultation bilaterally, Normal air movement Cardiovascular: Regular rate/rhythm, Normal S1 S2 Gastrointestinal: Normal bowel sounds, No tenderness Musculoskeletal: No tenderness Integumentary: No rashes Neurological: Normal speech, Normal tone, Abnormal strength (Left upper and lower facial weakness), Abnormal sensation (left facial numbness) Laboratory Data at Discharge: WBC 7.20 thou/uL (4.3-10.9) 09/27/23 07:39 Hgb 13.4 g/dL (12.0-15.0) 09/27/23 07:39 Hct 38.9 % (36.0-45.0) 09/27/23 07:39 Plt Count 298 thou/uL (152-406) 09/27/23 07:39 PT 11.9 SECONDS (9.4-12.5) 09/26/23 15:06 INR 1.06 09/26/23 15:06 APTT 34.8 SECONDS (24.3-36.9) 09/26/23 15:06 Sodium 139 mEq/L (136-145) 09/27/23 07:39 Potassium 3.9 mEq/L (3.5-5.1) 09/27/23 07:39 BUN 16 mg/dL (7-18) 09/27/23 07:39 Creatinine 0.61 mg/dL (0.55-1.02) 09/27/23 07:39 Glucose 101 mg/dL (74-106) 09/27/23 07:39 Triglycerides 175 mg/dL (<150) H 09/27/23 07:39 Cholesterol 145 mg/dL (<200) 09/27/23 07:39 HDL Cholesterol 42 mg/dL (40-60) 09/27/23 07:39 Cholesterol/HDL Ratio 3.45 09/27/23 07:39 Home Medications: Fluticasone Propion/Salmeterol [Advair 250-50 Diskus] 1 each IH BID 09/26/23 Acyclovir Tab [Zovirax*] 400 mg PO TID 9 Days #27 tab 09/27/23 predniSONE [Prednisone*] 60 mg PO DAILY 6 Days #18 tab 09/27/23 New Medications: predniSONE [Prednisone*] 60 mg PO DAILY 6 Days #18 tab Acyclovir Tab [Zovirax*] 400 mg PO TID 9 Days #27 tab Physician Discharge Instructions: Patient was admitted to the hospital for left-sided facial weakness, numbness. On exam she also had some questionable left upper and lower extremity weakness although patient reports they feel normal to her. The following morning she still had left-sided facial weakness and numbness including the upper face suspicious for Gtz's palsy. Additionally she reported that some the numbness extended down the left neck into the left shoulder area. During her hospitalization she had a CT head without contrast which was negative for acute findings CTA head and neck which were negative for large vessel occlusion or other significant findings, MRI of the brain which is negative for stroke. 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 Given her other symptoms including the numbness of the left neck/shoulder and questionable left upper extremity weakness we also instructed her to take a daily aspirin and follow-up with neurologyDrSimeon Simms. Diet: Regular Activity: Ad radha Followup: Jean Carlos Simms MD [ASSOCIATE-ACTIVE - CAN ADMIT] - NONE,NONE [Primary Care Provider] - 1 Week Time spent managing pt's care (in minutes): 33
--- OUTSIDE RECORDS SUMMARY | 2023-09-29 08:43 | XMS REPORT | Continuity of Care Document ---
Author Name Unknown Address [address] [facility] [address]. [address] [place] [address] [facility] thconnect Address [address] [facility]. [address] [place] [address] Care Team Providers Care Telephone Operators Supervisor Name Role Phone PCP, PATIENT DOES NOT HAVE A Primary Care Physic emil Unavailable Ishaan Lai Attending Clinician [phone] ISHAAN DENTON Attending Clinician Unavaila theron Unknown, Attending Attending Clinician Unavailab Rip Perdomo Attending Clinician RIP MOORE Attending Clinician Unavailable ISHAAN DENTON Admitting Clinician UnavailROMULO Collins Admitting Clinician Unavailable Payers Payer Name Policy Type Policy Number Effective Date Expirati on Date Source Problems Condition Name Condition Details Condition Category Status Onset Date Resolution Date Last Treatment Date Treating Clinician Comments Source No known active problems No known active problems Disease [facility] Allergies, Adverse Reactions, Alerts Allergy Name Allergy Type Status Severity Reaction(s) Onset Date Inactive Date Treating Clinician Comments Source NO KNOWN ALLERGIE S Drug Class Active [facility] Social History Social Habit Start Date Stop Date Quantity Comments Source Exposure to SARS-CoV-2 (event) Not sure [facility] Alcohol intake 2019-07-27 00:00:00 2019-07-27 00:00:00 0 /d [facility] Sex Ass[birth year] At 1965 00:00:00 1965 00:00:00 [facility] Smoking Status Start Date Stop Date Source Never smoker [facility] Medications Ordered Medication Name Filled Medication Name Start Date Stop Date Current Medication? Ordering Clinician Indication Dosage Frequency Signature (SIG) Comments Components Source Dose Unknown 05-15 00:00: 00 No Dose Unknown 05-15 00:00: 00 No Dose Unknown 05-15 00:00: 00 No Dose Unknown 05-15 00:00: 00 No Dose Unknown 05-15 00:00: 00 No ProAir HFA 90 mcg/actuati on aerosol inhaler 03-22 00:00: 00 No 12mcg/a ctuatio n Advair Diskus 250 mcg-50 mcg/dose powder for inhalation 03-22 00:00: 00 No 1mcg/do se benzonatate 150 mg capsule 03-22 00:00: 00 No 1mg benzonatate 100 mg capsule 03-22 00:00: 00 No 1mg Bromfed DM 2 mg-30 mg-10 mg/5 mL oral syrup 03-22 00:00: 00 No 10mg/5 mL meclizine 12.5 mg tablet 2020-02 00:00: 00 No 1mg amoxicillin 875 mg tablet 2020-02 00:00: 00 No 1mg meclizine 12.5 mg tablet 2020-02 00:00: 00 No 1mg Zyrtec 10 mg tablet 2020-02 00:00: 00 No 1mg Zofran 4 mg tablet 2020-02 00:00: 00 No 1mg ondansetron (ZOFRAN (PF)) injection 4 mg 2020-02 18:30: 00 12-06 18:21 :00 No 4mg 4 mg, Slow IV Push, ONCE, 1 dose, On Fri12/06/20 at 1330, [facility] ketorolac (TORADOL) injection 30 mg 2020-02 18:30: 00 12-06 18:21 :00 No 30mg 30 mg, Slow IV Push, ONCE, 1 dose, On Fri12/06/20 at 1330, Routine
member of the legislative council approving Restricted medication : ISHAAN DENTON [facility] NaCl 0.9% (NS) bolus infusion 1,000 mL 2020-02 18:30: 00 12-06 19:57 :00 No 1000mL at 999 mL/hr, 1,000 mL, IV Infusion, ONCE, 1 dose, On Fri12/06/20 at 1330, [facility] benzonatate (TESSALON PERLES) capsule 100 mg 2020-02 18:15: 00 12-06 18:21 :00 No 100mg 100 mg, Oral, ONCE, 1 dose, On Fri12/06/20 at 1315, Routine [facility] albuterol (VENTOLIN) inhaler 6 Puff 2020-02 18:15: 00 12-06 18:21 :00 No 6{puff} 6 Puff, Inhalation , ONCE, 1 dose, On Fri12/06/20 at 1315, [facility] meclizine (TRAVEL-EAS E (MECLIZINE) ) tablet 25 mg 2020-02 18:15: 00 12-06 18:21 :00 No 25mg 25 mg, Oral, ONCE, 1 dose, On Fri12/06/20 at 1315, [facility] ondansetron 4 mg tablet 2020-02 00:00: 00 Yes [id number] 4mg Take 1 tablet by mouth every 8 (eight) hours as needed for Nausea and Vomiting (N/V). [facility] benzonatate 100 mg capsule 2020-02 00:00: 00 Yes [id number] 100mg Take 1 capsule by mouth 3 (three) times daily as needed for Cough. [facility] Ciprodex 0.3 %-0.1 % ear drops,suspe nsion 2020-02 00:00: 00 No 4% Bromfed DM 2 mg-30 mg-10 mg/5 mL oral syrup 2020-02 00:00: 00 No 10mg/5 mL ProAir HFA 90 mcg/actuati on aerosol inhaler 2020-02 0- 00:00: 00 No 12mcg/a ctuatio n Advair Diskus 250 mcg-50 mcg/dose powder for inhalation 2020-02 0- 00:00: 00 No 1mcg/do se Singulair 10 mg tablet 2020-02 0- 00:00: 00 No 1mg amoxicillin 875 mg-potassiu m clavulanate 125 mg tablet 0 5-19 00:00: 00 No 1mg prednisone 20 mg tablet 0 5- 00:00: 00 No mg ProAir HFA 90 mcg/actuati on aerosol inhaler 5- 00:00: 00 No 12mcg/a ctuatio n Advair Diskus 250 mcg-50 mcg/dose powder for inhalation 5- 00:00: 00 No 1mcg/do se Singulair 10 mg tablet 5-08 00:00: 00 No 1mg ProAir HFA 90 mcg/actuati on aerosol inhaler 2-10 00:00: 00 No 12mcg/a ctuatio n Advair Diskus 250 mcg-50 mcg/dose powder for inhalation 2-10 00:00: 00 No 1mcg/do se Singulair 10 mg tablet 2-10 00:00: 00 No 1mg Advair Diskus 250 mcg-50 mcg/dose powder for inhalation 2019-02 2- 00:00: 00 No 1mcg/do se prednisone 50 mg tablet 2019-02- 00:00: 00 No 1mg ProAir HFA 90 mcg/actuati on aerosol inhaler 2019-02- 00:00: 00 No 12mcg/a ctuatio n Advair Diskus 250 mcg-50 mcg/dose powder for inhalation 2019-02- 00:00: 00 No 1mcg/do se loratadine 10 mg tablet 2019-02- 00:00: 00 No 1mg ProAir HFA 90 mcg/actuati on aerosol inhaler 11-04 00:00: 00 No 12mcg/a ctuatio n loratadine 10 mg tablet 11-04 00:00: 00 No 1mg ProAir HFA 90 mcg/actuati on aerosol inhaler 09-21 00:00: 00 No 12mcg/a ctuatio n loratadine 10 mg tablet 09-21 00:00: 00 No 1mg azithromyci n 250 mg tablet 09-06 00:00: 00 No mg prednisone 20 mg tablet 09-06 00:00: 00 No mg benzonatate 200 mg capsule 09-06 00:00: 00 No 1mg Bromfed DM 2 mg-30 mg-10 mg/5 mL oral syrup 09-06 00:00: 00 No 5mg/5 mL ProAir HFA 90 mcg/actuati on aerosol inhaler 08-19 00:00: 00 No 12mcg/a ctuatio n dexamethaso ne (DECADRON PHOSPHATE) injection 10 mg 07-26 08:45: 00 07-26 07:56 :00 No 10mg 10 mg, IV Push, ONCE, 1 dose, 07/27/19 at 0345, STAT [facility] iohexol (OMNIPAQUE 350 BULK-100 mL) injection 80 mL 07-26 06:45: 00 07-26 06:43 :00 No 80mL 80 mL, Intravenou s, ONCE, 1 dose, 07/27/19 at 0145, Routine [facility] ibuprofen (MOTRIN) 800 mg tablet 06-27 22:03: 15 Yes 800mg Take 800 mg by mouth every 6 (six) hours as needed. [facility] ibuprofen (MOTRIN) 800 mg tablet 06-27 17:03: 15 Yes 800mg Take 800 mg by mouth every 6 (six) hours as needed. [facility] diclofenac (VOLTAREN) 75 mg EC tablet 06-27 00:00: 00 Yes 75mg Take 1 tablet by mouth 2 (two) times daily with meals. [facility] Vital Signs Vital Name Observation Time Observation Value Comments S ource Systolic blood pressure 2020-12-06 19:00:00 131 mm[Hg] [facility] Diastolic blood pressure 2020-12-06 19:00:00 72 mm[Hg] [facility] Heart rate 2020-12-06 19:00:00 51 /[facility] Respiratory rate 2020-12-06 19:00:00 18 /min [facility] Oxygen saturation in Arterial blood by Pulse oximetry 2020-12-06 19:00:00 98 /min [facility] Body temperature 2020-12-06 16:20:00 35.67 Zayra [facility] Body weight 2020-12-06 16:20:00 78.019 [facility] BMI 2020-12-06 16:20:00 31.46 kg/m2 [facility] Systolic blood pressure 2019-07-27 07:58:00 135 mm[Hg] [facility] Diastolic blood pressure 2019-07-27 07:58:00 74 mm[Hg] [facility] Heart rate 2019-07-27 07:58:00 50 /min [facility] Respiratory rate 2019-07-27 07:58:00 20 /min [facility] Oxygen saturation in Arterial blood by Pulse oximetry 2019-07-27 07:58:00 98 /min [facility] Body temperature 2019-07-27 02:43:00 37 Zayra [facility] Body weight 2019-07-27 02:43:00 74.798 kg [facility] BMI 2019-07-27 02:43:00 30.16 kg/m2 [facility] BP Systolic 2021-09-04 17:24:00 120 mm[Hg] BP [...] 16.00 /min Procedures Procedure Date / Time Performed Performing Clinician Source URINALYSIS 2020-12-06 19:05:[address] [facility] XR CHEST 2 VW 2020-12-06 18:04:00 Ishaan Denton [facility] LIPASE 2020-12-06 17:03:[address] [facility] TROPONIN I 2020-12-06 17:03:[address] [facility] COMP. METABOLIC PANEL ([id number]) 2020-12-06 17:03:00 Ishaan Denton [facility] CBC WITH DIFF 2020-12-06 17:03:00 Ishaan Denton [facility] N-TERMINAL PRO-BNP 2020-12-06 17:03:00 Em Denton [facility] COVID-19 (ID NOW RAPID TESTING) 2020-12-06 16:56:00 Ishaan Denton [facility] CONSENT/REFUSAL FOR DIAGNOSIS AND TREATMENT 2020-12-06 16:21:12 Doctor Unassigned, [place] [facility] POCT RAPID STREP SCREEN FOR GROUP A 2019-07-27 07:52:00 Romulo Plata [facility] COMP. METABOLIC PANEL ([id number]) 2019-07-27 04:54:00 Romulo Plata [facility] CBC WITH DIFFERENTIAL 2019-07-27 04:54:00 Romulo Plata [facility] Plan of Care Planned Activity Planned Date Details Comments Source Goal Plan of Care Note [code = 57412-8] Goal Plan of Care Note [code = 84506-3] Goal Plan of Care Note [code = 12745-9] Goal Plan of Care Note [code = 87444-5] Goal Plan of Care Note [code = 99243-0] Goal Plan of Care Note [code = 74705-6] Goal Plan of Care Note [code = 03915-3] Goal Plan of Care Note [code = 33826-6] Goal Plan of Care Note [code = 23149-7] Goal Plan of Care Note [code = 56012-1] Goal Plan of Care Note [code = 89504-2] Goal Plan of Care Note [code = 89991-0] Goal Plan of Care Note [code = 43224-8] Goal Plan of Care Note [code = 88407-4] Goal Plan of Care Note [code = 54253-6] Goal Plan of Care Note [code = 89479-8] Goal Plan of Care Note [code = 47660-6] Goal Plan of Care Note [code = 35199-1] Goal Plan of Care Note [code = 06141-9] Goal Plan of Care Note [code = 51749-7] Goal Plan of Care Note [code = 50096-0] Goal Plan of Care Note [code = 46849-4] Goal Plan of Care Note [code = 66814-2] Goal Plan of Care Note [code = 28753-3] Goal Plan of Care Note [code = 47058-4] Goal Plan of Care Note [code = 53006-1] Goal Plan of Care Note [code = 28966-0] Goal Plan of Care Note [code = 71087-2] Goal Plan of Care Note [code = 25246-1] Goal Plan of Care Note [code = 57813-9] Goal Plan of Care Note [code = 47327-9] Goal Plan of Care Note [code = 69551-6] Goal Plan of Care Note [code = 83507-3] Goal Plan of Care Note [code = 07630-3] Goal Plan of Care Note [code = 46730-2] Goal Plan of Care Note [code = 54619-8] Goal Plan of Care Note [code = 29419-7] Goal Plan of Care Note [code = 12804-7] Goal Plan of Care Note [code = 44694-5] Goal Plan of Care Note [code = 45482-4] Goal Plan of Care Note [code = 91918-4] Goal Plan of Care Note [code = 16105-4] Goal Plan of Care Note [code = 78553-0] Goal Plan of Care Note [code = 49592-9] Goal Plan of Care Note [code = 30421-0] Goal Plan of Care Note [code = 37067-2] Goal Plan of Care Note [code = 74827-9] Goal Plan of Care Note [code = 69171-2] Goal Plan of Care Note [code = 64273-8] Goal Plan of Care Note [code = 45802-6] Goal Plan of Care Note [code = 12053-3] Goal Plan of Care Note [code = 73759-2] Encounters Start Date/Time End Date/Time Encounter Type Admission Type Attending Clinicians Care Facility Care Department Encounter ID Source 2023-02-25 14:39:39 2023-02-25 14:39:39 Outpatient [facility] [id number] Milan Olivarez 2023-02-06 09:03:59 2023-02-06 09:03:59 Outpatient [facility] [id number] Milan Olivarez 2022-10-17 10:50:10 2022-10-17 10:50:10 Outpatient [facility] [id number] Milan Olivarez 2022-06-10 17:13:20 2022-06-10 17:13:20 Outpatient [facility] [id number] Milan Olivarez 2022-04-02 09:44:54 2022-04-02 09:44:54 Outpatient [facility] [id number] Milan Olivarez 2022-01-07 11:24:30 2022-01-07 11:24:30 Outpatient [facility] [id number] Milan Olivarez 2021-09-20 00:00:00 2021-09-20 00:00:00 Outpatient Visit [id number] 2021-09-04 00:00:00 2021-09-04 00:00:00 Outpatient Visit [id number] 2020-12-06 11:20:00 2020-12-06 15:04:00 Emergency Jeb [facility] [id number] [facility] 2020-12-06 11:20:00 2020-12-06 15:04:00 Emergency X DWAYNEYAHAIRA MCGARRYWILFREDO [facility] [[email or web address]] ERT [id number] [facility] 2019-07-29 00:00:00 2019-07-29 00:00:00 Telephone Unknown, Attending tuul BLDG. ..[id number] [facility] 2019-07-26 21:50:51 2019-07-27 03:04:00 Emergency Unknown, Attending Rip Moore [facility] [id number] [facility] 2019-07-26 21:50:51 2019-07-27 03:04:00 Emergency X RIP MOORE [facility] [[email or web address]] ERT [id number] [facility] Results Test Description Test Time Test Comments Results Result Co mments Source CBC W/AUTO [id number] 00:00:00* Test Item Value Reference Range Interpretation Comme [...] = 1015) 328 K/UL ABSOLUTE NEUTROPHILS (test c ode = 1066) 6.36 K/UL ABSOLUTE LYMPHOCYTES (test c ode = 1067) 2.26 K/UL ABSOLUTE MONOCYTES (test cod e = 1068) 0.30 K/UL ABSOLUTE EOSINOPHILS (test c ode = 1040) 0.41 K/UL ABSOLUTE BASOPHILS (test cod e = 1069) 0.07 K/UL ABS IMMATURE GRANULOCYTES (t est code = 1020) 0.04 K/UL ABS NUCLEATED RBCS (test cod e = 59085) 0.00 K/UL CBC W/AUTO [id number] 00:00:00* Test Item Value Reference Range Interpretation Comme [...] = 1015) 328 K/UL ABSOLUTE NEUTROPHILS (test c ode = 1066) 6.36 K/UL ABSOLUTE LYMPHOCYTES (test c ode = 1067) 2.26 K/UL ABSOLUTE MONOCYTES (test cod e = 1068) 0.30 K/UL ABSOLUTE EOSINOPHILS (test c ode = 1040) 0.41 K/UL ABSOLUTE BASOPHILS (test cod e = 1069) 0.07 K/UL ABS IMMATURE GRANULOCYTES (t est code = 1020) 0.04 K/UL ABS NUCLEATED RBCS (test cod e = 29558) 0.00 K/UL COMPREHENSIVE METABOLIC [id number] 00:00:00* Test Item Value Reference Range Interpretation Comme nts GLUCOSE (test code = 2217) 121 MG/DL BUN (test code = 2208) 24 MG/DL CREATININE (test code = 2214) 0.62 MG/DL eGFR AMER. (test cod e = 10287) 116 ML/MIN/1.73 eGFR NON- AMER. (test code = 56007) 100 ML/MIN/1.73 CALC BUN/CREAT (test code = 2235) 39 RATIO SODIUM (test code = 2231) 142 MEQ/L POTASSIUM (test code = 2228) 4.3 MEQ/L CHLORIDE (test code = 2215) 104 MEQ/L CARBON DIOXIDE (test code = 2206) 26 MEQ/L CALCIUM (test code = 2209) 10.0 MG/DL PROTEIN, TOTAL (test code = 2229) 7.8 G/DL ALBUMIN (test code = 2201) 4.6 G/DL CALC GLOBULIN (test code = 2240) 3.2 G/DL CALC A/G RATIO (test code = 2234) 1.4 RATIO BILIRUBIN, TOTAL (test code = 2207) 0.5 MG/DL ALKALINE PHOSPHATASE (test code = 2204) 117 U/L AST (test code = 2218) 19 U/L ALT (test code = 2219) 18 U/L COMPREHENSIVE METABOLIC [id number] 00:00:00* Test Item Value Reference Range Interpretation Comme nts GLUCOSE (test code = 2217) 121 MG/DL BUN (test code = 2208) 24 MG/DL CREATININE (test code = 2214) 0.62 MG/DL eGFR AMER. (test cod e = 59147) 116 ML/MIN/1.73 eGFR NON- AMER. (test code = 11297) 100 ML/MIN/1.73 CALC BUN/CREAT (test code = 2235) 39 RATIO SODIUM (test code = 2231) 142 MEQ/L POTASSIUM (test code = 2228) 4.3 MEQ/L CHLORIDE (test code = 2215) 104 MEQ/L CARBON DIOXIDE (test code = 2206) 26 MEQ/L CALCIUM (test code = 2209) 10.0 MG/DL PROTEIN, TOTAL (test code = 2229) 7.8 G/DL ALBUMIN (test code = 2201) 4.6 G/DL CALC GLOBULIN (test code = 2240) 3.2 G/DL CALC A/G RATIO (test code = 2234) 1.4 RATIO BILIRUBIN, TOTAL (test code = 2207) 0.5 MG/DL ALKALINE PHOSPHATASE (test code = 2204) 117 U/L AST (test code = 2218) 19 U/L ALT (test code = 2219) 18 U/L [id number] 00:00:00* Test Item Value Reference Range Interpretation Comme nts TSH, THIRD GENERATION (test code = 2821) 1.160 UIU/ML [id number] 00:00:00* Test Item Value Reference Range Interpretation Comme nts TSH, THIRD GENERATION (test code = 2821) 1.160 UIU/ML [id number] 00:00:00* Test Item Value Reference Range Interpretation Comme nts TSH, THIRD GENERATION (test code = 2821) 1.160 UIU/ML CBC W/AUTO [id number] 00:00:00* Test Item Value Reference Range Interpretation Comme [...] = 1015) 328 K/UL ABSOLUTE NEUTROPHILS (test c ode = 1066) 6.36 K/UL ABSOLUTE LYMPHOCYTES (test c ode = 1067) 2.26 K/UL ABSOLUTE MONOCYTES (test cod e = 1068) 0.30 K/UL ABSOLUTE EOSINOPHILS (test c ode = 1040) 0.41 K/UL ABSOLUTE BASOPHILS (test cod e = 1069) 0.07 K/UL ABS IMMATURE GRANULOCYTES (t est code = 1020) 0.04 K/UL ABS NUCLEATED RBCS (test cod e = 57756) 0.00 K/UL CBC W/AUTO [id number] 00:00:00* Test Item Value Reference Range Interpretation Comme [...] = 1015) 328 K/UL ABSOLUTE NEUTROPHILS (test c ode = 1066) 6.36 K/UL ABSOLUTE LYMPHOCYTES (test c ode = 1067) 2.26 K/UL ABSOLUTE MONOCYTES (test cod e = 1068) 0.30 K/UL ABSOLUTE EOSINOPHILS (test c ode = 1040) 0.41 K/UL ABSOLUTE BASOPHILS (test cod e = 1069) 0.07 K/UL ABS IMMATURE GRANULOCYTES (t est code = 1020) 0.04 K/UL ABS NUCLEATED RBCS (test cod e = 66213) 0.00 K/UL CBC W/AUTO [id number] 00:00:00* Test Item Value Reference Range Interpretation Comme [...] = 1015) 328 K/UL ABSOLUTE NEUTROPHILS (test c ode = 1066) 6.36 K/UL ABSOLUTE LYMPHOCYTES (test c ode = 1067) 2.26 K/UL ABSOLUTE MONOCYTES (test cod e = 1068) 0.30 K/UL ABSOLUTE EOSINOPHILS (test c ode = 1040) 0.41 K/UL ABSOLUTE BASOPHILS (test cod e = 1069) 0.07 K/UL ABS IMMATURE GRANULOCYTES (t est code = 1020) 0.04 K/UL ABS NUCLEATED RBCS (test cod e = 74196) 0.00 K/UL COMPREHENSIVE METABOLIC [id number] 00:00:00* Test Item Value Reference Range Interpretation Comme nts GLUCOSE (test code = 2217) 121 MG/DL BUN (test code = 2208) 24 MG/DL CREATININE (test code = 2214) 0.62 MG/DL eGFR AMER. (test cod e = 69542) 116 ML/MIN/1.73 eGFR NON- AMER. (test code = 03800) 100 ML/MIN/1.73 CALC BUN/CREAT (test code = 2235) 39 RATIO SODIUM (test code = 2231) 142 MEQ/L POTASSIUM (test code = 2228) 4.3 MEQ/L CHLORIDE (test code = 2215) 104 MEQ/L CARBON DIOXIDE (test code = 2206) 26 MEQ/L CALCIUM (test code = 2209) 10.0 MG/DL PROTEIN, TOTAL (test code = 2229) 7.8 G/DL ALBUMIN (test code = 2201) 4.6 G/DL CALC GLOBULIN (test code = 2240) 3.2 G/DL CALC A/G RATIO (test code = 2234) 1.4 RATIO BILIRUBIN, TOTAL (test code = 2207) 0.5 MG/DL ALKALINE PHOSPHATASE (test code = 2204) 117 U/L AST (test code = 2218) 19 U/L ALT (test code = 2219) 18 U/L COMPREHENSIVE METABOLIC [id number] 00:00:00* Test Item Value Reference Range Interpretation Comme nts GLUCOSE (test code = 2217) 121 MG/DL BUN (test code = 2208) 24 MG/DL CREATININE (test code = 2214) 0.62 MG/DL eGFR AMER. (test cod e = 43844) 116 ML/MIN/1.73 eGFR NON- AMER. (test code = 48561) 100 ML/MIN/1.73 CALC BUN/CREAT (test code = 2235) 39 RATIO SODIUM (test code = 2231) 142 MEQ/L POTASSIUM (test code = 2228) 4.3 MEQ/L CHLORIDE (test code = 2215) 104 MEQ/L CARBON DIOXIDE (test code = 2206) 26 MEQ/L CALCIUM (test code = 2209) 10.0 MG/DL PROTEIN, TOTAL (test code = 9) 7.8 G/DL ALBUMIN (test code = 2201) 4.6 G/DL CALC GLOBULIN (test code = 2240) 3.2 G/DL CALC A/G RATIO (test code = 2234) 1.4 RATIO BILIRUBIN, TOTAL (test code = 7) 0.5 MG/DL ALKALINE PHOSPHATASE (test code = 2203) 117 U/L AST (test code = 8) 19 U/L ALT (test code = 2218) 18 U/L [id number] 00:00:00* Test Item Value Reference Range Interpretation Comme nts TSH, THIRD GENERATION (test code = 2821) 1.160 UIU/ML [id number] 00:00:00* Test Item Value Reference Range Interpretation Comme nts TSH, THIRD GENERATION (test code = 2821) 1.160 UIU/ML [id number] 00:00:00* Test Item Value Reference Range Interpretation Comme nts TSH, THIRD GENERATION (test code = 2821) 1.160 UIU/ML TROPONIN [id number] 17:51:29* Test Item Value Reference Range Interpretation Comments TROPONIN I (test code = 8459104131) 0.001 ng/mL See_Comment [Automated message] The system which generated this result transmitted reference range: <=0.034. The reference range was not used to interpret this result as normal/abnormal. OSCAR (test code = OSCAR) Reference (Normal) [...] to patient's use of biotin. Lab Interpretation (test code = 80605-4) [id number] 17:51:29* Test Item Value Reference Range Interpretation Comme nts NT-proBNP (test code = 1547170920) 61 pg/mL See_Comment [Automated message] The system which generated this result transmitted reference range: <=125. The reference range was not used to interpret this result as normal/abnormal. OSCAR (test code = OSCAR) Biotin has been reported to cause a negative bias, interpret results relative to patient's use of biotin. Lab Interpretation (test code = 25102-0) [facility] (10046)2020-12-06 17:36:10* Test Item Value Reference Range Interpretation Comme nts NA (test code = 3337860737) 137 mmol/L 135-145 K (test code = 6047988862) 4.2 mmol/L 3.5-5.0 CL (test code = 8920037406) 104 mmol/L 98-108 CO2 TOTAL (test code = 4612777038) 25 mmol/L 23-31 AGAP (test code = 8491130057) 2-16 BUN (test code = 4976477686) 20 mg/dL 7-23 GLUCOSE (test code = 2507981222) 104 mg/dL 70-110 CREATININE (test code = 9850949563) 0.58 mg/dL 0.50-1.04 TOTAL BILI (test code = 5839431778) 0.6 mg/dL 0.1-1.1 CALCIUM (test code = 2368063481) 9.4 mg/dL 8.6-10.6 T PROTEIN (test code = 9084229727) 7.8 g/dL 6.3-8.2 ALBUMIN (test code = 3150337074) 4.5 g/dL 3.5-5.0 ALK PHOS (test code = 5757184201) 106 U/L 34-122 ALTv (test code = 1742-6) 20 U/L 5-35 AST(SGOT) (test code = 8551322023) 28 U/L 13-40 eGFR (test code = 9270027516) mL/min/1.73m2 OSCAR (test code = OSCAR) Association of [...] or urine or abnormalities in imaging tests). [facility] 17:31:29* Test Item Value Reference Range Interpretation Comme nts LIPASE (test code = 7795587239) 51 U/L 0-220 Lab Interpretation (test cod e = 74989-0) [facility] [id number] 17:20:05* Test Item Value Reference Range Interpretation Comme nts WBC (test code = 6690-2) See_Comment [Automated [employer]] The system which generated this result transmitted reference range: 4.30 - 11.10 10*3/?L. The reference range was not used to interpret this result as normal/abnormal. RBC (test code = 789-8) See_Comment [Automated [employer]] The system which generated this result transmitted reference range: 3.93 - 5.25 10*6/?L. The reference range was not used to interpret this result as normal/abnormal. HGB (test code = 718-7) 13.8 g/dL 11.6-15.0 HCT (test code = 4544-3) 42.2 % 35.7-45.2 MCV (test code = 787-2) 94.2 fL 80.6-95.5 MCH (test code = 785-6) 30.8 pg 25.9-32.8 MCHC (test code = 786-4) 32.7 g/dL 31.6-35.1 RDW-SD (test code = 24196-2) 43.8 fL 39.0-49.9 RDW-CV (test code = 788-0) 12.8 % 12.0-15.5 PLT (test code = 777-3) See_Comment [Automated messa ge] The system which generated this result transmitted reference range: 166 - 358 10*3/?L. The reference range was not used to interpret this result as normal/abnormal. MPV (test code = 62315-2) 10.6 fL 9.5-12.9 NRBC/100 WBC (test code = 9269790135) See_Comment [Automated [employer]] The system which generated this result transmitted reference range: 0.0 - 10.0 /100 WBCs. The reference range was not used to interpret this result as normal/abnormal. NRBC x10^3 (test code = 2749055964) <0.01 See_Comment [Automated messa ge] The system which generated this result transmitted reference range: 10*3/?L. The reference range was not used to interpret this result as normal/abnormal. GRAN MAT (NEUT) % (test code = 770-8) 76.7 % IMM GRAN % (test code = 3288174059) 0.30 % LYMPH % (test code = 736-9) 17.2 % MONO % (test code = 5905-5) 2.6 % EOS % (test code = 713-8) 2.8 % BASO % (test code = 706-2) 0.4 % GRAN MAT x10^3(ANC) (test code = 7160428886) 6.96 10*3/uL 1.88-7.09 IMM GRAN x10^3 (test code = 2052857689) 0.03 10*3/uL 0.00-0.06 LYMPH x10^3 (test code = 731-0) 1.56 10*3/uL 1.32-3.29 MONO x10^3 (test code = 742-7) 0.24 10*3/uL 0.33-0.92 L EOS x10^3 (test code = 711-2) 0.25 10*3/uL 0.03-0.39 BASO x10^3 (test code = 704-7) 0.04 10*3/uL 0.01-0.07 Lab Interpretation (test code = 35022-1) [facility]HIGH RISK) 2020-02-09 00:00:00* Test Item Value Reference Range Interpretation Comme nts SARS-CoV-2 INTERPRETATION (t est code = 72986) NEGATIVE SOURCE (test code = 93630) NOT SPECIFIED SARS-CoV-2 (COVID-19) by RT-PCR (HIGH RISK)2020-02-09 00:00:00* Test Item Value Reference Range Interpretation Comme nts SARS-CoV-2 INTERPRETATION (t est code = 66171) NEGATIVE SOURCE (test code = 23548) NOT SPECIFIED SARS-CoV-2 (COVID-19) by RT-PCR (HIGH RISK)2020-02-09 00:00:00* Test Item Value Reference Range Interpretation Comme nts SARS-CoV-2 INTERPRETATION (t est code = 26554) NEGATIVE SOURCE (test code = 18448) NOT SPECIFIED SARS-CoV-2 (COVID-19) by RT-PCR (HIGH RISK)2020-02-09 00:00:00* Test Item Value Reference Range Interpretation Comme nts SARS-CoV-2 INTERPRETATION (t est code = 78346) NEGATIVE SOURCE (test code = 31440) NOT SPECIFIED SARS-CoV-2 (COVID-19) by RT-PCR (HIGH RISK)2019-09-24 00:00:00* Test Item Value Reference Range Interpretation Comme nts SARS-CoV-2 INTERPRETATION (t est code = 56627) NEGATIVE SOURCE (test code = 21027) NOT SPECIFIED SARS-CoV-2 (COVID-19) by RT-PCR (HIGH RISK)2019-09-24 00:00:00* Test Item Value Reference Range Interpretation Comme nts SARS-CoV-2 INTERPRETATION (t est code = 05347) NEGATIVE SOURCE (test code = 95777) NOT SPECIFIED SARS-CoV-2 (COVID-19) by RT-PCR (HIGH RISK)2019-09-24 00:00:00* Test Item Value Reference Range Interpretation Comme nts SARS-CoV-2 INTERPRETATION (t est code = 72909) NEGATIVE SOURCE (test code = 64169) NOT SPECIFIED SARS-CoV-2 (COVID-19) by RT-PCR (HIGH RISK)2019-09-24 00:00:00* Test Item Value Reference Range Interpretation Comme nts SARS-CoV-2 INTERPRETATION (t est code = 94846) NEGATIVE SOURCE (test code = 59129) NOT SPECIFIED SARS-CoV-2 (COVID-19) by RT-PCR (HIGH RISK)2019-09-08 00:00:00* Test Item Value Reference Range Interpretation Comme nts SARS-CoV-2 INTERPRETATION (t est code = 57001) NEGATIVE SOURCE (test code = 63651) NOT SPECIFIED SARS-CoV-2 (COVID-19) by RT-PCR (HIGH RISK)2019-09-08 00:00:00* Test Item Value Reference Range Interpretation Comme nts SARS-CoV-2 INTERPRETATION (t est code = 81166) NEGATIVE SOURCE (test code = 35727) NOT SPECIFIED SARS-CoV-2 (COVID-19) by RT-PCR (HIGH RISK)2019-09-08 00:00:00* Test Item Value Reference Range Interpretation Comme nts SARS-CoV-2 INTERPRETATION (t est code = 65967) NEGATIVE SOURCE (test code = 89075) NOT SPECIFIED SARS-CoV-2 (COVID-19) by RT-PCR (HIGH RISK)2019-09-08 00:00:00* Test Item Value Reference Range Interpretation Comme nts SARS-CoV-2 INTERPRETATION (t est code = 71037) NEGATIVE SOURCE (test code = 77176) NOT SPECIFIED CBC W/AUTO [id number] 00:00:00* Test Item Value Reference Range Interpretation Comme nts WBC (test code = 1001) 8.2 K/UL [...] code = 1015) 275 K/UL CBC W/AUTO [id number] 00:00:00* Test Item Value Reference Range Interpretation Comme nts WBC (test code = 1001) 8.2 K/UL [...] code = 1015) 275 K/UL CBC W/AUTO [id number] 00:00:00* Test Item Value Reference Range Interpretation Comme nts WBC (test code = 1001) 8.2 K/UL [...] code = 1015) 275 K/UL COMPREHENSIVE METABOLIC [id number] 00:00:00* Test Item Value Reference Range Interpretation Comme nts GLUCOSE (test code = 2217) 115 MG/DL BUN (test code = 2208) 18 MG/DL CREATININE (test code = 2214) 0.74 MG/DL eGFR AMER. (test cod e = 70619) 105 ML/MIN/1.73 eGFR NON- AMER. (test code = 57429) 91 ML/MIN/1.73 CALC BUN/CREAT (test code = 2235) 24 RATIO SODIUM (test code = 2231) 139 MEQ/L POTASSIUM (test code = 2228) 4.4 MEQ/L CHLORIDE (test code = 2215) 103 MEQ/L CARBON DIOXIDE (test code = 2206) 25 MEQ/L CALCIUM (test code = 2209) 9.8 MG/DL PROTEIN, TOTAL (test code = 2229) 7.1 G/DL ALBUMIN (test code = 2201) 4.4 G/DL CALC GLOBULIN (test code = 2240) 2.7 G/DL CALC A/G RATIO (test code = 2234) 1.6 RATIO BILIRUBIN, TOTAL (test code = 2207) 0.3 MG/DL ALKALINE PHOSPHATASE (test code = 2204) 100 U/L AST (test code = 2218) 21 U/L ALT (test code = 2219) 25 U/L COMPREHENSIVE METABOLIC [id number] 00:00:00* Test Item Value Reference Range Interpretation Comme nts GLUCOSE (test code = 2217) 115 MG/DL BUN (test code = 2208) 18 MG/DL CREATININE (test code = 2214) 0.74 MG/DL eGFR AMER. (test cod e = 50156) 105 ML/MIN/1.73 eGFR NON- AMER. (test code = 13795) 91 ML/MIN/1.73 CALC BUN/CREAT (test code = 2235) 24 RATIO SODIUM (test code = 2231) 139 MEQ/L POTASSIUM (test code = 2228) 4.4 MEQ/L CHLORIDE (test code = 2215) 103 MEQ/L CARBON DIOXIDE (test code = 2206) 25 MEQ/L CALCIUM (test code = 2209) 9.8 MG/DL PROTEIN, TOTAL (test code = 2229) 7.1 G/DL ALBUMIN (test code = 2201) 4.4 G/DL CALC GLOBULIN (test code = 2240) 2.7 G/DL CALC A/G RATIO (test code = 2234) 1.6 RATIO BILIRUBIN, TOTAL (test code = 2207) 0.3 MG/DL ALKALINE PHOSPHATASE (test code = 2204) 100 U/L AST (test code = 2218) 21 U/L ALT (test code = 2219) 25 U/L [id number] 00:00:00* Test Item Value Reference Range Interpretation Comme nts TSH, THIRD GENERATION (test code = 2821) 1.880 UIU/ML [id number] 00:00:00* Test Item Value Reference Range Interpretation Comme nts TSH, THIRD GENERATION (test code = 2821) 1.880 UIU/ML [id number] 00:00:00* Test Item Value Reference Range Interpretation Comme nts TSH, THIRD GENERATION (test code = 2821) 1.880 UIU/ML VITAMIN D, 25 [id number] 00:00:00* Test Item Value Reference Range Interpretation Comme nts VITAMIN D, 25 OH (test code = 4958) 22 NG/ML VITAMIN D, 25 [id number] 00:00:00* Test Item Value Reference Range Interpretation Comme nts VITAMIN D, 25 OH (test code = 4958) 22 NG/ML VITAMIN B 12 AND FOLIC [id number] 00:00:00* Test Item Value Reference Range Interpretation Comme nts VITAMIN B-12 (test code = 2840) 584 PG/ML FOLIC ACID (test code = 2695) 14.0 UG/L VITAMIN B 12 AND FOLIC [id number] 00:00:00* Test Item Value Reference Range Interpretation Comme nts VITAMIN B-12 (test code = 2840) 584 PG/ML FOLIC ACID (test code = 2695) 14.0 UG/L CBC W/AUTO [id number] 00:00:00* Test Item Value Reference Range Interpretation Comme nts WBC (test code = 1001) 8.2 K/UL [...] code = 1015) 275 K/UL CBC W/AUTO [id number] 00:00:00* Test Item Value Reference Range Interpretation Comme nts WBC (test code = 1001) 8.2 K/UL [...] code = 1015) 275 K/UL CBC W/AUTO [id number] 00:00:00* Test Item Value Reference Range Interpretation Comme nts WBC (test code = 1001) 8.2 K/UL [...] code = 1015) 275 K/UL COMPREHENSIVE METABOLIC [id number] 00:00:00* Test Item Value Reference Range Interpretation Comme nts GLUCOSE (test code = 2217) 115 MG/DL BUN (test code = 2208) 18 MG/DL CREATININE (test code = 2214) 0.74 MG/DL eGFR AMER. (test cod e = 71654) 105 ML/MIN/1.73 eGFR NON- AMER. (test code = 17669) 91 ML/MIN/1.73 CALC BUN/CREAT (test code = 2235) 24 RATIO SODIUM (test code = 2231) 139 MEQ/L POTASSIUM (test code = 2228) 4.4 MEQ/L CHLORIDE (test code = 2215) 103 MEQ/L CARBON DIOXIDE (test code = 2206) 25 MEQ/L CALCIUM (test code = 2209) 9.8 MG/DL PROTEIN, TOTAL (test code = 2229) 7.1 G/DL ALBUMIN (test code = 2201) 4.4 G/DL CALC GLOBULIN (test code = 2240) 2.7 G/DL CALC A/G RATIO (test code = 2234) 1.6 RATIO BILIRUBIN, TOTAL (test code = 2207) 0.3 MG/DL ALKALINE PHOSPHATASE (test code = 2204) 100 U/L AST (test code = 2218) 21 U/L ALT (test code = 2219) 25 U/L COMPREHENSIVE METABOLIC [id number] 00:00:00* Test Item Value Reference Range Interpretation Comme nts GLUCOSE (test code = 2217) 115 MG/DL BUN (test code = 2208) 18 MG/DL CREATININE (test code = 2214) 0.74 MG/DL eGFR AMER. (test cod e = 34305) 105 ML/MIN/1.73 eGFR NON- AMER. (test code = 31757) 91 ML/MIN/1.73 CALC BUN/CREAT (test code = 2235) 24 RATIO SODIUM (test code = 2231) 139 MEQ/L POTASSIUM (test code = 2228) 4.4 MEQ/L CHLORIDE (test code = 2215) 103 MEQ/L CARBON DIOXIDE (test code = 2206) 25 MEQ/L CALCIUM (test code = 2209) 9.8 MG/DL PROTEIN, TOTAL (test code = 2229) 7.1 G/DL ALBUMIN (test code = 2201) 4.4 G/DL CALC GLOBULIN (test code = 2240) 2.7 G/DL CALC A/G RATIO (test code = 2234) 1.6 RATIO BILIRUBIN, TOTAL (test code = 2207) 0.3 MG/DL ALKALINE PHOSPHATASE (test code = 2204) 100 U/L AST (test code = 2218) 21 U/L ALT (test code = 2219) 25 U/L [id number] 00:00:00* Test Item Value Reference Range Interpretation Comme nts TSH, THIRD GENERATION (test code = 2821) 1.880 UIU/ML [id number] 00:00:00* Test Item Value Reference Range Interpretation Comme nts TSH, THIRD GENERATION (test code = 2821) 1.880 UIU/ML [id number] 00:00:00* Test Item Value Reference Range Interpretation Comme nts TSH, THIRD GENERATION (test code = 2821) 1.880 UIU/ML VITAMIN D, 25 [id number] 00:00:00* Test Item Value Reference Range Interpretation Comme nts VITAMIN D, 25 OH (test code = 4958) 22 NG/ML VITAMIN D, 25 [id number] 00:00:00* Test Item Value Reference Range Interpretation Comme nts VITAMIN D, 25 OH (test code = 4958) 22 NG/ML VITAMIN B 12 AND FOLIC [id number] 00:00:00* Test Item Value Reference Range Interpretation Comme nts VITAMIN B-12 (test code = 2840) 584 PG/ML FOLIC ACID (test code = 2695) 14.0 UG/L VITAMIN B 12 AND FOLIC [id number] 00:00:00* Test Item Value Reference Range Interpretation Comme nts VITAMIN B-12 (test code = 2840) 584 PG/ML FOLIC ACID (test code = 2695) 14.0 UG/L SARS-CoV-2 (COVID-19) by RT-PCR (HIGH RISK)2019-08-15 00:00:00* Test Item Value Reference Range Interpretation Comme nts SARS-CoV-2 INTERPRETATION (t est code = 97061) NEGATIVE SOURCE (test code = 92153) NOT SPECIFIED SARS-CoV-2 (COVID-19) by RT-PCR (HIGH RISK)2019-08-15 00:00:00* Test Item Value Reference Range Interpretation Comme nts SARS-CoV-2 INTERPRETATION (t est code = 37442) NEGATIVE SOURCE (test code = 26486) NOT SPECIFIED SARS-CoV-2 (COVID-19) by RT-PCR (HIGH RISK)2019-08-15 00:00:00* Test Item Value Reference Range Interpretation Comme nts SARS-CoV-2 INTERPRETATION (t est code = 85258) NEGATIVE SOURCE (test code = 39802) NOT SPECIFIED SARS-CoV-2 (COVID-19) by RT-PCR (HIGH RISK)2019-08-15 00:00:00* Test Item Value Reference Range Interpretation Comme nts SARS-CoV-2 INTERPRETATION (t est code = 28166) NEGATIVE SOURCE (test code = 53318) NOT SPECIFIED POCT RAPID STREP SCREEN FOR GROUP [id number] 07:52:00* Test Item Value Reference Range Interpretation Comme nts POCT GP A STREP (test code = 57736-6) negative Negative - Negative Lab Interpretation (test cod e = 97171-0) Normal [facility] WITH [id number] 05:43:00* Test Item Value Reference Range Interpretation Comme nts WBC (test code = 6690-2) See_Comment H [Automated messa ge] The system which generated this result transmitted reference range: 4.30 - 11.10 10*3/?L. The reference range was not used to interpret this result as normal/abnormal. RBC (test code = 789-8) See_Comment [Automated messa ge] The system which generated this result transmitted reference range: 3.93 - 5.25 10*6/?L. The reference range was not used to interpret this result as normal/abnormal. HGB (test code = 718-7) 12.5 g/dL 11.6-15 HCT (test code = 4544-3) 37.5 % 35.7-45.2 MCV (test code = 787-2) 94.5 fL 80.6-95.5 MCH (test code = 785-6) 31.5 pg 25.9-32.8 MCHC (test code = 786-4) 33.3 g/dL 31.6-35.1 RDW-SD (test code = 92961-1) 44.9 fL 39-49.9 RDW-CV (test code = 788-0) 12.9 % 12-15.5 PLT (test code = 777-3) See_Comment [Automated messa ge] The system which generated this result transmitted reference range: 166 - 358 10*3/?L. The reference range was not used to interpret this result as normal/abnormal. MPV (test code = 04730-6) 10.8 fL 9.5-12.9 NRBC/100 WBC (test code = 2350453318) See_Comment [Automated myTips ssage] The system which generated this result transmitted reference range: 0.0 - 10.0 /100 WBCs. The reference range was not used to interpret this result as normal/abnormal. NRBC x10^3 (test code = 5685188615) <0.01 See_Comment [Automated messa ge] The system which generated this result transmitted reference range: 10*3/?L. The reference range was not used to interpret this result as normal/abnormal. GRAN MAT (NEUT) % (test code = 770-8) 35.7 % IMM GRAN % (test code = 6803341107) 0.90 % LYMPH % (test code = 736-9) 41.4 % MONO % (test code = 5905-5) 4.8 % EOS % (test code = 713-8) 16.2 % BASO % (test code = 706-2) 1.0 % GRAN MAT x10^3(ANC) (test code = 1580026739) 4.13 10*3/uL 1.88-7.09 IMM GRAN x10^3 (test code = 4110174277) 0.10 10*3/uL 0-0.06 H LYMPH x10^3 (test code = 731-0) 4.77 10*3/uL 1.32-3.29 H MONO x10^3 (test code = 742-7) 0.55 10*3/uL 0.33-0.92 EOS x10^3 (test code = 711-2) 1.87 10*3/uL 0.03-0.39 H BASO x10^3 (test code = 704-7) 0.11 10*3/uL 0.01-0.07 H Lab Interpretation (test code = 84505-0) [facility] 05:29:00* Test Item Value Reference Range Interpretation Comme nts NA (test code = 3891180779) 138 mmol/L 135-145 K (test code = 1375639697) 4.2 mmol/L 3.5-5 CL (test code = 3067153371) 106 mmol/L 98-108 CO2 TOTAL (test code = 6494525299) 26 mmol/L 23-31 AGAP (test code = 3245438489) 2-16 BUN (test code = 0803008887) 24 mg/dL 7-23 H GLUCOSE (test code = 0005458126) 104 mg/dL 70-110 CREATININE (test code = 4478849035) 0.82 mg/dL 0.5-1.04 TOTAL BILI (test code = 7181009304) 0.1 mg/dL 0.1-1.1 CALCIUM (test code = 7023003930) 9.4 mg/dL 8.6-10.6 T PROTEIN (test code = 1833124503) 7.2 g/dL 6.3-8.2 ALBUMIN (test code = 7505110015) 4.2 g/dL 3.5-5 ALK PHOS (test code = 6128780520) 86 U/L 34-122 ALTv (test code = 1742-6) 27 U/L 5-35 AST(SGOT) (test code = 1906028122) 27 U/L 13-40 eGFR Calculation (Non-) (test code = 7583975476) mL/min/1.73m2 eGFR Calculation () (test code = 3853919126) mL/min/1.73m2 OSCAR (test code = OSCAR) Association of [...] or abnormalities in imaging tests). Lab Interpretation (test code = 85032-0) [facility]"
== END 2023-09-27 15:51 | disposition home or self-care (01) ==
LOC: ER 14:43 → ERHOLD 18:15 → 4TH 18:59
PROVIDERS: ADMIT Hospitalist; ATTEND Hospitalist
DX: R53.1 Weakness (principal); R29.810 Facial weakness; R51.9 Headache, unspecified; R27.0 Ataxia, unspecified
CPT/HCPCS: 36415; 70450; 70496; 70498; 70551; 71045; 80048; 80061; 82565; 84443; 84484; 85025; 85610; 85730; 94640; 96374; 97116; 97161; 97530; 99284; G0378; J7030; J7512; J7613; Q9967